=== PATIENT | female | born 1980 | race Caucasian/White ===

== ENCOUNTER → 2016-03-21 | Outpatient (CLI) | payer OTHER ==
[~2016-03-21] MED LIST: ALBUAER19 INH; ALPR1TAB2 PO; BACL10TA PO; FLUT1AER5 INH; GABA-113 PO; LEVOIUD PV; OXCA300T4 PO; OXYC-57 PO; PRED50TA PO; PROM25TA9 PO; RIZA10TA18 PO; TPM/50 PO; TRAZ50TA35 PO; VILA1TAB3 PO
[2016-03-21 14:59] LABS: THYROID STIMULATING HORMONE 0.716 uIu/ml (0.300-4.500)
== END | disposition home or self-care (01) ==
LOC: C.LAB 13:57
PROVIDERS: ATTEND Psychiatry & Neurology Psychiatry
DX: F33.2 Major depressive disorder, recurrent severe without psychotic features (principal)

== ENCOUNTER → 2016-08-13 | Outpatient (CLI) | payer OTHER ==
[~2016-08-13] MED LIST changes: -OXYC-57 PO
--- NOTE | 2016-08-13 13:27 | MAMMOGRAPHY REPORT ---
BILATERAL DIGITAL DIAGNOSTIC MAMMOGRAM TOMOSYNTHESIS WITH CAD AND TARGETED LEFT ULTRASOUND: 08/13/2016 CLINICAL HISTORY: 35-year-old woman with a history of bilateral silicone implants, placed approximate ly 5 years ago, presents with pain along the inferior and medial aspect of the left breast, and swell ing and fullness in the left upper outer quadrant. No skin erythema or nipple discharge. TECHNIQUE: Bilateral CC and MLO views of the breasts with and without implant placement views were ob tained. The symphysis was also performed on the implant displaced views. Current study was also lucero luated with a Computer Aided Detection (CAD) system. COMPARISON: Comparison is made to exams dated: 06/20/2013 ultrasound, 06/20/2013 mammogram, 01/02/2011 ultrasound, 01/02/2011 mammogram, 04/13/2009 ultrasound, and 04/13/2009 mammogram - [facility]. BREAST COMPOSITION: The tissue of both breasts is heterogeneously dense, which may obscure small mas ses. FINDINGS: Bilateral subpectoral silicone implants are stable compared to prior mammograms. On the im plant displaced left MLO view there is a possible oval 7 mm mass in the anterior slightly superior br east for which further evaluation with ultrasound was performed. No other new suspicious mass, archi tectural distortion or cluster of microcalcifications is seen bilaterally. Targeted ultrasound was performed along the inferior and medial left breast in the areas of pain desc ribed by the patient. Also throughout the upper outer quadrant in the area of swelling. From the 5: 00, 6:00, 7:00 and medial aspect of the left breast, normal fibroglandular tissue is seen without a s uspicious solid or cystic mass. In the 12:00 periareolar left breast, there is an oval parallel circ umscribed anechoic simple cyst with posterior acoustic enhancement, measuring 6.9 x 3.4 x 6.5 mm. Th is likely correlates with the partially circumscribed mammographic mass seen on the endplate displace d MLO view and is benign. The patient also reported pain while scanning over this mass. Throughout the remainder of the left upper outer quadrant including the axilla, no suspicious solid or cystic ma ss is seen. A few morphologically normal lymph nodes are identified in the left axilla. IMPRESSION: ACR BI-RADS CATEGORY 2: BENIGN, TARGETED ULTRASOUND ACR BI-RADS CATEGORY 2: BENIGN 1. There is no mammographic or targeted sonographic evidence of malignancy. Bilateral subpectoral s ilicone implants are stable compared to prior mammograms. 2. A benign anechoic simple cyst is seen in the 12:00 periareolar left breast and the patient report ed pain while ultrasounding over this mass. 3. Other than a benign cyst, there is no suspicious abnormality or suspicious lymphadenopathy to exp irina the larger areas of medial and inferior pain and upper outer quadrant swelling. Therefore, clin ical follow-up is recommended. These results and recommendations were discussed with the patient at the time of the exam. Approximately 10% of breast cancers are not detected with mammography. A negative mammographic report should not delay biopsy if a clinically suggestive mass is present. Cortney Steven M.D. ay/:08/13/2016 11:00:17 Scrap Baller: Dany LYN(R)(M), [facility] letter sent: Normal 1/2 BI-RADS Code: ACR BI-RADS Category 2: Benign Ultrasound BI-RADS: ACR BI-RADS Category 2: Benign
== END | disposition home or self-care (01) ==
LOC: C.MAMM 08:48
PROVIDERS: ATTEND Surgery Plastic and Reconstructive Surgery
DX: N64.4 Mastodynia (principal); N60.09 Solitary cyst of unspecified breast

== ENCOUNTER 2016-11-27 22:20 | Emergency (ER) | payer OTHER ==
[~2016-11-27] VITALS: Ht 170.2 cm; Wt 68.3 kg
[~2016-11-27 22:20] MED LIST changes: -PRED50TA PO
[2016-11-27 22:23] VITALS: TEMP 36.9; Ht 170.2 cm; Wt 68.3 kg
[2016-11-27] MEDS ORDERED: ONDANSETRON 4MG OD TAB PO STA (22:37)
[2016-11-27] MEDS ORDERED: KETOROLAC TROMETHAMINE 60 MG/2 ML VIAL IM STA (22:37)
[2016-11-28 00:31] VITALS: BP 118/85
[2016-11-28 00:35] VITALS: PULSE 68; O2SAT 98
[2016-11-28] MEDS ORDERED: PRED50TA PO (00:35)
--- NOTE | 2016-11-28 06:49 | EMERGENCY ROOM VISIT NOTE ---
History First contact with patient: 22:28 Chief Complaint: NECK PAIN Stated Complaint: SEVERE NECK & BACK PAIN History of Present Illness The patient is a 36 year old female who presents to the Emergency Room with complaints of lower neck pain that has been slowly worsening over the past week. The patient does not recall distinct injury or trauma. She has followed with a chiropractor for this, and she states the chiropractor did improve her back pain, but not her neck pain. Most of her discomfort is in the lower neck, and the discomfort worsens with flexion and extension of the neck. The patient does not have lightheadedness, dizziness, vision changes, or hearing changes. No recent fever or illness. She evidently has been taking baclofen, ibuprofen, and Tylenol for her symptoms without significant improvement. The patient was having difficulty with rest tonight, prompting her presentation. She does not have numbness or paresthesias. No neck surgery in the past. She rates her discomfort a 9/10. Review of Systems More than 10 systems were reviewed and otherwise negative with the exception of history of present illness. 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 (3) Depression (4) DYSPLASIA OF CERVIX, UNSPECIFIED (5) ESOPHAGEAL REFLUX (6) HUMAN PAPILLOMA VIRUS (7) INFECTIOUS MONONUCLEOSIS (8) Migraine (9) MIGRAINE UNSPECIFIED W/O INTRACTABLE MIGRAINE Family History FHx: lung disease Social History Smoking Status: Never Smoker Alcohol Use: occasionally Drug Use: other Marital Status: , in relationship Housing Status: lives with family Occupation Status: employed Current/Historical Medications Scheduled Gabapentin (Neurontin), 300 MG PO HS Levonorgestrel (Iud) (Mirena), 1 PV CONTINOUS Prednisone (Prednisone), 50 MG PO DAILY Topiramate (Topamax), 50 MG PO HS Trazodone Hcl (Trazodone), 50 MG PO HS Vilazodone Hcl (Viibryd), 40 MG PO HS Scheduled PRN Alprazolam (Xanax), 1 TAB PO BID PRN for Anxiety Baclofen (Lioresal), 10 MG PO TID PRN for Muscle Spasms Promethazine Hcl (Phenergan), 25 MG PO Q6H PRN for Nausea Rizatriptan Benzoate (Maxalt), 10 MG PO DAILY PRN for Headache Physical Exam Vital Signs Date Time Temp Pulse Resp B/P (MAP) Pulse Ox O2 Delivery O2 Flow Rate FiO2 11/28/16 00:35 68 16 98 11/28/16 00:31 118/85 11/28/16 00:20 69 100 11/28/16 00:05 73 100 11/28/16 00:01 113/85 11/27/16 23:50 76 100 11/27/16 23:37 74 16 115/86 100 Room Air 11/27/16 23:36 115/86 11/27/16 22:23 36.9 95 16 139/96 97 Room Air Physical Exam VITALS: Vitals are noted on the nurse's note and reviewed by myself. Vital signs stable. GENERAL: Well-developed, well-nourished, white female, who is in no acute distress and resting comfortably. Patient is cooperative with the examination. NECK: Supple without nuchal rigidity. No lymphadenopathy. No thyromegaly. Cervical spine is with mild tenderness at the C5-C6 level with mild paravertebral spasm. No meningismus. HEART: Regular rate and rhythm without murmurs gallops or rubs. LUNGS: Clear to auscultation bilaterally without wheezes, rales or rhonchi. No retractions or accessory muscle use. MUSCULOSKELETAL: No muscle atrophy, erythema, or edema noted. Full range of motion without joint tenderness in all extremities. NEURO: Patient was alert and oriented to person place and time. CN II through XII grossly intact. Medical Decision & Procedures Medications Administered Medications (Trade) Dose Ordered Sig/Patricia Route Start Time Stop Time Status Last Admin Dose Admin Ketorolac Tromethamine (Toradol Inj) 60 mg NOW STAT IM 11/27/16 22:37 11/27/16 22:39 DC 11/27/16 22:45 60 MG Ondansetron HCl (Zofran Odt) 4 mg NOW STAT PO 11/27/16 22:37 11/27/16 22:39 DC 11/27/16 22:45 4 MG ED Course Physical exam and history were performed. Nursing notes, EMR, and Medication List were personally reviewed. Patient appears to have lower neck pain for the past several days. On exam she does have some tenderness and spasm. She was given 60 mg IM Toradol here in the department and x-rays. X-rays were reviewed by myself and my attending, and are without significant acute findings. Overall the patient appears well for discharge home. I suspect her symptoms are musculoskeletal in nature, and she should continue her baclofen. I will also provide her a short course of prednisone to help with symptoms. She evidently has an upcoming appointment with orthopedics next week, and should continue this. She was otherwise invited back to the ER with any new, worsening, or concerning symptoms. The chart was completed utilizing [employer] Speech Voice Recognition Software. Grammatical errors, random word insertions, pronoun errors, and incomplete sentences are an occasional consequence of this system due to software limitations, ambient noise, and hardware issues. Any formal questions or concerns about the content, text, or information contained within the body of this dictation should be directly addressed to the provider for clarification. . Medical Decision Differential diagnosis includes, but is not limited to: Sprain, strain, fracture , dislocation, subluxation, contusion, aneurysm/dissection, vascular injury, meningitis, encephalitis, and others [place] Drug Monitoring Program Search Results: patient reviewed within database Drug Monitoring Findings: Multiple prescriptions for Xanax and Adderall over the past one year. 40 total prescription for controlled substances in the past 12 months. Medication Reconcilliation Current Medication List: was personally reviewed by me Blood Pressure Screening Patient's blood pressure: Normal blood pressure Impression Primary Impression: Neck pain Departure Information Dispostion Home / Self-Care Condition GOOD Prescriptions Prednisone (Prednisone) 50 Mg Tab 50 MG PO DAILY for 4 Days, #4 TAB Prov: Koffi Schwab PA-C 11/28/16 Forms HOME CARE DOCUMENTATION FORM, Work Instructions, Additional Instructions: Patient was evaluated in the emergency department for medical care. Retur to work on 11/30/2016. Please excuse. IMPORTANT VISIT INFORMATION Patient Instructions My [facility] Additional Instructions You were seen and evaluated today on an emergency basis only. This is not a substitute for, or an effort to provide, complete comprehensive medical care. It is not possible to recognize and treat all injuries or illnesses in a single emergency department visit. For this reason it is recommended that you followup with your primary care physician or orthopedist for ongoing care and evaluation. For baseline pain relief you may alternate ibuprofen and acetaminophen every 4 hours for pain control. Take 600 mg ibuprofen (Advil) and then 4 hours later take 1000 mg acetaminophen (Tylenol). Do not take more than 3000 mg acetaminophen in a single day. Continue baclofen as prescribed Take prednisone as prescribed You are welcome to return to the emergency department anytime with new, worsening, or concerning symptoms. Work Instructions Additional Work Instructions: Patient was evaluated in the emergency department for medical care. Return to work on 11/30/2016. Please excuse.
--- NOTE | 2016-11-28 07:15 | DIAGNOSTIC IMAGING REPORT ---
C-SPINE ROUTINE 4 OR 5 VIEWS CLINICAL HISTORY: 36 years-old Female presenting with Low neck pain, posterior C7 pain. TECHNIQUE: Lateral, bilateral oblique, frontal, and open-mouth odontoid views of the cervical spine were obtained. COMPARISON: 01/30/2016. FINDINGS: The C7 vertebral body is fully visualized. No radiographic evidence of fracture or subluxation. Vertebral bodies maintain normal height and alignment. Normal predental interval. Lateral masses of C1 articulate normally with C2. No osseous neural foraminal narrowing. No prevertebral soft tissue swelling. Lung apices clear. IMPRESSION: No radiographic evidence of acute fracture or subluxation. Electronically signed by: Guille Adam M.D. 11/28/2016 7:13 AM Dictated Date/Time: 11/28/2016 7:12 AM
== END 2016-11-28 00:41 | disposition home or self-care (01) ==
LOC: C.EDB 22:21
DX: M54.2 Cervicalgia (principal); F41.9 Anxiety disorder, unspecified; Z86.73 Personal history of transient ischemic attack (TIA), and cerebral infarction without residual deficits; F32.9 Major depressive disorder, single episode, unspecified; K21.9 Gastro-esophageal reflux disease without esophagitis; G43.909 Migraine, unspecified, not intractable, without status migrainosus; Z86.19 Personal history of other infectious and parasitic diseases; Z83.6 Family history of other diseases of the respiratory system; Z79.899 Other long term (current) drug therapy

== ENCOUNTER → 2017-03-11 | Outpatient (CLI) | payer OTHER ==
[~2017-03-11] MED LIST changes: -ALBUAER19 INH; -FLUT1AER5 INH; +LEVO1IUD2 PV; -LEVOIUD PV; -OXCA300T4 PO
[2017-03-11 12:12] LABS: HEMATOCRIT 43.2 % (37-47); HEMOGLOBIN 14.7 g/dL (12.0-16.0); MEAN CELL VOLUME 95.6 fL (80-100); MEAN CORPUSCULAR HEMOGLOBIN 32.5 pg (25-34); MEAN PLATELET VOLUME 9.9 fL (7.4-10.4); PLATELET COUNT 279 K/uL (130-400); RED CELL DISTRIBUTION WIDTH CV 13.1 % (11.5-14.5); WHITE BLOOD COUNT 4.87 K/uL (4.8-10.8)
[2017-03-11 12:26] LABS: ALBUMIN 4.1 gm/dl (3.4-5.0); ALT/SGPT 22 U/L (12-78); AST/SGOT 12 U/L (15-37); BLOOD UREA NITROGEN 13 mg/dl (7-18); CALCIUM 9.2 mg/dl (8.5-10.1); CARBON DIOXIDE 26 mmol/L (21-32); CHOLESTEROL 121 mg/dl (0-200); CREATININE 0.95 mg/dl (0.60-1.20); GLUCOSE 89 mg/dl (70-99); POTASSIUM 3.6 mmol/L (3.5-5.1); SODIUM 140 mmol/L (136-145)
[2017-03-11 12:35] LABS: ALKALINE PHOSPHATASE 61 U/L (45-117); LDL CHOLESTEROL CALCULATED 58 mg/dl; TOTAL PROTEIN 6.9 gm/dl (6.4-8.2)
[2017-03-11 12:43] LABS: T3 FREE 4.04 pg/ml (2.30-4.20)
== END | disposition home or self-care (01) ==
LOC: C.LAB 10:06
PROVIDERS: ATTEND Psychiatry & Neurology Psychiatry
DX: F33.2 Major depressive disorder, recurrent severe without psychotic features (principal)

== ENCOUNTER → 2017-10-13 | Outpatient (CLI) | payer OTHER ==
[2017-10-13 15:55] LABS: BASO % 0.9 %; BASO ABS # 0.05 K/uL (0-0.2); EOS % 1.1 %; EOS ABS # 0.06 K/uL (0-0.5); HEMATOCRIT 44.2 % (37-47); HEMOGLOBIN 15.4 g/dL (12.0-16.0); IG# 0.01 K/uL (0.00-0.02); LYMPH % 45.9 %; LYMPH ABS # 2.61 K/uL (1.2-3.4); MEAN CELL VOLUME 94.8 fL (80-100); MEAN CORPUSCULAR HGB CONC 34.8 g/dl (32-36); NEUT % 44.9 %; NEUT ABS # 2.56 K/uL (1.4-6.5); PLATELET COUNT 252 K/uL (130-400); RED CELL DISTRIBUTION WIDTH CV 12.6 % (11.5-14.5); RED CELL DISTRIBUTION WIDTH SD 43.5 fL (36.4-46.3); WHITE BLOOD COUNT 5.69 K/uL (4.8-10.8)
[2017-10-13 16:19] LABS: ALBUMIN 3.9 gm/dl (3.4-5.0); ALKALINE PHOSPHATASE 69 U/L (45-117); ALT/SGPT 21 U/L (12-78); AST/SGOT 11 U/L (15-37); BLOOD UREA NITROGEN 14 mg/dl (7-18); CALCIUM 8.3 mg/dl (8.5-10.1); CARBON DIOXIDE 21 mmol/L (21-32); CREATININE 0.99 mg/dl (0.60-1.20); GLUCOSE 82 mg/dl (70-99); POTASSIUM 3.8 mmol/L (3.5-5.1); SODIUM 137 mmol/L (136-145); TOTAL PROTEIN 6.6 gm/dl (6.4-8.2)
== END | disposition home or self-care (01) ==
LOC: C.LAB 14:32
PROVIDERS: ATTEND Psychiatry & Neurology Psychiatry
DX: F33.2 Major depressive disorder, recurrent severe without psychotic features (principal)

== ENCOUNTER 2018-08-09 19:20 | Inpatient (IN) ==
--- OUTSIDE RECORDS SUMMARY | 2018-08-09 19:23 | External Medical Summary | Continuity of Care Document ---
:1980 Author Name Low Sadler, Provider Address Unavailable Unavailable , Care Team Providers Name Role Phone Tay Mackey [email or web address] Raghu Sadler, Sials [email or web address] Saulo COPELAND Unavailable Unavailable Unavailable Unavailable Unavailable Assessments Assessed Problems:Dysplastic nevusNeoplasm of uncertain behavior of skinActinic keratosisAcne vulgaris Problems Headache (784.0) (R51) Depression with anxiety (300.4) (F41.8) Perioral dermatitis (695.3) (L71.0) Hypertrophic scar (701.4) (L91.0) Acne vulgaris (706.1) (L70.0) Neoplasm of uncertain behavior of skin (238.2) (D48.5) Actinic keratosis (702.0) (L57.0) Dysplastic nevus (216.9) (D23.9) Migraine headache (346.90) (G43.909) Allergies and Adverse Reactions Erythromycin Derivatives (Allergy) Penicillins (Allergy) Sulfa Drugs (Allergy) Medications Clindamycin Phosphate 1 % External Solut ion; APPLY SPARINGLY TO AFFECTED AREA(S) TWICE DAILY Viktoriya Mackey Start: 16-Dec-2016 Quantity: 1 60 ML Bottle Refills: 3 Mirena (52 MG) 20 MCG/24HR Intrauterine Intrauterine D Viktoriya Guzman Start: 29-Jul-2013 Refills: 0 Maxalt-SERVICE MECH[employer]IC 10 MG Oral Tablet Disintegrat ing; TAKE 1 TABLET AT ONSET OF HEADACHE. MAY REPEAT EVERY 2 HOURS NEEDED. MAXIMUM 3 TABLETS IN 24 HOURS. Viktoriya Krishnamurthy Start: 18-Nov-2010 Quantity: 9 Refills: 5 Procedures Procedures not documented Immunizations Immunizations not documented Social History - Smoking Status Never smoker Interventions Medication ChangesClindamycin Phosphate 1 % External Solution - Start Follow-ups/ReferralsFollow-up visit in 1 year; Done: 16 Dec 2016 Plan of Treatment Planned Observations Planned Goals not documented Results No Known Results Results not documented Encounters Appointment; Tay Mackey M.D. 16-Dec-2016 11:00 Encounter Diagnosis: Problem not documented
[2018-08-09] MEDS ORDERED: KETOROLAC TROMETHAMINE 15 MG/ML VIAL IV ONE (19:50)
[2018-08-09] MEDS ORDERED: ONDANSETRON INJ 2 MG/ML 2 ML VIAL IV STA (19:50)
[2018-08-09] MEDS ORDERED: SODIUM CHLORIDE 0.9% 1000ML 2,000 ML IV ONE (19:50)
[2018-08-09 20:28] LABS: Hematocrit (blood only) 36.4 % (37-47); Hemoglobin 12.3 g/dL (12.0-16.0); Mean Corpuscular Hgb Conc 33.8 g/dL (32-36); Mean Corpuscular Volume 88.3 fL (80-100); Mean Platelet Volume 9.5 fL (7.4-10.4); Platelet Count 257 K/uL (130-400); RDW Coefficient of Variation 13.5 % (11.5-14.5); RDW Standard Deviation 43.6 fL (36.4-46.3); Red Blood Count 4.12 M/uL (4.2-5.4); White Blood Count 11.32 K/uL (4.8-10.8)
[2018-08-09 20:56] LABS: Albumin Level 3.2 gm/dl (3.4-5.0); BUN Creatinine Ratio 17.1 (10-20); Calcium 8.2 mg/dl (8.5-10.1); Creatinine Clr Calc Pharmacy 77.7 ml/min; Est GFR (African American) 84.2; Est GFR (Non-African American) 72.7; Potassium 3.5 mmol/L (3.5-5.1)
[2018-08-09 20:57] LABS: Basophils # (auto) 0.02 K/uL (0-0.2); Basophils % (auto) 0.2 %; Eosinophils # (auto) 0.04 K/uL (0-0.5); Eosinophils % (auto) 0.4 %; Immature Granulocytes # (auto) 0.03 K/uL (0.00-0.02); Immature Granulocytes % (auto) 0.3 %; Lymphocytes # (auto) 1.36 K/uL (1.2-3.4); Monocytes # (auto) 0.56 K/uL (0.11-0.59); Monocytes % (auto) 4.9 %; Neutrophils # (auto) 9.31 K/uL (1.4-6.5); Neutrophils % (auto) 82.2 %
[2018-08-09 20:58] LABS: Bilirubin,Total 0.8 mg/dl (0.2-1); Globulin 3.1 gm/dl (2.5-4.0); Total Protein 6.3 gm/dl (6.4-8.2)
[2018-08-09 21:07] LABS: iSTAT Creatinine 0.9 mg/dl (0.6-1.3); iSTAT Hemoglobin 12.2 g/dl (12.0-16.0); iSTAT Ionized Calcium 1.17 mmol/l (1.12-1.32); iSTAT Potassium 3.5 mEq/L (3.3-5.0)
[2018-08-09] MEDS ORDERED: OPTIRAY 320 125ml IV PRN (21:24)
[2018-08-09 21:44] LABS: Appearance Urine Cloudy (Clear); Bacteria Urine Automated 1+ (Negative); Bilirubin Urine Negative (Negative); Blood Urine Negative (Negative); Color Urine Dark Yellow; Epithelial Cell Urine Auto >30 /lpf (0-5); Glucose Urine UA Negative (Negative); Ketones Urine 1+ (Negative); Leukocyte Esterase Urine Trace (Negative); Nitrite Urine Negative (Negative); Protein Urine Trace (Negative); RBC Urine Automated 0-4 /hpf (0-4); Urobilinogen Urine Negative (Negative)
--- NOTE | 2018-08-09 21:53 | CT Scan Report ---
CHEST CTA for PULMONARY ARTERIES CT DOSE: 519.89 mGy.cm HISTORY: pleuritic chest pain hypotensive recent surg TECHNIQUE: Multiaxial CT images of the chest were performed following the intravenous administration of contrast to evaluate the pulmonary arteries. Maximal intensity projection images were also obtaine d. A dose lowering technique was utilized adhering to the principles of ALARA. COMPARISON STUDY: Chest CTA 02/04/2016. FINDINGS: There is extensive posterior spinal fusion throughout the majority of the thoracic spine wi th pedicle screws and rods. The hardware appears intact. This results in mild artifact throughout the pulmonary arteries. However, no definite filling defects within the pulmonary arteries to suggest pu lmonary embolus. Normal caliber thoracic aorta with no evidence for dissection. Trace bilateral pleur al effusions. The heart is normal in size. No pericardial effusion. Normal esophagus. No mediastinal or hilar lymphadenopathy. Bilateral breast implants are again noted. No pneumothorax. The central air ways are patent. Mild dependent changes seen within the lung bases posteriorly. Otherwise, the lungs are clear. Small focal right perihilar area of air trapping is noted. IMPRESSION: 1. No evidence for pulmonary embolus with limitations as described above. 2. Extensive posterior spinal fusion throughout the majority of the thoracic spine. The hardware appe ars intact. 3. Trace bilateral pleural effusions. Electronically signed by: Jacky Howe M.D. 08/09/2018 9:52 PM
--- NOTE | 2018-08-09 21:59 | CT Scan Report ---
ABDOMEN AND PELVIS CT WITH IV CONTRAST CT DOSE: HISTORY: periumbilical abd pain w/ fevers TECHNIQUE: Multiaxial CT images of the abdomen and pelvis were performed following the use of intrave nous contrast. A dose lowering technique was utilized adhering to the principles of ALARA. COMPARISON STUDY: Abdomen and pelvis CT 08/26/2013. FINDINGS: Mild dependent changes and trace bilateral pleural effusions are noted at the lung bases. T here are bilateral breast implants. No pneumoperitoneum. No pneumatosis. Extensive posterior spinal f usion seen within the thoracic and upper lumbar spine. The visualized hardware appears intact. The li angelina, spleen, gallbladder, pancreas, and adrenal glands are unremarkable. A few subcentimeter bilatera l renal hypodense lesions. These are generally too small to characterize but statistically represent cysts. No hydronephrosis. Metallic artifact from the spinal fusion hardware results in suboptimal lucero luation of the abdominal structures. Trace pericholecystic fluid. No gallbladder wall thickening. Thi s could be due to overhydration. No retroperitoneal lymphadenopathy. An intrauterine device is in goo d position. The bladder and ovaries are unremarkable. No evidence for bowel obstruction. Moderate wel l-formed stool within the colon. The appendix is fluid-filled and demonstrates a thickened wall with adjacent periappendiceal fat stranding. Therefore, this is consistent with acute appendicitis. The ap pendix measures up to 1 cm diameter. No evidence for a periappendiceal abscess or perforation at this time. IMPRESSION: 1. Acute appendicitis. 2. Trace bilateral pleural effusions and trace pericholecystic fluid. This may be due to overhydratio n. No gallbladder wall thickening. Electronically signed by: Jacky Howe M.D. 08/09/2018 9:57 PM
[2018-08-09 22:06] LABS: Amphetamines+Metham, Urine Neg (Neg); Barbiturates, Urine Neg (Neg); Benzodiazepine, Urine Pos (Neg); Cocaine, Urine Neg (Neg); MDMA (Ecstacy), Urine Neg (Neg); Methadone, Urine Neg (Neg); Opiate, Urine Pos (Neg); Phencyclidine, Urine Neg (Neg)
[2018-08-09] MEDS ORDERED: PIPERACILL/TAZOBAC CONSULT ACTIVE PRN (22:26)
[2018-08-09] MEDS ORDERED: PIPERACILLIN/TAZOBACTAM 3.375 GM/115 ML BAG IV ONE (22:30)
[2018-08-09] MEDS ORDERED: BUPIVACAINE 0.5 % 5 MG/1 ML MPF 30ML VIAL ONE (22:34)
--- NOTE | 2018-08-09 22:34 | History & Physical Report ---
Date of Service August 09, 2018 Assessment & Plan (1) Appendicitis: pt with acute appendicitis- for laparoscopic appendectomy possible open operation understands possible risks of bleeding, infection, bowel bladder injury History of Present Illness Primary Care Provider: Kaleb Aviles DO to ER with acute abd pain- CT shows acute appendicitis CTA neg for PE or acute process Allergies Allergy/AdvReac Type Severity Reaction Status Date / Time cefixime Allergy Severe ANAPHYLAXIS Verified 08/09/18 22:18 erythromycin base Allergy Severe HIVES Verified 08/09/18 22:18 sodium benzoate Allergy Severe ANAPHYLAXIS Verified 08/09/18 22:19 Sulfa (Sulfonamide Allergy Intermediate ITCHY Verified 08/09/18 22:18 Antibiotics) procaine AdvReac Severe RAPID Verified 08/09/18 22:18 HEART BEAT Home Medications Home Medications Medication Instructions Recorded Confirmed Type acetaminophen [Tylenol] 795 mg PO Q6H PRN 03/11/18 08/09/18 History duloxetine 60 mg PO QAM 03/11/18 08/09/18 History levonorgestrel [Mirena] 1 applic INTRAUTERINE UD 03/11/18 08/09/18 History naloxegol [Movantik] 25 mg PO DAILY #7 tab 03/11/18 08/09/18 Rx rizatriptan 10 mg PO DAILY PRN 03/11/18 08/09/18 History topiramate 75 mg PO BID 03/11/18 08/09/18 History trazodone 300 mg PO HS 03/11/18 08/09/18 History amoxapine 25 mg PO QAM 08/09/18 08/09/18 History lubiprostone [Amitiza] 8 mcg PO BIDM 08/09/18 08/09/18 History morphine 15 mg PO BID 08/09/18 08/09/18 History ondansetron 4 mg TRANSLINGUAL Q8H PRN 08/09/18 08/09/18 History oxycodone 30 mg PO Q4H PRN 08/09/18 08/09/18 History promethazine 25 mg PO Q6H PRN 08/09/18 08/09/18 History tizanidine 6 mg PO Q6H PRN 08/09/18 08/09/18 History Past Med/Surg History Medical History Chronic back pain Surgical History Spinal surgery in prior 3 months Social History Preferred Language: Croatian Feels Safe at Home: Yes Smoking Status: Never smoker Review of Systems All systems reviewed & are unremarkable except as noted in HPI & below Physical Exam Constitutional: well developed and well nourished; no acute distress Eyes: + anicteric sclerae Neck: normal visual inspection Respiratory: normal respiratory effort; no respiratory distress Cardiovascular: Rate/Rhythm: regular rate and regular rhythm Gastrointestinal (Abdomen): Inspection/Auscultation: abdomen normal to inspection Percussion/Palpation: + abdomen tender and abdomen soft tender RLQ Skin: no rashes, warm and dry Results & Data Vital Signs (Past 12 Hours) Vital Signs Temp Pulse Pulse Resp BP BP Pulse Ox 08/09/18 21:58 70 18 92/55 L 100 08/09/18 20:37 68 16 93/51 L 96 08/09/18 20:33 96 08/09/18 19:29 37.1 C 93 H 16 81/47 L 116 H
[2018-08-09] MEDS ORDERED: TIZANIDINE HCL 4 MG TABLET PO PRN (23:05)
[2018-08-09] MEDS ORDERED: PROMETHAZINE HCL 12.5 MG in SODIUM CHLORIDE 0.9% 50 ML IV PRN (23:06)
[2018-08-09 23:10] LABS: Magnesium 2.1 mg/dl (1.8-2.4)
[2018-08-09] MEDS ORDERED: PROPOFOL IV EMULSION 10 MG/ML 20 ML VIAL IV ONE (23:47)
[2018-08-09] MEDS ORDERED: SUCCINYLCHOLINE 100MG/5ML SYR ONE (23:47)
[2018-08-09] MEDS ORDERED: LIDOCAINE HCL 2% 2 ML VIAL/AMP(20MG/ML) INFIL ONE (23:47)
[2018-08-09] MEDS ORDERED: fentaNYL citrate 100 MCG/2 ML VIAL ONE (23:48)
--- NOTE | 2018-08-10 00:07 | Anesthesiology Consultation ---
Date of Service August 10, 2018 Assessment & Plan (1) Encounter for pre-operative examination: Chart Review Chart Review: Acceptable Risk for Surgery and Patient NOT seen in Pre Admission Testing Consults Requested none History Surgery Operation Date: 08/09/18 22:30 Proposed Procedures p Laparoscopic Appendectomy - Lucas Saba MD, FACS Height/Weight Height: 5 ft 8 in Weight: 67.6 kg Allergies Allergy/AdvReac Type Severity Reaction Status Date / Time cefixime Allergy Severe ANAPHYLAXIS Verified 08/09/18 22:18 erythromycin base Allergy Severe HIVES Verified 08/09/18 22:18 sodium benzoate Allergy Severe ANAPHYLAXIS Verified 08/09/18 22:19 Sulfa (Sulfonamide Allergy Intermediate ITCHY Verified 08/09/18 22:18 Antibiotics) procaine AdvReac Severe RAPID Verified 08/09/18 22:18 HEART BEAT Medications Home Medications Medication Instructions Recorded Confirmed Last Taken acetaminophen [Tylenol] 795 mg PO Q6H PRN 03/11/18 08/09/18 03/10/18 duloxetine 60 mg PO QAM 03/11/18 08/09/18 03/10/18 levonorgestrel [Mirena] 1 applic INTRAUTERINE UD 03/11/18 08/09/18 03/11/18 naloxegol [Movantik] 25 mg PO DAILY #7 tab 03/11/18 08/09/18 Unknown rizatriptan 10 mg PO DAILY PRN 03/11/18 08/09/18 Unknown topiramate 75 mg PO BID 03/11/18 08/09/18 03/10/18 trazodone 300 mg PO HS 03/11/18 08/09/18 03/10/18 amoxapine 25 mg PO QAM 08/09/18 08/09/18 Unknown lubiprostone [Amitiza] 8 mcg PO BIDM 08/09/18 08/09/18 Unknown morphine 15 mg PO BID 08/09/18 08/09/18 Unknown ondansetron 4 mg TRANSLINGUAL Q8H PRN 08/09/18 08/09/18 Unknown oxycodone 30 mg PO Q4H PRN 08/09/18 08/09/18 Unknown promethazine 25 mg PO Q6H PRN 08/09/18 08/09/18 Unknown tizanidine 6 mg PO Q6H PRN 08/09/18 08/09/18 Unknown Active Medications Generic Name Dose Route Start Last Admin Trade Name Ynes PRN Reason Stop Dose Admin Ioversol 115 ml 08/09/18 21:24 08/09/18 21:24 Optiray 320 125ml IV 08/13/18 21:23 115 ml ONCE PRN Administration Interaction Checking NPO Date Last Intake of Fluids: 08/09/18 Time Last Intake of Fluids: 20:00 Date Last Intake of Solids: 08/07/18 Past Medical History Medical History Chronic back pain Past Surgical History Surgical History Spinal surgery in prior 3 months Social History Smoking Status: Never smoker Physical Exam Vital Signs Last Vital Signs Temp 37.1 C 08/09/18 19:29 Pulse 70 08/09/18 22:51 Resp 18 08/09/18 22:51 BP 95/72 L 08/09/18 22:51 Pulse Ox 100 08/09/18 22:51
[2018-08-10] MEDS ORDERED: ATROPINE SULFATE 0.1 MG/ML 10ML SYR IV PRN (00:11)
[2018-08-10] MEDS ORDERED: ePHEDrine sulfate 50 MG/ML AMP IV PRN (00:11)
[2018-08-10] MEDS ORDERED: HYDROmorphone INJ 1 MG/ML SYRINGE IV PRN ×2 (00:11→01:49)
[2018-08-10] MEDS ORDERED: fentaNYL citrate 100 MCG/2 ML VIAL ONE (00:36)
--- NOTE | 2018-08-10 01:06 | Emergency Department Note ---
Entered by Zoraida Thomas acting as a scribe for Mario Kaminski DO History of Present Illness General Chief complaint: Abdominal Pain Stated complaint: ABD PAIN, FEVER, HEADACHE Source: patient History of Present Illness Provider complaint: abdominal pain Onset (ago): day(s) 3 Location: abdomen Severity: severe Maximum Pain Intensity: 8 Quality: + other (pressure) Associated symptoms: + headaches, + nausea/vomiting and + other (+diarrhea) Treatments prior to arrival: other (Tylenol) The patient is a 37 year old female who presents to the Emergency Room with complaints of abdominal pain. The patient states that she has had severe abdominal pain in her mid-abdomen that started on Thursday. She states that the pain feels like pressure and it worsens when she takes deep breaths. The patient states that after the pain she had nausea, vomiting, and diarrhea that lasted all night, but has subsided today. She reports that she has a headache that she took Tylenol for an hour ago. She states she is currently Opioid tapering that was prescribed by her PCP. The patient reports that she was on Opioids for 7 months and she has been tapering for 2 months. She states that she takes 4 a day. She denies any previous similar episodes. She denies any previous withdrawal treatments. The patient states that she has a history of hypertension. Home Medications Home Medications Medication Instructions Recorded Confirmed Type acetaminophen [Tylenol] 795 mg PO Q6H PRN 03/11/18 08/09/18 History duloxetine 60 mg PO QAM 03/11/18 08/09/18 History levonorgestrel [Mirena] 1 applic INTRAUTERINE UD 03/11/18 08/09/18 History naloxegol [Movantik] 25 mg PO DAILY #7 tab 03/11/18 08/09/18 Rx rizatriptan 10 mg PO DAILY PRN 03/11/18 08/09/18 History topiramate 75 mg PO BID 03/11/18 08/09/18 History trazodone 300 mg PO HS 03/11/18 08/09/18 History amoxapine 25 mg PO QAM 08/09/18 08/09/18 History lubiprostone [Amitiza] 8 mcg PO BIDM 08/09/18 08/09/18 History morphine 15 mg PO BID 08/09/18 08/09/18 History ondansetron 4 mg TRANSLINGUAL Q8H PRN 08/09/18 08/09/18 History oxycodone 30 mg PO Q4H PRN 08/09/18 08/09/18 History promethazine 25 mg PO Q6H PRN 08/09/18 08/09/18 History tizanidine 6 mg PO Q6H PRN 08/09/18 08/09/18 History Allergies Allergy/AdvReac Type Severity Reaction Status Date / Time cefixime Allergy Severe ANAPHYLAXIS Verified 08/09/18 22:18 erythromycin base Allergy Severe HIVES Verified 08/09/18 22:18 sodium benzoate Allergy Severe ANAPHYLAXIS Verified 08/09/18 22:19 Sulfa (Sulfonamide Allergy Intermediate ITCHY Verified 08/09/18 22:18 Antibiotics) procaine AdvReac Severe RAPID Verified 08/09/18 22:18 HEART BEAT Past Med/Surg History Medical History Chronic back pain Surgical History Spinal surgery in prior 3 months Social History Preferred Language: Czech Feels Safe at Home: Yes Smoking Status: Never smoker Review of Systems See HPI for pertinent positives & negatives. and A total of 10 systems reviewed and were otherwise negative Physical Exam Vital Signs Vital Signs - 24 hr 08/09/18 19:29 08/09/18 20:33 08/09/18 20:37 Temperature 37.1 C Temperature Source Oral Sepsis Recent Fever Within 48 Hours Yes Sepsis Action Taken by Nursing No Action Required Pulse Rate 93 H Pulse Rate [Apical] 68 Pulse Rhythm Regular Pulse Rhythm [Apical] Regular Pulse Strength Normal Pulse Strength [Apical] Normal Respiratory Rate 16 16 Respiratory Effort / Characteristics Non-Labored Non-Labored Respiratory Depth Normal Normal Respiratory Pattern Regular Regular Blood Pressure 81/47 L Blood Pressure [Left Arm] 93/51 L Blood Pressure Mean 58 Blood Pressure Mean [Left Arm] 65 Blood Pressure Position [Left Arm] Lying Pulse Oximetry 116 H 96 96 Oxygen Delivery Method Room Air Room Air Room Air 08/09/18 21:58 08/09/18 22:51 Temperature Temperature Source Sepsis Recent Fever Within 48 Hours Sepsis Action Taken by Nursing Pulse Rate Pulse Rate [Apical] 70 70 Pulse Rhythm Pulse Rhythm [Apical] Pulse Strength Pulse Strength [Apical] Respiratory Rate 18 18 Respiratory Effort / Characteristics Respiratory Depth Respiratory Pattern Blood Pressure Blood Pressure [Left Arm] 92/55 L 95/72 L Blood Pressure Mean Blood Pressure Mean [Left Arm] 67 79 Blood Pressure Position [Left Arm] Pulse Oximetry 100 100 Oxygen Delivery Method Room Air Room Air GENERAL: falling asleep, appeared intoxicated EYE EXAM: normal conjunctiva, PERRL and EOM's grossly intact OROPHARYNX: no exudate, no erythema, lips, buccal mucosa, and tongue normal and mucous membranes are moist NECK: supple, no nuchal rigidity, no adenopathy, non-tender LUNGS: Clear to auscultation. Normal chest wall mechanics HEART: no murmurs, S1 normal and S2 normal ABDOMEN: abdomen soft, non-tender, normo-active bowel sounds, no masses, no rebound or guarding. BACK: Back is symmetrical on inspection and there is no deformity, no midline tenderness, no CVA tenderness. SKIN: no rashes and no bruising UPPER EXTREMITIES: upper extremities are grossly normal. LOWER EXTREMITIES: No pitting edema. NEURO EXAM: Normal sensorium, cranial nerves II-XII grossly intact, normal speech, no gross weakness of arms, no gross weakness of legs. Course 1940: The patient was evaluated in room A9B, and a complete history and physical examination were performed. 2219: I reviewed the patient's case with Dr. Horne [facility] Hospitalist. He will evaluate the patient for further management. Consultations Consultation #1: Dr. Horne [facility] Hospitalist Time: 22:20 Administered Medications Ioversol (Optiray 320 125ml) 115 ml IV ONCE PRN PRN Reason: Interaction Checking Stop: 08/13/18 21:23 Last Admin: 08/09/18 21:24 Dose: 115 ml Documented by: [id number] Discontinued Medications Sodium Chloride (Nss 1000ml) 2,000 mls @ 999 mls/hr IV .Q2H1M ONE Stop: 08/09/18 21:50 Last Admin: 08/09/18 20:30 Dose: 999 mls/hr Documented by: [id number] Piperacillin Sod/Tazobactam Sod (Zosyn) 3.375 gm in 115 mls @ 230 mls/hr IV TODAY@2230 ONE Stop: 08/09/18 22:59 Last Admin: 08/09/18 22:46 Dose: 230 mls/hr Documented by: [id number] Ketorolac Tromethamine (Toradol) 15 mg IV NOW ONE Stop: 08/09/18 19:51 Last Admin: 08/09/18 20:30 Dose: 15 mg Documented by: [id number] Ondansetron HCl (Zofran) 4 mg IV NOW STA Stop: 08/09/18 19:51 Last Admin: 08/09/18 20:30 Dose: 4 mg Documented by: [id number] Medical Decision Making Differential Diagnosis Differential diagnosis: Etiologies such as appendicitis, diverticulitis, PUD, biliary pathology, UTI, pancreatitis, obstruction, mesenteric ischemia, aortic pathology, infections, inflammatory bowel disease, renal colic, as well as others were entertained. Medical Records Attestation: I reviewed the patient's medical records. Home Medications Current Medication List: was personally reviewed by me Laboratory Data Attestation: I reviewed the patient's lab results. Result diagrams: 08/09/18 20:16 08/09/18 20:16 Lab Results 08/09/18 08/09/18 08/09/18 Range/Units 20:16 20:16 20:54 WBC 11.32 H (4.8-10.8) K/uL RBC 4.12 L (4.2-5.4) M/uL Hgb 12.3 (12.0-16.0) g/dL POC Hgb 12.2 (12.0-16.0) g/dl Hct 36.4 L (37-47) % POC Hct 36 L (37-47) % MCV 88.3 (80-100) fL MCH 29.9 (25-34) pg MCHC 33.8 (32-36) g/dL RDW Std Deviation 43.6 (36.4-46.3) fL RDW Coeff of Nelson 13.5 (11.5-14.5) % Plt Count 257 (130-400) K/uL MPV 9.5 (7.4-10.4) fL Immature Gran % (Auto) 0.3 % Neut % (Auto) 82.2 % Lymph % (Auto) 12.0 % Bond % (Auto) 4.9 % Eos % (Auto) 0.4 % Baso % (Auto) 0.2 % Immature Gran # (Auto) 0.03 H (0.00-0.02) K/uL Neut # (Auto) 9.31 H (1.4-6.5) K/uL Lymph # (Auto) 1.36 (1.2-3.4) K/uL Bond # (Auto) 0.56 (0.11-0.59) K/uL Eos # (Auto) 0.04 (0-0.5) K/uL Baso # (Auto) 0.02 (0-0.2) K/uL POC Sodium 133 L (135-144) mEq/L Sodium 133 L (136-145) mmol/L POC Potassium 3.5 (3.3-5.0) mEq/L Potassium 3.5 (3.5-5.1) mmol/L POC Chloride 99 L (101-112) mEq/L Chloride 104 (98-107) mmol/L Carbon Dioxide 25 (21-32) mmol/L POC Total CO2 20 L (24-31) mEq/l Anion Gap 4.0 (3-11) POC Anion Gap 19.0 (16-25) mmol/L POC BUN 17 (7-18) mg/dl BUN 17 (7-18) mg/dl Creatinine 0.98 (0.6-1.2) mg/dl POC Creatinine 0.9 (0.6-1.3) mg/dl Est Cr Clr Drug Dosing 77.7 ml/min Est GFR ( Amer) 84.2 Est GFR (Non-Af Amer) 72.7 BUN/Creatinine Ratio 17.1 (10-20) Glucose 114 H (70-99) mg/dl POC Glucose (other) 118 H (70-99) mg/dl Calcium 8.2 L (8.5-10.1) mg/dl POC Ioniz Calcium Patricio 1.17 (1.12-1.32) mmol/l Magnesium 2.1 (1.8-2.4) mg/dl Total Bilirubin 0.8 (0.2-1) mg/dl AST 8 L (15-37) U/L ALT 15 (12-78) U/L Alkaline Phosphatase 106 (45-117) U/L Total Protein 6.3 L (6.4-8.2) gm/dl Albumin 3.2 L (3.4-5.0) gm/dl Globulin 3.1 (2.5-4.0) gm/dl Albumin/Globulin Ratio 1.0 (0.9-2) Lipase 39 L (73-393) U/L TSH 1.600 (0.300-4.500) uIu/ml Urine Color Urine Appearance (Clear) Urine pH (4.5-7.5) Ur Specific [place] (1.000-1.030) Urine Protein (Negative) Urine Glucose (UA) (Negative) Urine Ketones (Negative) Urine Blood (Negative) Urine Nitrite (Negative) Urine Bilirubin (Negative) Urine Urobilinogen (Negative) Ur Leukocyte Esterase (Negative) Urine WBC (Auto) (0-5) /hpf Urine RBC (Auto) (0-4) /hpf U Hyaline Cast (Auto) (0-5) /lpf U Epithel Cells (Auto) (0-5) /lpf Urine Bacteria (Auto) (Negative) Ur Renal Epithelial Cell POC Ur Test (NEG) Urine Opiates Screen (Neg) Ur Methadone, Qual (Neg) Urine Barbiturates (Neg) Ur Phencyclidine (PCP) (Neg) U Amphetamin/Meth Scrn (Neg) MDMA (Ecstasy) Screen (Neg) U Benzodiazepines Scrn (Neg) Ur Cocaine Metabolite (Neg) U Marijuana (THC) Screen (Neg) Ethyl Alcohol mg/dL (0-3) mg/dl 08/09/18 08/09/18 08/09/18 Range/Units 20:55 21:15 21:15 WBC (4.8-10.8) K/uL RBC (4.2-5.4) M/uL Hgb (12.0-16.0) g/dL POC Hgb (12.0-16.0) g/dl Hct (37-47) % POC Hct (37-47) % MCV (80-100) fL MCH (25-34) pg MCHC (32-36) g/dL RDW Std Deviation (36.4-46.3) fL RDW Coeff of Nelson (11.5-14.5) % Plt Count (130-400) K/uL MPV (7.4-10.4) fL Immature Gran % (Auto) % Neut % (Auto) % Lymph % (Auto) % Bond % (Auto) % Eos % (Auto) % Baso % (Auto) % Immature Gran # (Auto) (0.00-0.02) K/uL Neut # (Auto) (1.4-6.5) K/uL Lymph # (Auto) (1.2-3.4) K/uL Bond # (Auto) (0.11-0.59) K/uL Eos # (Auto) (0-0.5) K/uL Baso # (Auto) (0-0.2) K/uL POC Sodium (135-144) mEq/L Sodium (136-145) mmol/L POC Potassium (3.3-5.0) mEq/L Potassium (3.5-5.1) mmol/L POC Chloride (101-112) mEq/L Chloride (98-107) mmol/L Carbon Dioxide (21-32) mmol/L POC Total CO2 (24-31) mEq/l Anion Gap (3-11) POC Anion Gap (16-25) mmol/L POC BUN (7-18) mg/dl BUN (7-18) mg/dl Creatinine (0.6-1.2) mg/dl POC Creatinine (0.6-1.3) mg/dl Est Cr Clr Drug Dosing ml/min Est GFR ( Amer) Est GFR (Non-Af Amer) BUN/Creatinine Ratio (10-20) Glucose (70-99) mg/dl POC Glucose (other) (70-99) mg/dl Calcium (8.5-10.1) mg/dl POC Ioniz Calcium Patricio (1.12-1.32) mmol/l Magnesium (1.8-2.4) mg/dl Total Bilirubin (0.2-1) mg/dl AST (15-37) U/L ALT (12-78) U/L Alkaline Phosphatase (45-117) U/L Total Protein (6.4-8.2) gm/dl Albumin (3.4-5.0) gm/dl Globulin (2.5-4.0) gm/dl Albumin/Globulin Ratio (0.9-2) Lipase (73-393) U/L TSH (0.300-4.500) uIu/ml Urine Color Dark Yellow Urine Appearance Cloudy A (Clear) Urine pH 6.0 (4.5-7.5) Ur Specific [place] 1.020 (1.000-1.030) Urine Protein Trace H (Negative) Urine Glucose (UA) Negative (Negative) Urine Ketones 1+ H (Negative) Urine Blood Negative (Negative) Urine Nitrite Negative (Negative) Urine Bilirubin Negative (Negative) Urine Urobilinogen Negative (Negative) Ur Leukocyte Esterase Trace H (Negative) Urine WBC (Auto) 10-30 H (0-5) /hpf Urine RBC (Auto) 0-4 (0-4) /hpf U Hyaline Cast (Auto) 1-5 (0-5) /lpf U Epithel Cells (Auto) >30 H (0-5) /lpf Urine Bacteria (Auto) 1+ H (Negative) Ur Renal Epithelial Cell Not Reportable POC Ur Test NEG (NEG) Urine Opiates Screen (Neg) Ur Methadone, Qual (Neg) Urine Barbiturates (Neg) Ur Phencyclidine (PCP) (Neg) U Amphetamin/Meth Scrn (Neg) MDMA (Ecstasy) Screen (Neg) U Benzodiazepines Scrn (Neg) Ur Cocaine Metabolite (Neg) U Marijuana (THC) Screen (Neg) Ethyl Alcohol mg/dL < 3.0 (0-3) mg/dl 08/09/18 Range/Units 21:15 WBC (4.8-10.8) K/uL RBC (4.2-5.4) M/uL Hgb (12.0-16.0) g/dL POC Hgb (12.0-16.0) g/dl Hct (37-47) % POC Hct (37-47) % MCV (80-100) fL MCH (25-34) pg MCHC (32-36) g/dL RDW Std Deviation (36.4-46.3) fL RDW Coeff of Nelson (11.5-14.5) % Plt Count (130-400) K/uL MPV (7.4-10.4) fL Immature Gran % (Auto) % Neut % (Auto) % Lymph % (Auto) % Bond % (Auto) % Eos % (Auto) % Baso % (Auto) % Immature Gran # (Auto) (0.00-0.02) K/uL Neut # (Auto) (1.4-6.5) K/uL Lymph # (Auto) (1.2-3.4) K/uL Bond # (Auto) (0.11-0.59) K/uL Eos # (Auto) (0-0.5) K/uL Baso # (Auto) (0-0.2) K/uL POC Sodium (135-144) mEq/L Sodium (136-145) mmol/L POC Potassium (3.3-5.0) mEq/L Potassium (3.5-5.1) mmol/L POC Chloride (101-112) mEq/L Chloride (98-107) mmol/L Carbon Dioxide (21-32) mmol/L POC Total CO2 (24-31) mEq/l Anion Gap (3-11) POC Anion Gap (16-25) mmol/L POC BUN (7-18) mg/dl BUN (7-18) mg/dl Creatinine (0.6-1.2) mg/dl POC Creatinine (0.6-1.3) mg/dl Est Cr Clr Drug Dosing ml/min Est GFR ( Amer) Est GFR (Non-Af Amer) BUN/Creatinine Ratio (10-20) Glucose (70-99) mg/dl POC Glucose (other) (70-99) mg/dl Calcium (8.5-10.1) mg/dl POC Ioniz Calcium Patricio (1.12-1.32) mmol/l Magnesium (1.8-2.4) mg/dl Total Bilirubin (0.2-1) mg/dl AST (15-37) U/L ALT (12-78) U/L Alkaline Phosphatase (45-117) U/L Total Protein (6.4-8.2) gm/dl Albumin (3.4-5.0) gm/dl Globulin (2.5-4.0) gm/dl Albumin/Globulin Ratio (0.9-2) Lipase (73-393) U/L TSH (0.300-4.500) uIu/ml Urine Color Urine Appearance (Clear) Urine pH (4.5-7.5) Ur Specific [place] (1.000-1.030) Urine Protein (Negative) Urine Glucose (UA) (Negative) Urine Ketones (Negative) Urine Blood (Negative) Urine Nitrite (Negative) Urine Bilirubin (Negative) Urine Urobilinogen (Negative) Ur Leukocyte Esterase (Negative) Urine WBC (Auto) (0-5) /hpf Urine RBC (Auto) (0-4) /hpf U Hyaline Cast (Auto) (0-5) /lpf U Epithel Cells (Auto) (0-5) /lpf Urine Bacteria (Auto) (Negative) Ur Renal Epithelial Cell POC Ur Test (NEG) Urine Opiates Screen Pos H (Neg) Ur Methadone, Qual Neg (Neg) Urine Barbiturates Neg (Neg) Ur Phencyclidine (PCP) Neg (Neg) U Amphetamin/Meth Scrn Neg (Neg) MDMA (Ecstasy) Screen Neg (Neg) U Benzodiazepines Scrn Pos H (Neg) Ur Cocaine Metabolite Neg (Neg) U Marijuana (THC) Screen Neg (Neg) Ethyl Alcohol mg/dL (0-3) mg/dl Imaging Data Radiologist's Impression: Radiology results as stated below per my review and the radiologist's interpretation: CHEST CTA for PULMONARY ARTERIES CT DOSE: 519.89 mGy.cm HISTORY: pleuritic chest pain hypotensive recent surg TECHNIQUE: Multiaxial CT images of the chest were performed following the intravenous administration of contrast to evaluate the pulmonary arteries. Maximal intensity projection images were also obtained. A dose lowering technique was utilized adhering to the principles of ALARA. COMPARISON STUDY: Chest CTA 02/04/2016. FINDINGS: There is extensive posterior spinal fusion throughout the majority of the thoracic spine with pedicle screws and rods. The hardware appears intact. This results in mild artifact throughout the pulmonary arteries. However, no definite filling defects within the pulmonary arteries to suggest pulmonary embolus. Normal caliber thoracic aorta with no evidence for dissection. Trace bilateral pleural effusions. The heart is normal in size. No pericardial effusion. Normal esophagus. No mediastinal or hilar lymphadenopathy. Bilateral breast implants are again noted. No pneumothorax. The central airways are paten t. Mild dependent changes seen within the lung bases posteriorly. Otherwise, the lungs are clear. Small focal right perihilar area of air trapping is noted. IMPRESSION: 1. No evidence for pulmonary embolus with limitations as described above. 2. Extensive posterior spinal fusion throughout the majority of the thoracic spine. The hardware appears intact. 3. Trace bilateral pleural effusions. Electronically signed by: Jacky Howe M.D. 08/09/2018 9:52 PM ABDOMEN AND PELVIS CT WITH IV CONTRAST CT DOSE: HISTORY: periumbilical abd pain w/ fevers TECHNIQUE: Multiaxial CT images of the abdomen and pelvis were performed following the use of intravenous contrast. A dose lowering technique was utilized adhering to the principles of ALARA. COMPARISON STUDY: Abdomen and pelvis CT 08/26/2013. FINDINGS: Mild dependent changes and trace bilateral pleural effusions are noted at the lung bases. There are bilateral breast implants. No pneumoperitoneum. No pneumatosis. Extensive posterior spinal fusion seen within the thoracic and upp er lumbar spine. The visualized hardware appears intact. The liver, spleen, gallbladder, pancreas, and adrenal glands are unremarkable. A few subcentimeter bilateral renal hypodense lesions. These are generally too small to characterize but statistically represent cysts. No hydronephrosis. Metallic artifact from the spinal fusion hardware results in suboptimal evaluation of the abdominal structures. Trace pericholecystic fluid. No gallbladder wall thickening. This could be due to overhydration. No retroperitoneal lymphadenopathy. An intrauterine device is in good position. The bladder and ovaries are unremarkable. No evidence for bowel obstruction. Moderate well-formed stool within the colon. The appendix is fluid-filled and demonstrates a thickened wall with adjacent periappendiceal fat stranding. Therefore, this is consistent with acute appendicitis. The appendix measures up to 1 cm diameter. No evidence for a periappendiceal abscess or perforation at this time. IMPRESSION: 1. Acute appendicitis. 2. Trace bilateral pleural effusions and trace pericholecystic fluid. This may be due to overhydration. No gallbladder wall thickening. Electronically signed by: Jacky Howe M.D. 08/09/2018 9:57 PM MDM Narrative Patient is a 37-year-old female presents the ER for abdominal pain. On exam she does appear to be intoxicated. She falls asleep quickly. She was slightly hypotensive but this was when she was sleeping. Systolics dipped down to the 70s. Labs were obtained and showed no significant leukocytosis or anemia. BMP with mild hyponatremia. Bilirubin LFTs TSH and lipase is unremarkable. was negative. UA was contaminated. Tox was obtained. Alcohol was negative. CT abdomen pelvis shows appendicitis. I did CT the chest that she had pleuritic pain and was hypotensive. Discussed with general surgery patient was admitted for acute appendicitis. Was given 2 L IV fluids while in the ER. Impression & Plan Appendicitis Discharge Plan Visit Data *Final* Discharge Date/Time: 08/09/18 22:54 Chief Complaint: Abdominal Pain Stated Complaint: ABD PAIN, FEVER, HEADACHE ED Provider: Mario Kaminski Discharge Problem: Appendicitis Patient Disposition: Admitted As Inpatient Discharge Instructions Interventions: ED Discharge Assessment Last Done: 08/09/18 22:54 Discharge Problem: Appendicitis Qualifiers: Appendicitis type: unspecified Qualified Code(s): K37 - Unspecified appendicitis The scribe's documentation has been prepared under my direction and personally reviewed by me in its entirety. I confirm that the note above accurately reflects all work, treatment, procedures, and medical decision making performed by me.
[2018-08-10] MEDS ORDERED: PROPOFOL IV EMULSION 10 MG/ML 20 ML VIAL IV ONE (01:15)
[2018-08-10] MEDS ORDERED: ROCURONIUM BROMIDE 10 MG/ML 5 ML VIAL ONE (01:16)
[2018-08-10] MEDS ORDERED: NEOSTIGMINE METHYLSULFATE 5 MG/5 ML SYR ONE (01:25)
[2018-08-10] MEDS ORDERED: GLYCOPYRROLATE 0.2 MG/ML VIAL ONE (01:25)
--- NOTE | 2018-08-10 01:42 | Operative Report ---
Post Operative Report Pre & Post Diagnosis Operation Date: 08/09/18 22:30 Pre-Op Diagnosis: Acute appendicitis. Post-Op Diagnosis: Acute appendicitis. ruptured, abscess Procedure Operation Date: 08/09/18 22:30 Actual Procedures p Laparoscopic Appendectomy converted to open. - Lucas Saba MD, FACS drainage of abscess Surgeon Lucas Saba MD, FACS [employer] nurses Estimated Blood Loss 20 Findings Consistent with Post-Op Diagnosis Specimens appendix Description of Procedure see dictated note I attest to the content of the Intraoperative Record and any orders documented therein. Any exceptions are noted below.
[2018-08-10] MEDS ORDERED: ACETAMINOPHEN 1,000 MG/100 ML VIAL IV ONE (01:45)
[2018-08-10] MEDS ORDERED: PROMETHAZINE HCL 25 MG in SODIUM CHLORIDE 0.9% 50 ML IV PRN (01:49)
[2018-08-10] MEDS ORDERED: PIPERACILL/TAZOBAC CONSULT ACTIVE PRN (01:49)
[2018-08-10] MEDS ORDERED: ONDANSETRON INJ 2 MG/ML 2 ML VIAL IV PRN (01:49)
[2018-08-10] MEDS ORDERED: OXYCODONE HCL IR 5 MG TAB (IMMEDIATE RELEASE) PO PRN ×2 (01:52→05:02)
[2018-08-10] MEDS ORDERED: HYDROmorphone INJ 2 MG/ML SYR/VIAL IV PRN (01:52)
[2018-08-10] MEDS ORDERED: ONDANSETRON INJ 2 MG/ML 2 ML VIAL ONE (01:56)
[2018-08-10] MEDS ORDERED: ACETAMINOPHEN 1,000 MG/100 ML VIAL IV PRN (02:05)
[2018-08-10] MEDS ORDERED: ACETAMINOPHEN 1000 MG/100 ML IV IV ONE (02:11)
--- NOTE | 2018-08-10 02:13 | Anesthesiology Progress Note ---
Date of Service August 10, 2018 Anesthesia Post Procedure Vital Signs Vital Signs: Temp Pulse Pulse Resp BP BP Pulse Ox 08/09/18 22:51 70 18 95/72 L 100 08/09/18 21:58 70 18 92/55 L 100 08/09/18 20:37 68 16 93/51 L 96 08/09/18 20:33 96 08/09/18 19:29 37.1 C 93 H 16 81/47 L 116 H Pain Intensity Lower Abdomen: Pain Intensity: 6 Transfer of Care Handoff Completed per policy Notes Mental Status: alert / awake / arousable Patient Amnestic to Procedure: Yes Nausea / Vomiting: adequately controlled Pain: adequately controlled Airway Patency, RR, SpO2: stable & adequate BP & HR: stable & adequate Hydration State: stable & adequate Anesthetic Complications: no major complications apparent and Pt Satisfied with anesthetic care
[2018-08-10] MEDS ORDERED: HYDROmorphone INJ 0.5 MG/0.5 ML SYR ONE (02:30)
[2018-08-10 04:07] LABS: Basophils # (auto) 0.01 K/uL (0-0.2); Basophils % (auto) 0.1 %; Eosinophils # (auto) 0.07 K/uL (0-0.5); Eosinophils % (auto) 0.8 %; Hematocrit (blood only) 37.4 % (37-47); Hemoglobin 12.7 g/dL (12.0-16.0); Immature Granulocytes # (auto) 0.01 K/uL (0.00-0.02); Immature Granulocytes % (auto) 0.1 %; Lymphocytes # (auto) 1.36 K/uL (1.2-3.4); Lymphocytes % (auto) 15.4 %; Mean Corpuscular Volume 88.6 fL (80-100); Mean Platelet Volume 9.5 fL (7.4-10.4); Monocytes % (auto) 6.8 %; Neutrophils # (auto) 6.78 K/uL (1.4-6.5); Neutrophils % (auto) 76.8 %; Platelet Count 243 K/uL (130-400); RDW Coefficient of Variation 13.6 % (11.5-14.5); RDW Standard Deviation 44.7 fL (36.4-46.3); Red Blood Count 4.22 M/uL (4.2-5.4); White Blood Count 8.83 K/uL (4.8-10.8)
--- NOTE | 2018-08-10 04:22 | Operative Report ---
DATE OF OPERATION: 08/10/2018 NAME OF OPERATION: Laparoscopy with open appendectomy and drainage of periappendiceal abscess. STAFF SURGEON: Lucas Saba MD ANESTHESIA: General. DESCRIPTION OF PROCEDURE: The patient was brought in the operating room and placed on the operating table in supine position. Pneumatic stockings, orogastric tube were placed. Her abdomen was prepped and draped in usual fashion. 0.5% plain Marcaine was used to anesthetize all incisions. Incision was made above the umbilicus, carrying dissection down to the fascia, placing a Veress needle producing pneumoperitoneum. An 11 mm port was placed at this level, and then under visualization, a 5 mm port placed suprapubically and a 12 mm port placed in the left lower quadrant. On dissection, I was unable to identify the base of the appendix. I was able to identify what appeared to be an area of abscess in the right lower quadrant with cloudy fluid in the pelvis. The fluid was aspirated and irrigated and then I attempted to dissect the appendix free. On CAT scan, it appeared to be retrocecal. There was severe induration and I was concerned the cecum or ileum would be injured trying to dissect the indurated tissue. Therefore, incision was made transversely in the right lower quadrant carrying dissection down into the right lower quadrant. Initially what I felt was the appendix was just indurated cecal tissue, but the appendix was severely adherent to the retroperitoneum and the only way I was able to identify was by palpation and then gradually was able to dissect it free transecting the base first, ligating it using 0 chromic suture and imbricated using 0 chromic suture, then gradually transecting the mesoappendix in segments ligating it using 2-0 silk suture and 0 chromic suture. The appendix was removed. The right lower quadrant irrigated as well as the pelvis with saline solution. Then, a 15 round Edgardo-Ferguson drain placed through a separate stab incision into the right lower quadrant and pelvis, secured using 3-0 nylon suture. At this point, the posterior fascia and peritoneum were reapproximated using #1 chromic suture. The site irrigated again and then the anterior fascia reapproximated using #1 PDS suture. A quarter-inch Edith drain placed into the subcutaneous space and secured to the skin using 4-0 nylon suture. The skin was loosely reapproximated using subcuticular interrupted Monocryl and then some spaced Steri-Strips. The umbilical fascia and left lower quadrant fascia closed using 0 Vicryl suture. The incisions were loosely reapproximated using subcuticular 4-0 Monocryl in interrupted fashion and then Steri-Strips were applied. I used 5-0 Prolene for the umbilical skin. Dressings applied and the patient transferred to recovery room in stable condition. I attest to the content of the Intraoperative Record and any orders documented therein. Any exception s are noted below.
[2018-08-10 04:23] LABS: BUN Creatinine Ratio 16.7 (10-20); Calcium 8.1 mg/dl (8.5-10.1); Creatinine Clr Calc Pharmacy 105.8 ml/min; Est GFR (African American) 122.3; Est GFR (Non-African American) 105.5; Magnesium 1.9 mg/dl (1.8-2.4); Potassium 3.8 mmol/L (3.5-5.1)
[2018-08-10] MEDS: PIPERACILLIN/TAZOBACTAM 3.375 GM in DEXTROSE 5% 100 ML IV SCH ×3 (04:55→20:37)
--- NOTE | 2018-08-10 04:59 | Hospitalist Consultation ---
Date of Consultation August 10, 2018 Assessment & Plan (1) Ruptured appendix: Final Assessment and Recommendations as follows : Appendiceal abscess secondary to ruptured appendix Status post emergent surgery Patient not septic. Pain uncontrolled as per patient. Patient used to high doses of narcotics given chronic back pain from scoliosis surgery. She claims her back pain is always a 12/10. mood disorder, stable hypothyroidism, euthyroid as of yesterday's TSH chronic idiopathic constipation on lubiprostone, patient presented with diarrhea symptoms past tobacco abuse Agree with Zosyn. Continue home dose of Oxycodone 30 mg IR every 4 hours as needed as per patient request. (Patient clarifies that she does not take extended release morphine documented in home med profile.) judicious IV narcotic use. Toradol as needed. Hold lubiprostone for diarrhea, check stool C. difficile if patient with persistent diarrhea symptoms DVT prophylaxis SCDs Thank you very much for this consultation. Dr. Arora will follow patient's progress. History of Present Illness Reason for Consultation: Medical management Requesting Physician: Dr. Saba Attending Physician: Lucas Saba MD, FACS History of Present Illness PCP: Dr. Aviles CC : abdominal pain History obtained from patient and records. Medical history significant for mood disorder, hypothyroidism, chronic back pain status post scoliosis surgery, chronic idiopathic constipation on lubiprostone, past tobacco abuse. Recent confinement November 2014 for viral illness. 3 days history of achy lower abdominal pain starting from the right side and crossing over, going to the back, loose stools, fever, chills, achy headache. At the ER, patient received IV Zosyn for acute appendicitis. Patient underwent emergent open appendectomy and drainage of periappendiceal abscess. Patient currently complaining of unbearable postop abdominal pain. Medical History as above Surgical History : D&C, breast biopsy, cervical procedures, breast augmentation, nasal endoscopy, back surgery Family History : Thyroid cancer, diabetes, heart disease Personal/Social history : Past tobacco abuse, occasional EtOH intake, disabled Allergies Allergy/AdvReac Type Severity Reaction Status Date / Time cefixime Allergy Severe ANAPHYLAXIS Verified 08/09/18 22:18 erythromycin base Allergy Severe HIVES Verified 08/09/18 22:18 sodium benzoate Allergy Severe ANAPHYLAXIS Verified 08/09/18 22:19 Sulfa (Sulfonamide Allergy Intermediate ITCHY Verified 08/09/18 22:18 Antibiotics) procaine AdvReac Severe RAPID Verified 08/09/18 22:18 HEART BEAT Home Medications Home Medications Medication Instructions Recorded Confirmed Type acetaminophen [Tylenol] 795 mg PO Q6H PRN 03/11/18 08/09/18 History duloxetine 60 mg PO QAM 03/11/18 08/09/18 History levonorgestrel [Mirena] 1 applic INTRAUTERINE UD 03/11/18 08/09/18 History rizatriptan 10 mg PO DAILY PRN 03/11/18 08/09/18 History topiramate 75 mg PO BID 03/11/18 08/09/18 History trazodone 300 mg PO HS 03/11/18 08/09/18 History amoxapine 25 mg PO QAM 08/09/18 08/09/18 History lubiprostone [Amitiza] 8 mcg PO BIDM 08/09/18 08/09/18 History morphine 15 mg PO BID PRN 08/09/18 08/09/18 History ondansetron 4 mg TRANSLINGUAL Q8H PRN 08/09/18 08/09/18 History oxycodone 30 mg PO Q4H PRN 08/09/18 08/09/18 History promethazine 25 mg PO Q6H PRN 08/09/18 08/09/18 History tizanidine 6 mg PO Q6H PRN 08/09/18 08/09/18 History Patient History Medical History Chronic constipation (Chronic) Migraine (Chronic) Chronic back pain Depression (Chronic) Anxiety (Chronic) Neck pain (Chronic) Surgical History History of spinal surgery (Chronic) 02/17/2018 - Arthrodesis spine posterior thoracic. Posterior spinal segmental instrumentation 7 to 12 PSF Social History Preferred Language: Icelandic Communication Ability: Effective Fixed Wing Pilot Required: No Beliefs That Will Affect Care: None Current Living Situation: Alone Other Information That Helps Us Care for You: No Feels Safe at Home: Yes Safety Concerns: Feels Safe At This Time Smoking Status: Unknown if ever smoked Hx Alcohol Use: No Hx Substance Use: Yes substance use type: painkillers Last Used Substance: Unknown Review of Systems Review of Systems: As per HPI, all 10 systems reviewed, all other ROS negative Physical Exam Physical Exam: GENERAL: Slightly uncomfortable, no respiratory distress SKIN: Normal color, warm HEENT: [place] palpebral conjunctivae, no ptosis, dry buccal mucosa NECK : Supple, no tenderness CHEST : CTA, no tenderness HEART : RRR, no obvious murmurs ABDOMEN: Dressing over anterior abdomen, distention, hypogastric tenderness EXTREMITIES : No LE swelling/tenderness, no other conspicuous deformities noted NEUROLOGIC : Coherent, no facial asymmetry, no other gross focality Results & Data Vital Signs (Past 12 Hours) Vital Signs Temp Pulse Pulse Pulse Resp BP BP 08/10/18 04:34 36.9 C 92 H 18 126/83 08/10/18 02:51 36.3 C L 73 16 111/69 08/10/18 02:50 70 12 08/10/18 02:45 73 15 115/79 08/10/18 02:41 72 16 107/70 08/10/18 02:40 65 15 08/10/18 02:36 70 14 108/73 08/10/18 02:35 68 16 08/10/18 02:30 71 13 113/75 08/10/18 02:20 72 18 114/75 08/10/18 02:16 68 13 106/71 08/10/18 02:15 66 12 08/10/18 02:10 71 13 115/76 08/10/18 02:07 78 15 113/72 08/10/18 02:04 35.6 C L 83 17 113/72 08/09/18 22:51 70 18 95/72 L 08/09/18 21:58 70 18 92/55 L 08/09/18 20:37 68 16 93/51 L 08/09/18 20:33 08/09/18 19:29 37.1 C 93 H 16 81/47 L Pulse Ox 08/10/18 04:34 95 08/10/18 02:51 98 08/10/18 02:50 99 08/10/18 02:45 100 08/10/18 02:41 100 08/10/18 02:40 99 08/10/18 02:36 100 08/10/18 02:35 99 08/10/18 02:30 98 08/10/18 02:20 100 08/10/18 02:16 100 08/10/18 02:15 100 08/10/18 02:10 100 08/10/18 02:07 100 08/10/18 02:04 100 08/09/18 22:51 100 08/09/18 21:58 100 08/09/18 20:37 96 08/09/18 20:33 96 08/09/18 19:29 116 H Laboratory Results Laboratory Results WBC 8.83 K/uL (4.8-10.8) 08/10/18 03:49 RBC 4.22 M/uL (4.2-5.4) 08/10/18 03:49 Hgb 12.7 g/dL (12.0-16.0) 08/10/18 03:49 POC Hgb 12.2 g/dl (12.0-16.0) 08/09/18 20:54 Hct 37.4 % (37-47) 08/10/18 03:49 POC Hct 36 % (37-47) L 08/09/18 20:54 MCV 88.6 fL (80-100) 08/10/18 03:49 MCH 30.1 pg (25-34) 08/10/18 03:49 MCHC 34.0 g/dL (32-36) 08/10/18 03:49 RDW Std Deviation 44.7 fL (36.4-46.3) 08/10/18 03:49 RDW Coeff of [place] 13.6 % (11.5-14.5) 08/10/18 03:49 Plt Count 243 K/uL (130-400) 08/10/18 03:49 MPV 9.5 fL (7.4-10.4) 08/10/18 03:49 Immature Gran % (Auto) 0.1 % 08/10/18 03:49 Neut % (Auto) 76.8 % 08/10/18 03:49 Lymph % (Auto) 15.4 % 08/10/18 03:49 [place] % (Auto) 6.8 % 08/10/18 03:49 Eos % (Auto) 0.8 % 08/10/18 03:49 Baso % (Auto) 0.1 % 08/10/18 03:49 Immature Gran # (Auto) 0.01 K/uL (0.00-0.02) 08/10/18 03:49 Neut # (Auto) 6.78 K/uL (1.4-6.5) H 08/10/18 03:49 Lymph # (Auto) 1.36 K/uL (1.2-3.4) 08/10/18 03:49 [place] # (Auto) 0.60 K/uL (0.11-0.59) H 08/10/18 03:49 Eos # (Auto) 0.07 K/uL (0-0.5) 08/10/18 03:49 Baso # (Auto) 0.01 K/uL (0-0.2) 08/10/18 03:49 POC Sodium 133 mEq/L (135-144) L 08/09/18 20:54 Sodium 137 mmol/L (136-145) 08/10/18 03:49 POC Potassium 3.5 mEq/L (3.3-5.0) 08/09/18 20:54 Potassium 3.8 mmol/L (3.5-5.1) 08/10/18 03:49 POC Chloride 99 mEq/L (101-112) L 08/09/18 20:54 Chloride 108 mmol/L (98-107) H 08/10/18 03:49 Carbon Dioxide 21 mmol/L (21-32) 08/10/18 03:49 POC Total CO2 20 mEq/l (24-31) L 08/09/18 20:54 Anion Gap 8.0 (3-11) 08/10/18 03:49 POC Anion Gap 19.0 mmol/L (16-25) 08/09/18 20:54 POC BUN 17 mg/dl (7-18) 08/09/18 20:54 BUN 12 mg/dl (7-18) 08/10/18 03:49 Creatinine 0.72 mg/dl (0.6-1.2) 08/10/18 03:49 POC Creatinine 0.9 mg/dl (0.6-1.3) 08/09/18 20:54 Est Cr Clr Drug Dosing 105.8 ml/min 08/10/18 03:49 Est GFR ( Amer) 122.3 08/10/18 03:49 Est GFR (Non-Af Amer) 105.5 08/10/18 03:49 BUN/Creatinine Ratio 16.7 (10-20) 08/10/18 03:49 Glucose 97 mg/dl (70-99) 08/10/18 03:49 POC Glucose (other) 118 mg/dl (70-99) H 08/09/18 20:54 Lactate 0.9 mmol/L (0.4-2.0) 08/10/18 03:49 Calcium 8.1 mg/dl (8.5-10.1) L 08/10/18 03:49 POC Ioniz Calcium Patricio 1.17 mmol/l (1.12-1.32) 08/09/18 20:54 Magnesium 1.9 mg/dl (1.8-2.4) 08/10/18 03:49 Total Bilirubin 0.8 mg/dl (0.2-1) 08/09/18 20:16 AST 8 U/L (15-37) L 08/09/18 20:16 ALT 15 U/L (12-78) 08/09/18 20:16 Alkaline Phosphatase 106 U/L (45-117) 08/09/18 20:16 Total Protein 6.3 gm/dl (6.4-8.2) L 08/09/18 20:16 Albumin 3.2 gm/dl (3.4-5.0) L 08/09/18 20:16 Globulin 3.1 gm/dl (2.5-4.0) 08/09/18 20:16 Albumin/Globulin Ratio 1.0 (0.9-2) 08/09/18 20:16 Lipase 39 U/L (73-393) L 08/09/18 20:16 TSH 1.600 uIu/ml (0.300-4.500) 08/09/18 20:16 Urine Color Dark Yellow 08/09/18 21:15 Urine Appearance Cloudy (Clear) A 08/09/18 21:15 Urine pH 6.0 (4.5-7.5) 08/09/18 21:15 Ur Specific [place] 1.020 (1.000-1.030) 08/09/18 21:15 Urine Protein Trace (Negative) H 08/09/18 21:15 Urine Glucose (UA) Negative (Negative) 08/09/18 21:15 Urine Ketones 1+ (Negative) H 08/09/18 21:15 Urine Blood Negative (Negative) 08/09/18 21:15 Urine Nitrite Negative (Negative) 08/09/18 21:15 Urine Bilirubin Negative (Negative) 08/09/18 21:15 Urine Urobilinogen Negative (Negative) 08/09/18 21:15 Ur Leukocyte Esterase Trace (Negative) H 08/09/18 21:15 Urine WBC (Auto) 10-30 /hpf (0-5) H 08/09/18 21:15 Urine RBC (Auto) 0-4 /hpf (0-4) 08/09/18 21:15 U Hyaline Cast (Auto) 1-5 /lpf (0-5) 08/09/18 21:15 U Epithel Cells (Auto) >30 /lpf (0-5) H 08/09/18 21:15 Urine Bacteria (Auto) 1+ (Negative) H 08/09/18 21:15 Ur Renal Epithelial Cell Not Reportable 08/09/18 21:15 POC Ur Test NEG (NEG) 08/09/18 21:15 Urine Opiates Screen Pos (Neg) H 08/09/18 21:15 Ur Methadone, Qual Neg (Neg) 08/09/18 21:15 Urine Barbiturates Neg (Neg) 08/09/18 21:15 Ur Phencyclidine (PCP) Neg (Neg) 08/09/18 21:15 U Amphetamin/Meth Scrn Neg (Neg) 08/09/18 21:15 MDMA (Ecstasy) Screen Neg (Neg) 08/09/18 21:15 U Benzodiazepines Scrn Pos (Neg) H 08/09/18 21:15 Ur Cocaine Metabolite Neg (Neg) 08/09/18 21:15 U Marijuana (THC) Screen Neg (Neg) 08/09/18 21:15 Ethyl Alcohol mg/dL < 3.0 mg/dl (0-3) 08/09/18 20:55 Diagnostic Findings CTA: 1. No evidence for pulmonary embolus with limitations as described above. 2. Extensive posterior spinal fusion throughout the majority of the thoracic spine. The hardware appears intact. 3. Trace bilateral pleural effusions. CT abdomen pelvis: 1. Acute appendicitis. 2. Trace bilateral pleural effusions and trace pericholecystic fluid. This may be due to overhydration. No gallbladder wall thickening.
[2018-08-10] MEDS ORDERED: KETOROLAC TROMETHAMINE 15 MG/ML VIAL IV PRN (05:00)
[2018-08-10] MEDS: NSS + 20MEQ KCL 20 MEQ/1,000 ML BAG IV SCH (05:05)
[2018-08-10] MEDS ORDERED: NSS + 20MEQ KCL 20 MEQ/1,000 ML BAG IV ONE (05:10)
--- NOTE | 2018-08-10 06:02 | Progress Note ---
Date of Service August 10, 2018 Assessment & Plan (1) Ruptured appendix: pt had ruptured appendix w/ contained abscess has subcu zehra drain and Santiago drain in RLQ will need 2-3 days IV atbx and pain control may become difficult- will discuss AIRLINE PILOT FLIGHT INSTRUCTOR with her which may help Subjective pt sleeping now- vitals are stable Physical Exam Physical Exam: resting comfortably no acute chgs drains, dressings intact Results & Data Vital Signs (Past 12 Hours) Vital Signs Temp Pulse Pulse Pulse Resp BP BP 08/10/18 05:50 36.6 C 76 14 110/76 08/10/18 04:34 36.9 C 92 H 18 126/83 08/10/18 02:51 36.3 C L 73 16 111/69 08/10/18 02:50 70 12 08/10/18 02:45 73 15 115/79 08/10/18 02:41 72 16 107/70 08/10/18 02:40 65 15 08/10/18 02:36 70 14 108/73 08/10/18 02:35 68 16 08/10/18 02:30 71 13 113/75 08/10/18 02:20 72 18 114/75 08/10/18 02:16 68 13 106/71 08/10/18 02:15 66 12 08/10/18 02:10 71 13 115/76 08/10/18 02:07 78 15 113/72 08/10/18 02:04 35.6 C L 83 17 113/72 08/09/18 22:51 70 18 95/72 L 08/09/18 21:58 70 18 92/55 L 08/09/18 20:37 68 16 93/51 L 08/09/18 20:33 08/09/18 19:29 37.1 C 93 H 16 81/47 L Pulse Ox 08/10/18 05:50 96 08/10/18 04:34 95 08/10/18 02:51 98 08/10/18 02:50 99 08/10/18 02:45 100 08/10/18 02:41 100 08/10/18 02:40 99 08/10/18 02:36 100 08/10/18 02:35 99 08/10/18 02:30 98 08/10/18 02:20 100 08/10/18 02:16 100 08/10/18 02:15 100 08/10/18 02:10 100 08/10/18 02:07 100 08/10/18 02:04 100 08/09/18 22:51 100 08/09/18 21:58 100 08/09/18 20:37 96 08/09/18 20:33 96 08/09/18 19:29 116 H
[2018-08-10 06:38] LABS: INR 1.2 (0.9-1.1); Prothrombin Time 12.1 Seconds (9.0-12.0)
[2018-08-10] MEDS ORDERED: NALOXONE HCL 0.4 MG/1 ML VIAL/CARP IV PRN (06:54)
[2018-08-10 07:23] LABS: Estimated Average Glucose 85 mg/dl; Hemoglobin A1C 4.6 % (4.5-5.6)
--- NOTE | 2018-08-10 07:59 | Anesthesiology Progress Note ---
Date of Service August 10, 2018 Anesthesia Post Procedure Vital Signs Vital Signs: Temp Pulse Pulse Pulse Resp BP BP 08/10/18 07:46 36.5 C 84 16 114/79 08/10/18 05:50 36.6 C 76 14 110/76 08/10/18 04:34 36.9 C 92 H 18 126/83 08/10/18 03:30 36.5 C 106 H 16 126/85 08/10/18 02:51 36.3 C L 73 16 111/69 08/10/18 02:50 70 12 08/10/18 02:45 73 15 115/79 08/10/18 02:41 72 16 107/70 08/10/18 02:40 65 15 08/10/18 02:36 70 14 108/73 08/10/18 02:35 68 16 08/10/18 02:30 71 13 113/75 08/10/18 02:20 72 18 114/75 08/10/18 02:16 68 13 106/71 08/10/18 02:15 66 12 08/10/18 02:10 71 13 115/76 08/10/18 02:07 78 15 113/72 08/10/18 02:04 35.6 C L 83 17 113/72 08/09/18 22:51 70 18 95/72 L 08/09/18 21:58 70 18 92/55 L 08/09/18 20:37 68 16 93/51 L 08/09/18 20:33 08/09/18 19:29 37.1 C 93 H 16 81/47 L Pulse Ox 08/10/18 07:46 99 08/10/18 05:50 96 08/10/18 04:34 95 08/10/18 03:30 97 08/10/18 02:51 98 08/10/18 02:50 99 08/10/18 02:45 100 08/10/18 02:41 100 08/10/18 02:40 99 08/10/18 02:36 100 08/10/18 02:35 99 08/10/18 02:30 98 08/10/18 02:20 100 08/10/18 02:16 100 08/10/18 02:15 100 08/10/18 02:10 100 08/10/18 02:07 100 08/10/18 02:04 100 08/09/18 22:51 100 08/09/18 21:58 100 08/09/18 20:37 96 08/09/18 20:33 96 08/09/18 19:29 116 H Notes Mental Status: alert / awake / arousable and participated in evaluation Nausea / Vomiting: adequately controlled Pain: adequately controlled Airway Patency, RR, SpO2: stable & adequate BP & HR: stable & adequate Hydration State: stable & adequate
[2018-08-10] MEDS: HYDROmorphone HCL 0.5MG/ML 50 ML CASSETTE IV PRN ×2 (08:25→17:05)
[2018-08-10] MEDS ORDERED: MoRPHine SULFATE CR 15 MG TABCR PO SCH (09:00)
[2018-08-10] MEDS: SODIUM CHLORIDE 0.9% 1000ML IV SCH ×2 (09:08→10:46)
[2018-08-10] MEDS: LUBIPROSTONE 8 MCG CAP PO SCH ×2 (09:10→16:02)
[2018-08-10] MEDS: DULOXETINE HCL 60 MG CAP PO SCH (09:10)
[2018-08-10] MEDS: TOPIRAMATE 50 MG TAB PO SCH ×2 (09:10→20:45)
[2018-08-10] MEDS: MAGNESIUM HYDROXIDE SUSP 30 ML UDC PO SCH ×2 (09:20→20:43)
[2018-08-10] MEDS: HEPARIN SOD 5,000 UNIT/0.5 ML VIAL SQ SCH ×2 (09:21→20:43)
--- NOTE | 2018-08-10 09:21 | Hospitalist Progress Note ---
Date of Service August 10, 2018 Assessment & Plan (1) Appendicitis: Post op day# 1 S/P Laparoscopic transitioned to open appendectomy for acute appendicitis by Dr Saba EBL# 20ml. ANA drain output# 45ml Post op abdominal pain not controlled by IV Dilaudid and surgery added Dilaudid PLANNING SUPERVISOR pump this morning with some improvement Pt afebrile, WBC: 8, no significant electrolyte abnormality -General surgery as primary -On Zosyn -Pain management per general surgery -Wound management per general surgery -DVT prophylaxis heparin SQ per surgery -Incentive spirometry -Hgb: 12.7 today was 12.3 pre-op (2) Dysuria: Pt with dysuria and urinary frequency this morning -Pending urine culture -On Zosyn as above for ruptured appendicitis (3) Chronic back pain: (4) Neck pain: Chronic neck and back pain -Home meds of oxycodone and morphine po are on hold as pt on Dilaudid PLANNING SUPERVISOR pump (5) Anxiety: (6) Depression: Stable -Continue home meds (7) Migraine: Denies CASTELLANO -Continue Topamax (8) Chronic constipation: -Amitiza continued DVT Prophylaxis -Heparin SQ Disposition per primary service Pt was seen and care coordinated with Dr Arora. See addendum Thank you for this consultation. We will follow the patient with you during their hospital stay. Attending Addendum: care coordinated with CLAUDETTE Tilley please refer to her notes for full details, I agree with her notes patient seen and examined, records reviewed by myself as well on exam, patient seen resting in bed, not in distress Reports pain on the surgical site about the same Reports mild discomfort on the right calf Denies chest pain, shortness of breath, nausea no other symptoms VS noted and reviewed oriented x2 , not in distress, speaks in sentences with no effort nor accessory muscle use normal rate, regular rhythm, no murmurs clear breath sounds bilaterally non distended, soft, nontender no bipedal edema, erythema, warmth no neuro deficits WBC 8.8 Hg 12.7 Crea 0.72 ASSESSMENT AND PLAN APPENDICITIS S/P APPENDECTOMY continue Zosyn IV on Dilaudid PLANNING SUPERVISOR for pain control RIGHT CALF PAIN Doppler US ordered to r/o DVT other diagnoses and plan of care as per CLAUDETTE Tilley notes R Ulysses BRIONES Subjective F/U Medical management s/p Appendectomy Pt seen and examined. Lying in bed. Reports abdominal pain was not controlled. This morning surgery added Dilaudid PLANNING SUPERVISOR pump and pt feels pain is starting to decrease. Denies nausea or vomiting. Reports throat a little sore, no dysphagia. Tolerated Jello this morning. No BM yet. Reports this morning had some dysuria and urinary frequency and urine culture has been collected. Chronic neck and b ack pain and denies any increased from baseline. Denies fever/chills, CASTELLANO, dizziness, syncope, vision changes, CP, SOB, cough, choking, paresthesias, extremity edema, hematuria. Review of Systems Review of Systems: All systems reviewed & are unremarkable except as noted in HPI & below Physical Exam Physical Exam: General: no acute distress, WDWN Head: normocephalic, atraumatic Eyes: conjunctiva non-injected, anicteric ENT: normal inspection external ears, nose, mucous membranes moist Neck: supple, trachea midline Lungs: clear, no respiratory distress, no wheezing/rhonchi/rales CV: RRR, no murmur, no pretibial edema Abd: +surgical dressings intact, +ANA drain in place, hypoactive BS, soft, + tenderness to faint palpation Ext: no cyanosis, no calf tenderness Neuro: A&O x 3, no focal deficits noted, normal affect Skin: warm, dry Results & Data Vital Signs (Past 12 Hours) Vital Signs Temp Pulse Pulse Pulse Resp BP BP 08/10/18 09:19 36.4 C L 78 18 109/73 08/10/18 07:46 36.5 C 84 16 114/79 08/10/18 05:50 36.6 C 76 14 110/76 08/10/18 04:34 36.9 C 92 H 18 126/83 08/10/18 03:30 36.5 C 106 H 16 126/85 08/10/18 02:51 36.3 C L 73 16 111/69 08/10/18 02:50 70 12 08/10/18 02:45 73 15 115/79 08/10/18 02:41 72 16 107/70 08/10/18 02:40 65 15 08/10/18 02:36 70 14 108/73 08/10/18 02:35 68 16 08/10/18 02:30 71 13 113/75 08/10/18 02:20 72 18 114/75 08/10/18 02:16 68 13 106/71 08/10/18 02:15 66 12 08/10/18 02:10 71 13 115/76 08/10/18 02:07 78 15 113/72 08/10/18 02:04 35.6 C L 83 17 113/72 08/09/18 22:51 70 18 95/72 L 08/09/18 21:58 70 18 92/55 L Pulse Ox 08/10/18 09:19 98 08/10/18 07:46 99 08/10/18 05:50 96 08/10/18 04:34 95 08/10/18 03:30 97 08/10/18 02:51 98 08/10/18 02:50 99 08/10/18 02:45 100 08/10/18 02:41 100 08/10/18 02:40 99 08/10/18 02:36 100 08/10/18 02:35 99 08/10/18 02:30 98 08/10/18 02:20 100 08/10/18 02:16 100 08/10/18 02:15 100 08/10/18 02:10 100 08/10/18 02:07 100 08/10/18 02:04 100 08/09/18 22:51 100 08/09/18 21:58 100 Laboratory Results Short CBC 08/09/18 08/10/18 Range/Units 20:16 03:49 WBC 11.32 H 8.83 (4.8-10.8) K/uL Hgb 12.3 12.7 (12.0-16.0) g/dL Hct 36.4 L 37.4 (37-47) % Plt Count 257 243 (130-400) K/uL BMP 08/09/18 08/10/18 20:16 03:49 Sodium 133 L 137 Potassium 3.5 3.8 Chloride 104 108 H Carbon Dioxide 25 21 BUN 17 12 Creatinine 0.98 0.72 Glucose 114 H 97 Calcium 8.2 L 8.1 L Liver Function 08/09/18 Range/Units 20:16 Total Bilirubin 0.8 (0.2-1) mg/dl AST 8 L (15-37) U/L ALT 15 (12-78) U/L Alkaline Phosphatase 106 (45-117) U/L Albumin 3.2 L (3.4-5.0) gm/dl Urine 08/09/18 Range/Units 21:15 Urine Color Dark Yellow Urine Appearance Cloudy A (Clear) Urine pH 6.0 (4.5-7.5) Ur Specific [place] 1.020 (1.000-1.030) Urine Protein Trace H (Negative) Urine Glucose (UA) Negative (Negative) (1) Appendicitis Appendicitis type: unspecified Qualified Code(s): K37 - Unspecified appendicitis
[2018-08-10] MEDS: TIZANIDINE HCL 4 MG TABLET PO SCH (17:08)
[2018-08-10] MEDS: OXYCODONE HCL IR 30 MG TAB (IMMEDIATE RELEASE) PO SCH ×2 (17:39→20:40)
[2018-08-10] MEDS: CALCIUM CARBONATE 500 MG CHEWABLE TAB PO PRN (20:42)
[2018-08-10] MEDS: TRAZODONE HCL 100 MG TAB PO SCH (20:43)
[2018-08-10] MEDS ORDERED: LACTATED RINGER'S 1,000 ML IV ONE (22:54)
[2018-08-10] MEDS ORDERED: MINERAL OIL 30 ML UDC PO ONE (23:28)
--- NOTE | 2018-08-10 23:28 | Progress Note ---
Date of Service August 10, 2018 Assessment & Plan (1) Ruptured appendix: hypotension is improving with stopping pacu nurse pump check H/H, lytes. Doubt bleeding discussed with her effects of narcotics and GI function assoc w/ ileus and possible need for NG if N/V occur also importance of walking 08/09 Ur C+S neg, todays pending Subjective hypotensive, awake alert Bp coming up Physical Exam Physical Exam: awake, alert- no distress abd- mild distention- has bowel sounds, no significant tenderness Results & Data Vital Signs (Past 12 Hours) Vital Signs Temp Pulse Resp BP BP Pulse Ox 08/10/18 23:07 36.5 C 62 16 82/44 L 99 08/10/18 22:51 74/40 L 08/10/18 22:43 36.7 C 66 14 73/48 L 90 08/10/18 19:42 36.9 C 83 14 121/80 98 08/10/18 15:05 37.2 C 94 H 22 128/88 98 08/10/18 12:35 37 C 79 18 126/84 96 08/10/18 11:29 36.8 C 87 20 128/85 97
[2018-08-10 23:35] LABS: Hemoglobin 11.7 g/dL (12.0-16.0)
[2018-08-10 23:57] LABS: Albumin Level 2.4 gm/dl (3.4-5.0); BUN Creatinine Ratio 11.2 (10-20); Calcium 7.7 mg/dl (8.5-10.1); Creatinine Clr Calc Pharmacy 104.4 ml/min; Est GFR (African American) 120.2; Est GFR (Non-African American) 103.7; Magnesium 2.1 mg/dl (1.8-2.4); Potassium 3.7 mmol/L (3.5-5.1)
[2018-08-11] LABS: Albumin Globulin Ratio 0.8 (0.9-2); Bilirubin,Total 0.7 mg/dl (0.2-1); Globulin 2.9 gm/dl (2.5-4.0); Phosphorus 2.9 mg/dl (2.5-4.9); Total Protein 5.3 gm/dl (6.4-8.2)
[2018-08-11] MEDS: TIZANIDINE HCL 4 MG TABLET PO SCH ×4 (00:14→17:52)
[2018-08-11] MEDS: OXYCODONE HCL IR 30 MG TAB (IMMEDIATE RELEASE) PO SCH ×6 (01:08→21:24)
[2018-08-11] MEDS: CALCIUM CARBONATE 500 MG CHEWABLE TAB PO PRN (03:05)
[2018-08-11] MEDS: HYDROmorphone INJ 0.5 MG/0.5 ML SYR IV PRN ×2 (03:39→15:47)
[2018-08-11] MEDS: PROMETHAZINE HCL 12.5 MG in SODIUM CHLORIDE 0.9% 50 ML IV PRN (03:40)
[2018-08-11] MEDS: PIPERACILLIN/TAZOBACTAM 3.375 GM in DEXTROSE 5% 100 ML IV SCH ×3 (04:00→21:01)
[2018-08-11] MEDS: LORazepam 0.5 MG/1 ML VIAL IV PRN ×3 (04:37→22:23)
[2018-08-11] MEDS ORDERED: IOVERSOL 100ml IV PRN (04:38)
--- NOTE | 2018-08-11 06:15 | Progress Note ---
Date of Service August 11, 2018 Assessment & Plan (1) Ruptured appendix: major problem is bowel distention colon/ sm bowel with gas/ stool high requirement for narcotics. CT shows RLQ fluid collection 4x2 cm can't r/o abscess- not unusual with abd washout s/p ruptured appendix would cont atbx 2 weeks (IV here then po- likely Augmentin) then rescan 1-2 weeks. Too small for IR She also says she may sign out of hospital- I don't think this would be beneficial now- will also try some mag citrate at her request this am. Ask GI for suggestions in this difficult situation. Subjective pt more calm with ativan- see A/P Physical Exam Physical Exam: no acute changes- distention same Results & Data Vital Signs (Past 12 Hours) Vital Signs Temp Pulse Resp BP BP Pulse Ox 08/11/18 05:15 68 115/74 08/11/18 03:08 89 137/86 08/11/18 00:55 36.5 C 65 16 100/65 99 08/10/18 23:07 36.5 C 62 16 82/44 L 99 08/10/18 22:51 74/40 L 08/10/18 22:43 36.7 C 66 14 73/48 L 90 08/10/18 19:42 36.9 C 83 14 121/80 98
[2018-08-11] MEDS ORDERED: NSS + 20MEQ KCL 20 MEQ/1,000 ML BAG IV SCH (06:30)
[2018-08-11 07:01] LABS: Basophils # (auto) 0.01 K/uL (0-0.2); Basophils % (auto) 0.2 %; Eosinophils # (auto) 0.06 K/uL (0-0.5); Eosinophils % (auto) 0.9 %; Hematocrit (blood only) 33.9 % (37-47); Hemoglobin 11.3 g/dL (12.0-16.0); Immature Granulocytes # (auto) 0.01 K/uL (0.00-0.02); Immature Granulocytes % (auto) 0.2 %; Lymphocytes # (auto) 0.79 K/uL (1.2-3.4); Lymphocytes % (auto) 11.9 %; Mean Corpuscular Hgb Conc 33.3 g/dL (32-36); Mean Corpuscular Volume 88.5 fL (80-100); Mean Platelet Volume 9.6 fL (7.4-10.4); Monocytes # (auto) 0.52 K/uL (0.11-0.59); Monocytes % (auto) 7.9 %; Neutrophils # (auto) 5.23 K/uL (1.4-6.5); Neutrophils % (auto) 78.9 %; Platelet Count 263 K/uL (130-400); RDW Coefficient of Variation 13.3 % (11.5-14.5); RDW Standard Deviation 42.9 fL (36.4-46.3); Red Blood Count 3.83 M/uL (4.2-5.4); White Blood Count 6.62 K/uL (4.8-10.8)
--- NOTE | 2018-08-11 07:20 | CT Scan Report ---
CT OF THE ABDOMEN AND PELVIS WITH CONTRAST CLINICAL HISTORY: r/o free air and fluid collection. Status post appendectomy August 10, 2018. COMPARISON STUDY: CT of the abdomen and pelvis August 09, 2018. TECHNIQUE: Following IV administration of 94 mL of Optiray-320, axial images of the abdomen and pelvi s were obtained from the lung bases to the proximal femurs. Images were reviewed in the axial, sagitt al, and coronal planes. IV contrast was administered without complication. Automated exposure contro l was utilized for the study. A dose lowering technique was utilized adhering to the principles of A KEN. CT DOSE: 321.34 mGy.cm FINDINGS: There are small bilateral pleural effusions with bibasilar opacities suggestive of atelecta sis. Bilateral breast implants are noted. Thoracolumbar spine fusion hardware is noted. This limits e valuation of the upper abdomen given streak artifact. Mild gallbladder distention with trace perichol ecystic fluid is similar to CT of August 09, 2018. There is no biliary or pancreatic ductal dilatation. The spleen, adrenal glands, kidneys and pancreas are normal. There is no hydronephrosis. The bladder is distended and contains contrast from prior CT. Intrauterine device is in place. Moderate amount o f stool is noted within the colon. There is mild gaseous distention of small and large bowel. A right lower quadrant drain is in place status post interval appendectomy. It is made of a small peripheral ly enhancing fluid collection within the right paracolic gutter that measures 4 x 2.5 x 1.6 cm. There is adjacent infiltration and fluid. There is gas within the abdominal wall which is expected. There are no unexpected radiopaque foreign bodies. IMPRESSION: 1. Status post interval appendectomy. Small peripherally enhancing fluid collection within the right paracolic cutter that measures 4 x 2.5 x 1.6 cm. This is nonspecific in the early postoperative setti ng. A small abscess cannot be excluded. 2. Moderate amount of stool within the colon. Mild small and large bowel distention which favors an i leus. No evidence for a bowel obstruction. 3. No change in mild gallbladder distention with trace pericholecystic fluid. This could be correlate d with right upper quadrant pain. 4. Small bilateral pleural effusions with associated atelectasis. Electronically signed by: Zenon Drummond M.D. 08/11/2018 7:19 AM
[2018-08-11] MEDS ORDERED: MAGNESIUM CITRATE 296 ML/BTL PO ONE (08:00)
--- NOTE | 2018-08-11 08:56 | Gastrointestinal Consultation ---
Date of Consultation August 11, 2018 Assessment & Plan (1) Constipation: 37 year old female with history of chronic back pain on outpatient narcotics, chronic constipation on amitizia who presented though the ED w/ acute abdominal pain, nausea, vomiting CT evidence of acute appendicitis post-op day 2 of laparoscopic converted to open appendectomy now w/ generalized abd pain, nausea inability to pass stool but notes passing gas CT w/ evidence of ileus but w/o concern for obstruction - Will review imaging w/ attending and radiology - Daily KUB - NPO for bowel rest - Anti-emetics PRN - Limit narcotic analgesia - Consider NG tube placement if nausea persists or she developed vomiting - Pending review of CT would consider use of relistor - We had discussed if prolonged taper of outpatient narcotics is required can trial Movantik - Will update general surgery once able to review imaging as I was unable to load imaged on the floor. Thank you for allowing us to participate in the care of this patient. Please call with any acute changes, questions or concerns. Please see addendum below with additional recommendation from my supervising physician. Attg add: I interviewed and examined pt, reviewed chart and labs. Pt with h/o chronic narcotic use, chronic constipation on Amitiza/MOM, PRN enemas now s/p ruptured appy with mild abd distention and CT showing stool in collapsed rectum, descending colon, mild distention of transverse colon, per-cecal inflamm change. On exam, she is mildly distended and tympanic, with hypoactive BS. Labs reviewed - K 3.7, Mag 2.1. She continues on narcotics, and has been on Amitiza 8 twice daily, MOM twice daily, Senna once daily. She reports no BM, minimal flatus. RECS - Clears. Encouarge mobility, replace K to achive K > 4. Begin Miralax TID in place of MOM, ducolax BID, and use tap water enema. Cont Amitiza. If no improvement, then consider Relistor although data is limited in the post- operative setting. (2) Chronic constipation: (3) Appendicitis: (4) Ileus: History of Present Illness Reason for Consultation: ileus Requesting Physician: Jayant Attending Physician: Lucas Saba MD, [facility] History of Present Illness 37 year old female with history of hypothyroidism, migraine, depression, scolios is, history of back surgery w/ chronic back pain on outpatient narcotic analgesia, chronic constipation on amitzia who presented through the ED on 08/09/18 w/ acute abdominal pain, nausea, vomiting - admitted through surgical service post-op day 2 laparoscopic transitioned to open appendectomy. GI asked to evaluate for ileus. Pt was seen and evaluated, chart reviewed. She is tired but awakens easily to name. She notes chronic constipation as an OP managed on amitiza secondary to prolonged course of outpatient narcotics. She suggests she is tapering down on this w/ plan to D/C or use lowest possible dose. Thursday, she developed severe lower abd pain associated w/ nausea but resolved spontaneously. Symptoms returned and persisted on the w/ CT evidence of acute appendicits. Initially felt well post-operative but developed generalized abd pain and nausea yesterday. Repeat CT scan w/ 4x2x2 cm fluid collection in the paracolic gutter w/ mild small and large bowel distention concerning for an ileus without any evidence of obstruction. She notes she is passing gas but no BM since Thursday. Denies any vomiting. No fever, chills, CP, SOB. CT ABD/Pelvis 08/11/18: Status post interval appendectomy. Small peripherally enhancing fluid collection within the right paracolic cutter that measures 4 x 2.5 x 1.6 cm. This is nonspecific in the early postoperative setting. A small abscess cannot be excluded. Moderate amount of stool within the colon. Mild small and large bowel distention which favors an ileus. No evidence for a bowel obstruction.No change in mild gallbladder distention with trace pericholecystic fluid. This could be correlated with right upper quadrant pain. Small bilateral pleural effusions with associated atelectasis. CT ABD/Pelvis 08/09/18: Acute appendicitis. Trace bilateral pleural effusions and trace pericholecystic fluid. This may be due to overhydration. No gallbladder wall thickening. Colonoscopy 2014: The entire examined colon is normal. Biopsied. Normal mucosa in the distal rectum. Biopsied.Otherwise normal to the terminal ileum, with retroflexedviews of the ascending colon and rectum. Flex Sig 2013: Congested, erythematous and ulcerated mucosa limited onlyto the rectum just beyond the anus. Brushed for cytology. The rectosigmoid and sigmoid colon appear normal. Allergies Allergy/AdvReac Type Severity Reaction Status Date / Time cefixime Allergy Severe ANAPHYLAXIS Verified 08/09/18 22:18 erythromycin base Allergy Severe HIVES Verified 08/09/18 22:18 sodium benzoate Allergy Severe ANAPHYLAXIS Verified 08/09/18 22:19 Sulfa (Sulfonamide Allergy Intermediate ITCHY Verified 08/09/18 22:18 Antibiotics) procaine AdvReac Severe RAPID Verified 08/09/18 22:18 HEART BEAT Home Medications Home Medications Medication Instructions Recorded Confirmed Type acetaminophen [Tylenol] 795 mg PO Q6H PRN 03/11/18 08/09/18 History duloxetine 60 mg PO QAM 03/11/18 08/09/18 History levonorgestrel [Mirena] 1 applic INTRAUTERINE UD 03/11/18 08/09/18 History rizatriptan 10 mg PO DAILY PRN 03/11/18 08/09/18 History topiramate 75 mg PO BID 03/11/18 08/09/18 History trazodone 300 mg PO HS 03/11/18 08/09/18 History amoxapine 25 mg PO QAM 08/09/18 08/09/18 History lubiprostone [Amitiza] 8 mcg PO BIDM 08/09/18 08/09/18 History morphine 15 mg PO BID PRN 08/09/18 08/09/18 History ondansetron 4 mg TRANSLINGUAL Q8H PRN 08/09/18 08/09/18 History oxycodone 30 mg PO Q4H PRN 08/09/18 08/09/18 History promethazine 25 mg PO Q6H PRN 08/09/18 08/09/18 History tizanidine 6 mg PO Q6H PRN 08/09/18 08/09/18 History Patient History Medical History Chronic constipation (Chronic) Migraine (Chronic) Chronic back pain Depression (Chronic) Anxiety (Chronic) Neck pain (Chronic) Surgical History History of spinal surgery (Chronic) 02/17/2018 - Arthrodesis spine posterior thoracic. Posterior spinal segmental instrumentation 7 to 12 PSF Social History Preferred Language: Icelandic Communication Ability: Effective Processor [employer] Required: No Beliefs That Will Affect Care: None Current Living Situation: Alone Other Information That Helps Us Care for You: No Feels Safe at Home: Yes Safety Concerns: Feels Safe At This Time Smoking Status: Unknown if ever smoked Hx Alcohol Use: No Hx Substance Use: Yes substance use type: painkillers Last Used Substance: Unknown Review of Systems Constitutional: + fatigue; no fever, no chills, no weakness, no weight loss and no weight gain Respiratory: no cough, no dyspnea, no hemoptysis and no wheezing Cardiovascular: no chest pain, no radiating jaw, neck or arm pain, no dyspnea on exertion, no palpitations and no lightheadedness Gastrointestinal: + abdominal pain, + bloating, + nausea, + change in bowel habits (worsening constipation, passing gas but no BM since 08/07) and + constipation; no belching, no early satiety, no heartburn, no vomiting, no coffee ground emesis, no hematemesis, no dysphagia, no cramping, no blood in stools and no melena Physical Exam Constitutional: well developed, well nourished and average body habitus; no acute distress Neck: trachea midline Respiratory: normal respiratory effort; no respiratory distress and no cough Auscultation: no crackles and no wheezes Cardiovascular: Rate/Rhythm: regular rate and regular rhythm Heart Sounds: no click, no gallop, no murmur and no cardiac rub Gastrointestinal (Abdomen): Inspection/Auscultation: + abdomen distended and + hypoactive bowel sounds; + abdomen abnormal to inspection (abdominal dressings intact) Results & Data Vital Signs (Past 12 Hours) Vital Signs Temp Pulse Resp BP BP Pulse Ox 08/11/18 07:33 96 08/11/18 07:32 36.9 C 67 16 100/60 87 L 08/11/18 05:15 68 115/74 08/11/18 03:08 89 137/86 08/11/18 00:55 36.5 C 65 16 100/65 99 08/10/18 23:07 36.5 C 62 16 82/44 L 99 08/10/18 22:51 74/40 L 08/10/18 22:43 36.7 C 66 14 73/48 L 90 (1) Appendicitis Appendicitis type: unspecified Qualified Code(s): K37 - Unspecified appendicitis
[2018-08-11] MEDS: TOPIRAMATE 50 MG TAB PO SCH ×2 (09:03→21:59)
[2018-08-11] MEDS: HEPARIN SOD 5,000 UNIT/0.5 ML VIAL SQ SCH ×2 (09:03→21:15)
[2018-08-11] MEDS: DULOXETINE HCL 60 MG CAP PO SCH (09:03)
[2018-08-11] MEDS: MAGNESIUM HYDROXIDE SUSP 30 ML UDC PO SCH ×2 (09:04→21:23)
[2018-08-11] MEDS: LUBIPROSTONE 8 MCG CAP PO SCH ×2 (09:04→17:52)
--- NOTE | 2018-08-11 09:30 | Hospitalist Progress Note ---
Date of Service August 11, 2018 Assessment & Plan (1) Appendicitis: S/P Laparoscopic transitioned to open appendectomy for acute appendicitis with rupture and abscess by orthopedic service Dr. Saba on 08/10/18 EBL# 20ml. ANA drain output# 45ml CT abdomen 08/11/18 1. Status post interval appendectomy. Small peripherally enhancing fluid collection within the right paracolic cutter that measures 4 x 2.5 x 1.6 cm. This is nonspecific in the early postoperative setting. A small abscess cannot be excluded. 2. Moderate amount of stool within the colon. Mild small and large bowel distention which favors an ileus. No evidence for a bowel obstruction. 3. No change in mild gallbladder distention with trace pericholecystic fluid. This could be correlated with right upper quadrant pain. 4. Small bilateral pleural effusions with associated atelectasis. -patient is on empiric Zosyn -send blood cultures 08/11/18 -wound management per general surgery -pain management: dilaudid [employer]OR pump may be associated with low blood pressure, use narcotic pain medications as needed while maintating blood pressure above 90/60 (2) Dysuria: Urine Culture from 08/09/18: No growth - Less than 1,000 colonies/mL, Urine culture from 08/10/18 pending results (3) Chronic back pain: (4) Neck pain: Chronic neck and back pain -narcotic pain medications being given primarily for post abdominal surgery pain contr (5) Anxiety: (6) Depression: home dose amoxapine is nonformulary (7) Migraine: Denies CASTELLANO -Continue Topamax (8) Chronic constipation: -continue Amitiza (lubiprostone) -start senna, miralax DVT prophylaxis: on heparin subcutaneous q12 hours an ultrasound of right lower extremity was ordered by Dr. Arora the previous medicine mortgage consultant but patient declined in AM of 08/11/18 Subjective Patient seen and examined this AM. Nurse at the bedside. Patient cooperative on physical exam. Patient was able to take oral medications. no vomiting. patient reports abdomen discomfort but not in acute distress. patient has not had bowel movement since the surgery. she reports being able to make urine. We discussed the role of medical doctor consultation in the orthopedic context. discussed about patient being on Zosyn antibiotic. she agrees to have blood cultures drawn so that this may help with guiding antibiotic therapy. Physical Exam Constitutional: WD/WN, vitals as above Eyes: PERRL, conjunctivae normal, anicteric sclerae EOM intact bilaterally ENMT: external ear and nose normal, oropharynx normal Neck: trachea midline, no thyromegaly normal visual inspection Respiratory: normal respiratory effort, lungs clear to auscultation Cardiovascular: RRR, no murmur, no edema Gastrointestinal (Abdomen): dressing over abdomen surgical site Musculoskeletal: Head/Neck/Chest: normocephalic and head atraumatic Neurologic: PERRL, EOMI, accommodation nl, no face palsy, no dysarthria Psychiatric: A+Ox3, euthymic affect Results & Data Vital Signs (Past 12 Hours) Vital Signs Temp Pulse Resp BP BP Pulse Ox 08/11/18 07:33 96 08/11/18 07:32 36.9 C 67 16 100/60 87 L 08/11/18 05:15 68 115/74 08/11/18 03:08 89 137/86 08/11/18 00:55 36.5 C 65 16 100/65 99 08/10/18 23:07 36.5 C 62 16 82/44 L 99 08/10/18 22:51 74/40 L 08/10/18 22:43 36.7 C 66 14 73/48 L 90 (1) Appendicitis Appendicitis type: unspecified Qualified Code(s): K37 - Unspecified appendicitis
[2018-08-11] MEDS ORDERED: POLYETHYLENE (MIRALAX) 17 GM PACK PO PRN (09:35)
--- NOTE | 2018-08-11 11:11 | XRay Report ---
KUB HISTORY: ileus on CT, measure bowel dilation if present COMPARISON: Abdomen and pelvis CT 08/11/2018. FINDINGS: There is a percutaneous surgical drain within the right side the abdomen with the tip gwyn cooney in the left lower quadrant. The bladder is mildly distended and filled with contrast from the recent CT examination. An intrauterine device is seen within the mid pelvis. Multiple mildly dilated gas-filled loops of large and small bowel are seen throughout the abdomen. The small bowel is dilated up to 3 cm. No renal calculi. No ureteral calculi. Lumbar spinal fusion hardware is noted. IMPRESSION: Mildly dilated gas-filled loops of large and small bowel seen throughout the abdomen. This favors an ileus. Electronically signed by: Jacky Howe M.D. 08/11/2018 11:10 AM
[2018-08-11] MEDS: SODIUM CHLORIDE 0.9% 1000ML 1,000 ML IV SCH (12:09)
[2018-08-11] MEDS: SENNA 8.6 MG TAB PO SCH (13:10)
[2018-08-11] MEDS: POLYETHYLENE (MIRALAX) 17 GM PACK PO SCH ×2 (14:00→21:59)
[2018-08-11] MEDS ORDERED: Nursing to Pharmacy Communication ONE (15:18)
[2018-08-11] MEDS: MAGNESIUM CITRATE 296 ML/BTL PO PRN (20:57)
[2018-08-11] MEDS: TRAZODONE HCL 100 MG TAB PO SCH (22:00)
[2018-08-12] MEDS: OXYCODONE HCL IR 30 MG TAB (IMMEDIATE RELEASE) PO SCH ×6 (01:03→21:09)
[2018-08-12] MEDS: TIZANIDINE HCL 4 MG TABLET PO SCH ×4 (01:03→18:58)
[2018-08-12] MEDS: PROMETHAZINE HCL 12.5 MG in SODIUM CHLORIDE 0.9% 50 ML IV PRN (03:35)
[2018-08-12] MEDS: HYDROmorphone INJ 0.5 MG/0.5 ML SYR IV PRN ×2 (03:36→11:56)
[2018-08-12] MEDS: PIPERACILLIN/TAZOBACTAM 3.375 GM in DEXTROSE 5% 100 ML IV SCH ×2 (03:36→11:54)
[2018-08-12] MEDS: SODIUM CHLORIDE 0.9% 1000ML 1,000 ML IV SCH (05:15)
[2018-08-12] MEDS: MAGNESIUM CITRATE 296 ML/BTL PO PRN (05:23)
[2018-08-12] MEDS ORDERED: BISACODYL 5 MG TABEC PO ONE ×2 (07:03→07:14)
[2018-08-12] MEDS ORDERED: BISACODYL 10 MG SUPP PR STA (07:13)
--- NOTE | 2018-08-12 07:28 | Progress Note ---
Date of Service August 12, 2018 Assessment & Plan (1) Ruptured appendix: walked in hallway yesterday- pain controlled w/ dilaudid (also oxy, xanaflex) she is distended, has bowel sounds, min tenderness, no nausea, emesis no bm yet- she has her own routine- mag citrate, coffee, water give Dulcolax supp this am- refuses enema asked Dr Crockett for help- what pain med to send her home with if bowels move consider d/c tomorrow with drains Subjective see A/P Results & Data Vital Signs (Past 12 Hours) Vital Signs Temp Pulse Resp BP Pulse Ox 08/11/18 20:05 36.9 C 56 L 17 105/70 93
--- NOTE | 2018-08-12 08:08 | XRay Report ---
KUB CLINICAL HISTORY: Ileus. Recent appendectomy. COMPARISON STUDY: CT of the abdomen and pelvis and KUB August 11, 2018. FINDINGS: Postoperative findings within the thoracolumbar spine are partially imaged. A right lower q uadrant drain is noted as well as an intrauterine device. Gaseous distention of the colon and rectum has significantly increased since exam of August 11, 2018. Cecum measures 9.8 cm in caliber. Mild small bowel gaseous distention is similar to prior exam. Moderate amount of stool within the colon is note d. IMPRESSION: Significant increase in gaseous distention of the colon with the cecum measuring 9.8 cm in caliber. M ild small bowel dilatation. The findings suggest a worsening ileus. Electronically signed by: Zenon Drummond M.D. 08/12/2018 8:07 AM
--- NOTE | 2018-08-12 08:32 | Gastroenterology Progress Note ---
Date of Service August 12, 2018 Assessment & Plan (1) Constipation: 37 year old female with history of chronic back pain on outpatient narcotics, chronic constipation on amitizia who presented though the ED w/ acute abdominal pain, nausea, vomiting CT evidence of acute appendicitis post-op day 2 of laparoscopic converted to open appendectomy now w/ generalized abd pain, nausea inability to pass stool but notes passing gas CT w/ evidence of ileus but w/o concern for obstruction. AM KUB pending, she notes she is now passing a lot of gas, no BM but less pain. - Review KUB once available - Clear liquids - Anti-emetics PRN - Limit narcotic analgesia - Consider NG tube placement if nausea persists or she developed vomiting - Pending clinical course, consider relistor 08/13/18 - Miralax TID - Ducolax BID - Cont Amitiza - We had discussed if prolonged taper of outpatient narcotics is required can trial Movantik Thank you for allowing us to participate in the care of this patient. Please call with any acute changes, questions or concerns. Please see addendum below with additional recommendation from my supervising physician. Attg add: I interviewed and examined pt, reviewed chart and labs. Received Miralax, senna, Mag citrate, MOM Pt reports small amt of flatus this am. She was walking around this am. She reports a large BM around noon; she subsequently has resolution of her heartburn. She continues oxy every 6 hours and received dilaudid once. KUB done early this am show cecal dilation to 10 cm. On exam, her abd remains mod distended, soft, tympanic, decr BS, approp tenderness in RLQ. A/P: Post-op ileus with enlarging cecum on AXR this am; Pt reports large BM post xray - She reports improvement in bowel function, although AXR from this am appears worse. Will repeat AXR this afternoon to see if cecal diameter is improved post her BM. I have continued to encourage her to walk as much as possible, or at least shift position in bed or sit in chair; I have also encouraged her to minimize narcotic use. - Continue Miralax TID, Senna BID, Amitiza BID, MOM BID. Unfortunately, there is no data regarding Relistor in the post-operative setting, and there are case reports of perforation with Relistor. Nevertheless, the benefits of Relistor may outweigh the risks if her cecal diameter continues to increase. She is not a candidate for endoscopic decompression, as her recent appy makes her prohibitively high risk for perforation. - Please check mag levels daily, as she received multiple doses of magnsium based laxatives. Will also check potassium. - Cont clear liquid diet, pending repeat AXR. (2) Chronic constipation: (3) Appendicitis: (4) Ileus: Subjective Pt was seen and evaluated, chart reviewed. AM KUB pending. She notes she is passing gas, abd feels slightly improved this AM. Less constant pain. No nausea, vomiting. No BM. No fever, chills, CP, SOB. KUB 08/12/18: pending KUB 08/11/18: Mildly dilated gas-filled loops of large and small bowel seen throughout the abdomen. This favors an ileus. CT ABD/Pelvis 08/11/18: Status post interval appendectomy. Small peripherally enhancing fluid collection within the right paracolic cutter that measures 4 x 2.5 x 1.6 cm. This is nonspecific in the early postoperative setting. A small abscess cannot be excluded. Moderate amount of stool within the colon. Mild small and large bowel distention which favors an ileus. No evidence for a bowel obstruction.No change in mild gallbladder distention with trace pericholecystic fluid. This could be correlated with right upper quadrant pain. Small bilateral pleural effusions with associated atelectasis. CT ABD/Pelvis 08/09/18: Acute appendicitis. Trace bilateral pleural effusions and trace pericholecystic fluid. This may be due to overhydration. No gallbladder wall thickening. Colonoscopy 2014: The entire examined colon is normal. Biopsied. Normal mucosa in the distal rectum. Biopsied.Otherwise normal to the terminal ileum, with retroflexedviews of the ascending colon and rectum. Flex Sig 2013: Congested, erythematous and ulcerated mucosa limited onlyto the rectum just beyond the anus. Brushed for cytology. The rectosigmoid and sigmoid colon appear normal. Review of Systems Constitutional: no fever, no chills and no fatigue Respiratory: no cough, no dyspnea and no wheezing Cardiovascular: no chest pain, no radiating jaw, neck or arm pain, no dyspnea on exertion and no palpitations Gastrointestinal: + abdominal pain (generalized but less than yesterday), + bloating, + excessive flatulence (increased gas from below today) and + constipation; no nausea and no vomiting Physical Exam Constitutional: well developed; no acute distress Neck: trachea midline Respiratory: normal respiratory effort; no respiratory distress Auscultation: no crackles, no rales and no rhonchi Cardiovascular: Rate/Rhythm: regular rate and regular rhythm Gastrointestinal (Abdomen): Inspection/Auscultation: + abdomen distended and normal bowel sounds Percussion/Palpation: + abdomen tender and abdomen soft; no guarding and abdomen not rigid Skin: no rashes, warm and dry (1) Appendicitis Appendicitis type: unspecified Qualified Code(s): K37 - Unspecified appendicitis
[2018-08-12] MEDS: SENNA 8.6 MG TAB PO SCH ×2 (09:15→21:11)
[2018-08-12] MEDS: POLYETHYLENE (MIRALAX) 17 GM PACK PO SCH ×3 (09:15→21:10)
[2018-08-12] MEDS: LUBIPROSTONE 8 MCG CAP PO SCH ×3 (09:15→17:01)
[2018-08-12] MEDS: MAGNESIUM HYDROXIDE SUSP 30 ML UDC PO SCH ×2 (09:15→21:10)
[2018-08-12] MEDS: TOPIRAMATE 50 MG TAB PO SCH ×2 (09:17→21:13)
[2018-08-12] MEDS: DULOXETINE HCL 60 MG CAP PO SCH (09:18)
[2018-08-12] MEDS: HEPARIN SOD 5,000 UNIT/0.5 ML VIAL SQ SCH ×2 (09:18→21:33)
--- NOTE | 2018-08-12 09:31 | Pain Management Consultation ---
Date of Consultation August 12, 2018 Assessment & Plan (1) History of appendectomy: Present on Admission?: No (2) Opioid dependence: Present on Admission?: Yes (3) Ileus: Present on Admission?: No (4) History of spinal surgery: Present on Admission?: Yes (5) Anxiety: Present on Admission?: Yes (6) Chronic back pain: 1. Patient with predominant complaint of abdominal pain in the postsurgical setting status post appendectomy performed on 08/10/2018 with persisting ileus likely compounded by utilization of opiate analgesics. Patient has been chronically utilizing opiates in the outpatient setting prior to admission since the time of a spinal surgical procedure in January 2018 performed at [facility] in [place]. Patient reports that she has not been utilizing MS Contin although upon review of PDMP the patient has been receiving MS Contin consistently over the past few months. In light of abdominal pain being a persistent complaint and ongoing difficulties with ileus could consider transverse abdominal plain block with Exparel in an attempt to diminish her abdominal wall pain complaints to concomitantly diminish utilization of her opiate therapy in hopes of improving her ileus. Patient will consider this procedure. She was instructed to inform the hospitalist service who may contact Dr. Crockett/anesthesia service to perform the procedure. 2. Relistor could be considered to treat suspected opioid induced constipation if determine safe per GI/hospitalist service in the postsurgical timeframe. Could also consider a trial of Movantik. 3. Recommend limiting utilization of any IV hydromorphone at this time. Patient may continue with her oxycodone for which she has been utilizing reportedly 4 times daily prior to admission. She may resume these medications upon discharge pending follow-up with her outpatient prescribing physician. 4. Would recommend the patient have Narcan available upon discharge due to her current 337.0 average MME per day per review of PDMP. 5. Review of PDMP indicates 49 controlled substance prescriptions over the past 1 year with 9 episodes of private pay and 6 total prescribers with 2 pharmacies utilized. Present on Admission?: Yes History of Present Illness Reason for Consultation: Abdominal pain, back pain and chronic opioid dependency Requesting Physician: Lucas Saba MD Attending Physician: Lucas Saba MD, [facility] History of Present Illness Mrs. Roblero is a 37-year-old white female who was admitted on 08/09/2018 due to abdominal pain and constipation who was found to have an acute appendicitis who underwent an open appendectomy per Dr. Saba on 08/10/2018 with discovery of a ruptured and abscessed appendix. Patient has been complaining of persisting abdominal pain which is generalized with some increase near the incisional site in the right lower quadrant. She is also not experienced a bowel movement since the time of her surgical procedure. She is able to pass gas and is describing abdominal distention without nausea or vomiting. Patient's case is further complicated by the fact that she under had an extensive surgical procedure of the spine for scoliosis correction at [facility] in [place] in January 2018 and has been on chronic opiate therapy over the past 7 months under the direction of [facility] surgical team. Patient reports that she has been recently diminishing her utilization of oxycodone in an attempt to wean off of opiate therapy. Patient reports that she has been only utilizing oxycodone 30 mg 3-4 times daily over the past few months which is significantly diminished from her prior use per her report. She reports that she needs to "wean off her opiates" that she can have a repeat surgical intervention of the spinal region. She reports she has not utilized morphine in many months although upon review of PDMP it indicates that she has been receiving MS Contin 15 mg #60 tablets most recently on 08/04/2018 and consistently every 15 days dating back to 06/22/2018. PDMP indicates oxycodone 30 mg #60 tablets most recently on 08/05/2018 receiving a similar prescription every 10 days dating back to January. Patient indicates that her abdominal pain is greater than her back pain at this time. Patient indicates that she is groggy this morning rating her pain at a 4- 6/10 which is generalized over the abdominal region. She reports increased pain in the cervical and thoracic spinal regions with movement. She denies radicular or radiating pain in the upper extremities or lower extremities. She denies any bowel or bladder incontinence. Patient denies any saddle anesthesias. Patient has no further constitutional complaints at this time. Plan of care discussed with Dr. Crockett. Pain Assessment Full Body Front + Back: 1. Generalized abdominal pain with slight increase in right lower quadrant pain near incisional site 2. Axial cervical thoracic back pain Pain scale - at its best (0-10): 4 Pain scale - at its worst (0-10): 8 Allergies Allergy/AdvReac Type Severity Reaction Status Date / Time cefixime Allergy Severe ANAPHYLAXIS Verified 08/09/18 22:18 erythromycin base Allergy Severe HIVES Verified 08/09/18 22:18 sodium benzoate Allergy Severe ANAPHYLAXIS Verified 08/09/18 22:19 Sulfa (Sulfonamide Allergy Intermediate ITCHY Verified 08/09/18 22:18 Antibiotics) procaine AdvReac Severe RAPID Verified 08/09/18 22:18 HEART BEAT Home Medications Home Medications Medication Instructions Recorded Confirmed Type acetaminophen [Tylenol] 795 mg PO Q6H PRN 03/11/18 08/09/18 History duloxetine 60 mg PO QAM 03/11/18 08/09/18 History levonorgestrel [Mirena] 1 applic INTRAUTERINE UD 03/11/18 08/09/18 History rizatriptan 10 mg PO DAILY PRN 03/11/18 08/09/18 History topiramate 75 mg PO BID 03/11/18 08/09/18 History trazodone 300 mg PO HS 03/11/18 08/09/18 History amoxapine 25 mg PO QAM 08/09/18 08/09/18 History lubiprostone [Amitiza] 8 mcg PO BIDM 08/09/18 08/09/18 History morphine 15 mg PO BID PRN 08/09/18 08/09/18 History ondansetron 4 mg TRANSLINGUAL Q8H PRN 08/09/18 08/09/18 History oxycodone 30 mg PO Q4H PRN 08/09/18 08/09/18 History promethazine 25 mg PO Q6H PRN 08/09/18 08/09/18 History tizanidine 6 mg PO Q6H PRN 08/09/18 08/09/18 History Pain History Pain Intensity Pain scale - at its best (0-10): 4 Pain scale - at its worst (0-10): 8 Patient History Medical History Opioid dependence (Chronic) Chronic constipation (Chronic) Migraine (Chronic) Chronic back pain Depression (Chronic) Anxiety (Chronic) Neck pain (Chronic) Surgical History History of appendectomy (Resolved) History of spinal surgery (Chronic) 02/17/2018 - Arthrodesis spine posterior thoracic. Posterior spinal segmental instrumentation 7 to 12 PSF Social History Preferred Language: Macanese Communication Ability: Effective Aircraft Assembler Required: No Beliefs That Will Affect Care: None Current Living Situation: Alone Other Information That Helps Us Care for You: No Feels Safe at Home: Yes Safety Concerns: Feels Safe At This Time Smoking Status: Unknown if ever smoked Hx Alcohol Use: No Hx Substance Use: Yes substance use type: painkillers Last Used Substance: Unknown Physical Exam Physical Exam: General: Patient lying quietly in exam room in no acute distress. Speech and thought process appropriate. Patient was somewhat sedate/groggy throughout the visit but was able to answer questions appropriately. Cognition intact. Head: Normocephalic and atraumatic. ENT: No evidence of nasal or oral mucosal lesions. Mucous membranes are moist. Neck: Supple without adenopathy. Diminished range of motion in all planes. Chest: Nontender to palpation of the costosternal junction. Lungs: Clear to auscultation no wheeze or rhonchi. Abdomen: Firm and moderately distended. Hypertympanic throughout. Multiple incisional sites with dressings in place were not removed for visual inspection. Patient moderately tender to palpation over the entire abdominal region slightly increased in the right lower quadrant. No organomegaly. Back/spine: Patient with inability to completely logroll towards her right side for visual inspection. Palpation of the entire cervical, thoracic and lumbar spinal location provided no focal pain. Lower extremities: Strength testing was 4/5 throughout without focal deficit. Sensation was reportedly intact to sharp and dull. No evidence of edema, erythema or skin breakdown. Neurologic: Cranial nerves grossly intact. Ambulatory function not witnessed. Results Diagnostic Review Radiology: reports reviewed Radiology Findings: [place], [place] [phone] XRay Report Patient: PERI ROBLERO Date: 08/10/18 MR#: [id number]: [id number] [facility] Acct ID:[id number]: Date: 1980[facility] Zip: [place] [address] Age: 37Location: 3N Sex: F Room/Bed: N380-1 Att Phy: Lucas Saba, MDDiagnosis: RUPTURED APPENDIX Thania Phy: Kaleb Aviles, DOService Date: 08/12/18 Fam Phy: Interpreting Phy: Zenon Drummnod MD Admit Phy: Lucas Saba MD Ordering Phy: Lucas Saba MD cc: ~ KUB CLINICAL HISTORY: Ileus. Recent appendectomy. COMPARISON STUDY: CT of the abdomen and pelvis and KUB August 11, 2018. FINDINGS: Postoperative findings within the thoracolumbar spine are partially imaged. A right lower quadrant drain is noted as well as an intrauterine device. Gaseous distention of the colon and rectum has significantly increased since exam of August 11, 2018. Cecum measures 9.8 cm in caliber. Mild small bowel gaseo us distention is similar to prior exam. Moderate amount of stool within the colon is noted. IMPRESSION: Significant increase in gaseous distention of the colon with the cecum measuring 9.8 cm in caliber. Mild small bowel dilatation. The findings suggest a worsening ileus. Electronically signed by: Zenon Drummond M.D. 08/12/2018 8:07 AM Dictated: 08/12/18 0803 Transcribed: 08/12/18 0803
--- NOTE | 2018-08-12 13:56 | XRay Report ---
KUB CLINICAL HISTORY: Colonic distention. FINDINGS: An AP supine abdominal radiograph is compared to study performed earlier the same day 2018 and correlated with abdominal CT dated 08/11/2018. A surgical drain projects over the pelvis. The re is persistent gaseous distention of the small bowel loops and colon. The cecum measures up to 8 cm in diameter. No evidence of intraperitoneal free air is seen on this supine image. An intrauterine d evice and phleboliths are noted in the pelvis. The skeletal structures are osteopenic. Fusion hardwar e is noted at the thoracolumbar junction. IMPRESSION: There is persistent gaseous distention of the small bowel loops and colon, not significan tly changed from earlier today. Electronically signed by: Bradly Alegre M.D. 08/12/2018 1:55 PM
--- NOTE | 2018-08-12 15:08 | Hospitalist Progress Note ---
Date of Service August 12, 2018 Assessment & Plan (1) Appendicitis: S/P Laparoscopic transitioned to open appendectomy for acute appendicitis with rupture and abscess by orthopedic service Dr. Saba on 08/10/18 EBL# 20ml. ANA drain output# 45ml CT abdomen 08/11/18 1. Status post interval appendectomy. Small peripherally enhancing fluid collection within the right paracolic cutter that measures 4 x 2.5 x 1.6 cm. This is nonspecific in the early postoperative setting. A small abscess cannot be excluded. 2. Moderate amount of stool within the colon. Mild small and large bowel distention which favors an ileus. No evidence for a bowel obstruction. 3. No change in mild gallbladder distention with trace pericholecystic fluid. This could be correlated with right upper quadrant pain. 4. Small bilateral pleural effusions with associated atelectasis. -patient was started on Zosyn empirically, will stop Zosyn on 08/12/18 and transition to oral Augmentin 875 mg BID as patient's blood and urine cultures have been negative and leukocytosis had downtrended -wound management per general surgery (2) Dysuria: -suspected urinary tract infection because of dsyuria symptoms -however Urine Culture from 08/09/18: No growth - Less than 1,000 colonies/mL, Urine culture from 08/10/18 no growth -patient have been on antibiotics (3) Chronic back pain: -Patient with predominant complaint of abdominal pain in the postsurgical setting status post appendectomy performed on 08/10/2018 with persisting ileus likely compounded by utilization of opiate analgesics -limiting utilization of any IV hydromorphone at this time. Patient may continue with her oxycodone for which she has been utilizing reportedly 4 times daily prior to admission. She may resume these medications upon discharge pending follow-up with her outpatient prescribing physician. -Relistor will be ordered to treat suspected opioid induced constipation -bowel regimen of senna and Miralax -pain management recommend the patient have Narcan available upon discharge due terminal clerk outpatient use of narcotic pain medications (4) Neck pain: no acute neck pain currently (5) Anxiety: (6) Depression: home dose amoxapine is nonformulary (7) Migraine: Denies CASTELLANO -Continue Topamax (8) Chronic constipation: -continue Amitiza (lubiprostone) -start senna, miralax DVT prophylaxis: on heparin subcutaneous q12 hours an ultrasound of right lower extremity was ordered by Dr. Arora the previous medicine clinical documentation consultant but patient declined in AM of 08/11/18 Subjective Patient seen and examined at bedside. she is cooperative. awaken and answers qu estion appropriately. somewhat drowsy. patient reports that her sleep if often interrupted by medical staff. she is breathing on room air. no acute respiratory distress. she was explained plans for antibiotic de-escalation. Patient does not appear to be in severe pain Physical Exam Constitutional: comfortable Eyes: EOM intact bilaterally ENMT: external ear and nose normal, oropharynx normal Neck: normal visual inspection Respiratory: normal respiratory effort, lungs clear to auscultation Cardiovascular: RRR, no murmur, no edema Gastrointestinal (Abdomen): Inspection/Auscultation: normal bowel sounds Percussion/Palpation: abdomen soft Musculoskeletal: Head/Neck/Chest: normocephalic and head atraumatic Neurologic: moves all extremities Psychiatric: Orientation: cooperative Results & Data Vital Signs (Past 12 Hours) Vital Signs Temp Pulse Resp BP Pulse Ox 08/12/18 09:30 36.5 C 62 18 123/83 97 (1) Appendicitis Appendicitis type: unspecified Qualified Code(s): K37 - Unspecified appendicitis
[2018-08-12] MEDS ORDERED: METHYLNALTREXONE BROMIDE 12 MG/0.6 ML VIAL SQ SCH (15:15)
[2018-08-12] MEDS ORDERED: LACTULOSE SYRUP 10 GM/15 ML BTL 473 ML PO STA (15:28)
[2018-08-12 15:38] LABS: 7-Aminoclonaz, Confirm 32 NG/ML (CUTOFF=25); Hydro-Alp Ur, GC/MS 360 NG/ML (CUTOFF=25); Hydrocodone Urine NEGATIVE NG/ML (CUTOFF=50); Hydromor Urine NEGATIVE NG/ML (CUTOFF=50); Hydroxyethylflurazepam, Conf NEGATIVE NG/ML (CUTOFF=50); Hydroxytriazolam NEGATIVE NG/ML (CUTOFF=50); Lorazepam, Ur GC/MS NEGATIVE NG/ML (CUTOFF=50); Morphine Urine NEGATIVE NG/ML (CUTOFF=50); Nordiazepam, Confirm NEGATIVE NG/ML (CUTOFF=50); Norhydrocodone Conf Ur NEGATIVE NG/ML (CUTOFF=50); Noroxycodone Urine >20000 NG/ML (CUTOFF=50); Oxazepam Ur, GC/MS NEGATIVE NG/ML (CUTOFF=50); Oxycodone Urine >20000 NG/ML (CUTOFF=50); Temazepam, Confirm NEGATIVE NG/ML (CUTOFF=50)
[2018-08-12] MEDS: AMOXICILLIN/CLAVULANATE 875 MG TAB PO SCH ×2 (16:48→17:01)
[2018-08-12 19:27] LABS: Magnesium 2.2 mg/dl (1.8-2.4)
[2018-08-12] MEDS: TRAZODONE HCL 100 MG TAB PO SCH ×2 (22:18→22:41)
[2018-08-12] MEDS: KETOROLAC TROMETHAMINE 15 MG/ML VIAL IV PRN (22:53)
[2018-08-13] MEDS: SODIUM CHLORIDE 0.9% 1000ML 1,000 ML IV SCH (00:16)
[2018-08-13] MEDS: TIZANIDINE HCL 4 MG TABLET PO SCH ×2 (00:19→06:45)
[2018-08-13] MEDS: OXYCODONE HCL IR 30 MG TAB (IMMEDIATE RELEASE) PO SCH ×3 (01:29→08:11)
[2018-08-13 06:50] LABS: Hematocrit (blood only) 40.5 % (37-47); Hemoglobin 13.5 g/dL (12.0-16.0); Mean Corpuscular Hgb Conc 33.3 g/dL (32-36); Mean Corpuscular Volume 89.2 fL (80-100); Mean Platelet Volume 9.3 fL (7.4-10.4); Platelet Count 305 K/uL (130-400); RDW Coefficient of Variation 13.1 % (11.5-14.5); RDW Standard Deviation 42.4 fL (36.4-46.3); Red Blood Count 4.54 M/uL (4.2-5.4); White Blood Count 5.62 K/uL (4.8-10.8)
[2018-08-13] MEDS: KETOROLAC TROMETHAMINE 15 MG/ML VIAL IV PRN (07:15)
--- NOTE | 2018-08-13 07:25 | XRay Report ---
KUB HISTORY: Follow-up study in a patient with abdominal distention and ileus f/u ileus COMPARISON: KUB 08/12/2018. FINDINGS: Persistent gaseous distention of large and small bowel, large bowel loops measuring up to 7 .1 cm, previously 7.9 cm. No pneumatosis or pneumoperitoneum. Posterior bernardo and screw fusion of the t horacolumbar spine redemonstrated. IUD about the upper central pelvis. Multiple pelvic basin calcific ations are again noted suggestive of phleboliths. No definite urolith. A catheter is noted projecting over the abdominal left lower quadrant. IMPRESSION: Persistent yet decreased small and large bowel distention is suggestive of ongoing ileus. Electronically signed by: Froy Tineo M.D. 08/13/2018 7:24 AM
[2018-08-13] MEDS: LUBIPROSTONE 8 MCG CAP PO SCH (08:04)
[2018-08-13] MEDS: TOPIRAMATE 50 MG TAB PO SCH (08:04)
[2018-08-13] MEDS: MAGNESIUM HYDROXIDE SUSP 30 ML UDC PO SCH (08:04)
[2018-08-13] MEDS: AMOXICILLIN/CLAVULANATE 875 MG TAB PO SCH (08:04)
[2018-08-13] MEDS: DULOXETINE HCL 60 MG CAP PO SCH (08:04)
[2018-08-13] MEDS: SENNA 8.6 MG TAB PO SCH (08:05)
[2018-08-13] MEDS: HEPARIN SOD 5,000 UNIT/0.5 ML VIAL SQ SCH (08:05)
[2018-08-13] MEDS: POLYETHYLENE (MIRALAX) 17 GM PACK PO SCH (08:05)
--- NOTE | 2018-08-13 08:15 | Surgery Progress Note ---
Date of Service August 13, 2018 Assessment & Plan (1) Ruptured appendix: POD 4 perf appy bowels moving will d/c home with drains f/u Mon-Tues for drain removal Subjective BM this morning, feels well today, ready to go home Physical Exam Gastrointestinal (Abdomen): Inspection/Auscultation: + abdominal surgical incision (no erythema, minimal zehra drainage) and + abdominal surgical drain present (ANA 10 cc overnight) Results & Data Vital Signs (Past 12 Hours) Vital Signs Temp Pulse Pulse Resp BP BP Pulse Ox 08/13/18 07:13 37 C 70 16 133/84 98 08/13/18 01:19 152/94 H 08/13/18 00:19 90 99/66 L 08/12/18 23:27 36.7 C 82 14 94/62 L 95
--- NOTE | 2018-08-13 09:05 | Gastroenterology Progress Note ---
Date of Service August 13, 2018 Assessment & Plan (1) Constipation: 37 year old female with history of chronic back pain on outpatient narcotics, chronic constipation on amitizia who presented though the ED w/ acute abdominal pain, nausea, vomiting CT evidence of acute appendicitis post-op day 2 of laparoscopic converted to open appendectomy now w/ generalized abd pain, nausea inability to pass stool but notes passing gas CT w/ evidence of ileus but w/o concern for obstruction. Now passing stool, gas w/ improvement of abdominal pain. KUB this AM slightly improved. - OK to advance diet from GI standpoint - Anti-emetics PRN - Limit narcotic analgesia - Continue bowel regimen - Miralax TID - Ducolax BID - Cont Amitiza - We had discussed if prolonged taper of outpatient narcotics is required can trial Movantik Will watch peripherally. Thank you for allowing us to participate in the care of this patient. Please call with any acute changes, questions or concerns. Please see addendum below with additional recommendation from my supervising physician. (2) Chronic constipation: (3) Appendicitis: (4) Ileus: Supervising Physician Co-Signing Physician Notes The patient was discharged before afternoon rounds. She will follow with our group as needed. Would suggest limiting use of narcotics as an outpatient. Subjective Pt was seen and evaluated, chart reviewed. No acute events noted overnight. No abd pain this AM. Feeling better. Moving bowels now. Large stool. No black/bloody. No nausea, vomiting. Wants to go home. KUB 08/13/18: Persistent yet decreased small and large bowel distention is suggestive of ongoing ileus, 7.1 CM KUB 08/12/18: The cecum measures up to 8 cm in diameter KUB 08/12/18: increase in gaseous distention of the colon with the cecum measuring 9.8 cm in caliber. Mild small bowel dilatation. The findings suggest a worsening ileus. KUB 08/11/18: Mildly dilated gas-filled loops of large and small bowel seen throughout the abdomen. This favors an ileus. CT ABD/Pelvis 08/11/18: Status post interval appendectomy. Small peripherally enhancing fluid collection within the right paracolic cutter that measures 4 x 2.5 x 1.6 cm. This is nonspecific in the early postoperative setting. A small abscess cannot be excluded. Moderate amount of stool within the colon. Mild small and large bowel distention which favors an ileus. No evidence for a bowel obstruction.No change in mild gallbladder distention with trace pericholecystic fluid. This could be correlated with right upper quadrant pain. Small bilateral pleural effusions with associated atelectasis. CT ABD/Pelvis 08/09/18: Acute appendicitis. Trace bilateral pleural effusions and trace pericholecystic fluid. This may be due to overhydration. No gallbladder wall thickening. Colonoscopy 2014: The entire examined colon is normal. Biopsied. Normal mucosa in the distal rectum. Biopsied.Otherwise normal to the terminal ileum, with retroflexedviews of the ascending colon and rectum. Flex Sig 2013: Congested, erythematous and ulcerated mucosa limited onlyto the rectum just beyond the anus. Brushed for cytology. The rectosigmoid and sigmoid colon appear normal. Review of Systems Constitutional: no fever, no chills, no fatigue and no weight loss Respiratory: no cough, no dyspnea, no hemoptysis and no wheezing Cardiovascular: no chest pain, no dyspnea on exertion, no palpitations and no edema Gastrointestinal: no abdominal pain, no nausea, no vomiting, no coffee ground emesis, no hematemesis, no blood in stools and no melena Physical Exam Constitutional: well developed, well nourished and average body habitus; no acute distress Neck: trachea midline Respiratory: normal respiratory effort; no respiratory distress and no cough Auscultation: no crackles, no rales, no rhonchi and no wheezes Cardiovascular: Rate/Rhythm: regular rate and regular rhythm Heart Sounds: no click, no gallop, no murmur and no cardiac rub Gastrointestinal (Abdomen): Inspection/Auscultation: normal bowel sounds; + abdomen abnormal to inspection (abdominal dressings intact) and abdomen not distended Percussion/Palpation: + abdomen tender and abdomen soft; no guarding and abdomen not rigid Skin: no rashes, warm and dry Results & Data Vital Signs (Past 12 Hours) Vital Signs Temp Pulse Pulse Resp BP BP Pulse Ox 08/13/18 07:13 37 C 70 16 133/84 98 08/13/18 01:19 152/94 H 08/13/18 00:19 90 99/66 L 08/12/18 23:27 36.7 C 82 14 94/62 L 95 (1) Appendicitis Appendicitis type: unspecified Qualified Code(s): K37 - Unspecified joan endicitis
--- NOTE | 2018-08-16 16:55 | Discharge Summary ---
Date of Service August 16, 2018 Admission HPI Per Admitting Provider to ER with acute abd pain- CT shows acute appendicitis CTA neg for PE or acute process Principal Diagnosis 1. Perforated appendicitis with abscess 2. Ileus, postoperative + narcotic 3. Chronic constipation 4. Chronic back, neck pain 5. Opioid dependence 6. Migranes 7. Anxiety/depression Discharge Exam Gastrointestinal (Abdomen) Inspection/Auscultation: + abdomen distended (mild), + abdominal surgical incision (minimal zehra drainage, no erythema) and + abdominal surgical drain present (10 cc overnight) Percussion/Palpation: abdomen soft Discharge Data Allergies Allergy/AdvReac Type Severity Reaction Status Date / Time cefixime Allergy Severe ANAPHYLAXIS Verified 08/09/18 22:18 erythromycin base Allergy Severe HIVES Verified 08/09/18 22:18 sodium benzoate Allergy Severe ANAPHYLAXIS Verified 08/09/18 22:19 Sulfa (Sulfonamide Allergy Intermediate ITCHY Verified 08/09/18 22:18 Antibiotics) procaine AdvReac Severe RAPID Verified 08/09/18 22:18 HEART BEAT Consultations 08/09/18 22:35 Consult Hospitalist Routine 08/11/18 06:07 Consult Gastroenterology Routine 08/12/18 06:59 Consult Case Management - Discharge Planning Routine 08/12/18 07:21 Consult Pain Management Stat Procedures Performed Operation Date: 08/09/18 22:30 Actual Procedures s Laparoscopic Appendectomy - Lucas Saba MD, FACS p Appendectomy - converted to open. - Lucas Saba MD, FACS Ordered Studies 08/09/18 19:48 CT abd pelvis IV con only Stat 08/09/18 19:50 CT angio chest PE protocol Stat 08/11/18 03:49 CT abd pelvis IV con only Urgent Hospital Course (1) Ruptured appendix: 37 y/o female presented to ED with 3 day history of abdominal pain with fevers and N/V. WBC was 11,[address] consistent with appendicitis. She was taken to the OR for laparoscopic appendectomy which was converted to open for perforated appendix with contained abscess. She was transferred to the surgical floor, continued on IV Zosyn throughout admission. She has history of narcotic use for back pain, and [employer] was used initially. She developed an ileus, GI was consulted also given history of chronic constipation and Amitiza use. Miralax and dulcolax were added. Cecal diameter was up to 9 cm when her bowels then began moving on POD 3. White count had remained normal since POD 1. Pain management had been consulted but her pain improved after her bowels began moving. POD 4 she was tolerating regular diet and oral analgesics. She had had multiple bowel movements. She was stable for discharge home with ANA and zehra drains which be removed in the office in a few days. Total Time Total Time Spent Total Time Spent (In Minutes): 15 Discharge Plan Discharge Items Patient Disposition: Home - Self-Care Reason For Visit: RUPTURED APPENDIX Discharge Diagnosis: ruptured appendix w/ ileus Discharge Goals: Decrease discomfort, Improve disease control and Improve func tion Activity: As commented below Activity Comment: light activity for 4 weeks Lifting: No more than 10 pounds Bathing Comment: may shower Sexual Activity: When tolerated Exercise Comment: wait 4 weeks Driving/Machine Use Comment: 1 week Non-emergency contact: Primary Care Provider and Surgeon Call non-emergency contact if: your pain is not controlled, your temperature is above 101 and your wound has increased drainage Follow-up/Referrals: Kaleb Aviles, [Primary Care Provider] - Diet: Regular Addtl Provider Instructions: SPECIAL CARE INSTRUCTIONS: * Cover incisions and change daily for comfort/drainage. * Empty drain 2-3 times per day and record. may use what you normally use for constipation * May use ibuprofen for pain as tolerated. * Expect some swelling and bruising. Call your doctor if: * Temperature above 101 degrees * Pain not relieved by pain medicine ordered * There is increased drainage or redness from any incision * You have any unanswered questions or concerns [phone]. FOLLOW UP VISIT: If not already scheduled, please call the office for a follow-up visit. OFFICE PHONE NUMBER: Dr. Saba Office for this coming Mon or e Prescriptions: New amoxicillin-pot clavulanate [Augmentin] 875-125 mg tablet 1 tab PO BID Qty: 14 RF: 0 Narcan 4 mg/actuation spray,non-aerosol 1 sprays INTNAS ONCE Qty: 2 RF: 0 Continued Mirena 20 mcg/24 hr (5 years) Intrauterine Device 1 applic Intrauterine UD RF: 0 rizatriptan 10 mg tablet,disintegrating 10 mg PO DAILY PRN (Reason: Migraine Headache) RF: 0 trazodone 300 mg tablet 300 mg PO HS RF: 0 topiramate 50 mg tablet 75 mg PO BID RF: 0 duloxetine 60 mg capsule,delayed release(DR/EC) 60 mg PO QAM RF: 0 acetaminophen [Tylenol] 325 mg Capsule 795 mg PO Q6H PRN (Reason: Pain) RF: 0 tizanidine 2 mg tablet 6 mg PO Q6H PRN (Reason: Muscle Spasm) RF: 0 morphine 15 mg tablet extended release 15 mg PO BID PRN (Reason: Pain) RF: 0 oxycodone 30 mg tablet 30 mg PO Q4H PRN (Reason: Pain) RF: 0 Amitiza 8 mcg capsule 8 mcg PO BIDM RF: 0 ondansetron 4 mg tablet,disintegrating 4 mg translingual Q8H PRN (Reason: Nausea) RF: 0 promethazine 25 mg tablet 25 mg PO Q6H PRN (Reason: Nausea) RF: 0 amoxapine 25 mg tablet 25 mg PO QAM RF: 0 Stand-Alone Forms: Call Back Authorization, [facility], Opioid Pain Management [place]/Other Patient Handouts: Surgery Prevent DVT After, Appendicitis, Tube Edgardo Ferguson Drainage Care Discharge Orders: Discharge Order (Routine); Ordered 08/13/18 Ordered By: Dg Pierre Admission Data Admit Date/Time: 08/10/18 01:45 Attending Provider: Lucas Saba Admit Provider: Lucas Saba Primary Care Provider: Kaleb Aviles Other Providers: Charlie Carrion ; Jeffrey Chand Upendra Service: Surgical Services Other Interventions: Discharge Summary Assessment (RN) Last Done: 08/13/18 09:16 DC Date/Time DO NOT enter until pt leaves facility: 08/13/18 10:40
--- NOTE | 2018-08-17 01:38 | Discharge Summary ---
PRINCIPAL DIAGNOSIS: Ruptured appendix. OTHER DIAGNOSIS: Ileus. PROCEDURES: The patient underwent a laparoscopic, then open appendectomy with drainage of intra-abdominal abscess. HISTORY OF PRESENT ILLNESS: The patient is a 37-year-old female presenting to the Emergency Room on 08/09/2018 with acute abdominal pain. She had pain at home and was taking her opiates to try to alleviate the abdominal pain. She was taken to the operating room the early hours of 08/10/2018 where she underwent laparoscopy showing a ruptured appendix with abscess. She then underwent open appendectomy with drainage of intraabdominal abscess and drain placement. Postoperatively, we had some difficulty with pain control because of her prior opiate usage and need for additional narcotics which slowed her GI function to where she developed an ileus, unable to have a bowel movement with dilation of her colon. I did have a Gastroenterology and Pain Therapy help us with her care; the Hospitalist also were helping. Gradually, we were able to give her a suppositories and oral agents to help with her bowel function. She finally was felt stable for discharge on 08/13/2018 with the drains in place to be followed in the surgical clinic within 1 week.
== END 2018-08-13 10:40 | disposition home or self-care (01) | DRG 342 ==
LOC: ED 19:20 → OR 22:54 → 3N 08-10 01:45
DX: I95.9 Hypotension, unspecified; K35.80 Unspecified acute appendicitis; Z79.899 Other long term (current) drug therapy; M54.2 Cervicalgia; K56.7 Ileus, unspecified; M79.661 Pain in right lower leg; F32.9 Major depressive disorder, single episode, unspecified; F11.20 Opioid dependence, uncomplicated; F41.9 Anxiety disorder, unspecified; G89.29 Other chronic pain; R30.0 Dysuria; K59.09 Other constipation

== ENCOUNTER 2018-12-27 20:35 | Inpatient (IN) ==
[2018-12-27] MEDS ORDERED: ONDANSETRON INJ 2 MG/ML 2 ML VIAL IV STA (20:45)
[2018-12-27] MEDS ORDERED: SODIUM CHLORIDE 0.9% 1000ML 1,000 ML IV SCH (20:45)
--- NOTE | 2018-12-27 21:09 | XRay Report ---
XR chest 1V portable CLINICAL HISTORY: Drug overdose COMPARISON STUDY: 03/11/2018 FINDINGS: The heart is normal in size. There are hazy airspace opacities within the left mid to lower lung zone, suspicious for a pneumonia or aspiration. There are postsurgical changes of a thoracoabdo darius spinal rodding. There are bilateral breast implants.[ IMPRESSION: Hazy airspace opacities within the left middle to lower lung zone suspicious for pneumoni a or aspiration. Clinical and radiographic follow-up is recommended. Electronically signed by: Jamie Dougherty M.D. 12/27/2018 9:08 PM
[2018-12-27 21:20] LABS: Appearance Urine Clear (Clear); Bilirubin Urine Negative (Negative); Blood Urine Negative (Negative); Color Urine Yellow; Glucose Urine UA Negative (Negative); Ketones Urine 1+ (Negative); Leukocyte Esterase Urine Negative (Negative); Nitrite Urine Negative (Negative); Protein Urine Negative (Negative); Specific Gravity Urine 1.024 (1.000-1.030); Urobilinogen Urine Negative (Negative); pH Urine 5.5 (4.5-7.5)
--- NOTE | 2018-12-27 21:24 | CT Scan Report ---
CT head/brain wo con CLINICAL HISTORY: Acute change in mental status. Unconsciousness. Possible drug overdose. COMPARISON STUDY: 10/05/2018 TECHNIQUE: Axial CT of the brain is performed from the vertex to the skull base. IV contrast was not administered for this examination. A dose lowering technique was utilized adhering to the principles of ALARA. CT DOSE: 614.27 mGy.cm FINDINGS: No intra or extra-axial mass lesions are visualized. There is no CT evidence of acute cortical infarc tion. There is no evidence of midline shift. There is no acute hemorrhage. No calvarial fractures ar e visualized. There is no evidence of pathologic ventricular dilatation. There is no evidence of acute sinusitis IMPRESSION: No acute intracranial findings Electronically signed by: Jamie Dougherty M.D. 12/27/2018 9:23 PM
[2018-12-27 21:25] LABS: Basophils # (auto) 0.01 K/uL (0-0.2); Basophils % (auto) 0.1 %; Hematocrit (blood only) 47.7 % (37-47); Hemoglobin 17.3 g/dL (12.0-16.0); Immature Granulocytes # (auto) 0.03 K/uL (0.00-0.02); Immature Granulocytes % (auto) 0.2 %; Lymphocytes # (auto) 0.88 K/uL (1.2-3.4); Lymphocytes % (auto) 6.4 %; Mean Corpuscular Hemoglobin 31.9 pg (25-34); Mean Corpuscular Hgb Conc 36.3 g/dL (32-36); Mean Platelet Volume 9.2 fL (7.4-10.4); Monocytes # (auto) 0.48 K/uL (0.11-0.59); Monocytes % (auto) 3.5 %; Neutrophils # (auto) 12.32 K/uL (1.4-6.5); Neutrophils % (auto) 89.8 %; Platelet Count 259 K/uL (130-400); RDW Coefficient of Variation 13.3 % (11.5-14.5); RDW Standard Deviation 42.8 fL (36.4-46.3); Red Blood Count 5.42 M/uL (4.2-5.4); White Blood Count 13.72 K/uL (4.8-10.8)
[2018-12-27 21:33] LABS: INR 1.1 (0.9-1.1); Prothrombin Time 11.3 Seconds (9.0-12.0)
[2018-12-27 21:36] LABS: Amphetamines+Metham, Urine Neg (Neg); Barbiturates, Urine Neg (Neg); Benzodiazepine, Urine Neg (Neg); Cocaine, Urine Neg (Neg); MDMA (Ecstacy), Urine Pos (Neg); Methadone, Urine Neg (Neg); Opiate, Urine Neg (Neg); Phencyclidine, Urine Neg (Neg)
[2018-12-27 21:36] LABS: Base Excess VBG -2.2 mEq/L; Oxygen Saturation VBG 75.5 %; pH VBG 7.44 (7.36-7.41)
[2018-12-27 21:42] LABS: Alanine Aminotransferase 30 U/L (12-78); Albumin Level 4.3 gm/dl (3.4-5.0); Aspartate Aminotransferase 100 U/L (15-37); BUN Creatinine Ratio 22.8 (10-20); Blood Urea Nitrogen 21 mg/dl (7-18); Calcium 9.1 mg/dl (8.5-10.1); Carbon Dioxide 20 mmol/L (21-32); Chloride 109 mmol/L (98-107); Creatinine Clr Calc Pharmacy 72.4 ml/min; Est GFR (African American) 89.1; Est GFR (Non-African American) 76.9; Glucose 119 mg/dl (70-99); Magnesium 2.1 mg/dl (1.8-2.4); Potassium 3.9 mmol/L (3.5-5.1); Pregnancy Test, Serum Negative (Negative); Sodium 139 mmol/L (136-145)
[2018-12-27 21:56] LABS: Albumin Globulin Ratio 1.4 (0.9-2); Alkaline Phosphatase 121 U/L (45-117); Bilirubin,Total 0.6 mg/dl (0.2-1); Creatine Kinase 3334 U/L (26-192); Globulin 3.1 gm/dl (2.5-4.0); Total Protein 7.4 gm/dl (6.4-8.2); Troponin I < 0.015 ng/ml (0-0.045)
[2018-12-27 21:57] LABS: Acetaminophen < 2 ug/ml (10-30)
[2018-12-27 21:58] LABS: Salicylate < 1.7 mg/dl (2.8-20)
[2018-12-27] MEDS ORDERED: LEVOFLOXACIN/D5W 750 MG/150 ML BAG IV STA (22:06)
[2018-12-27] MEDS ORDERED: SODIUM CHLORIDE 0.9% 1000ML 1,000 ML IV ONE (22:06)
--- NOTE | 2018-12-27 22:15 | Emergency Department Note ---
Entered by Tara Kaur acting as a scribe for Jose Juan Funk DO History of Present Illness General Chief complaint: Overdose (Intentional) Time Seen by Provider: 12/27/18 20:45 Source: EMS and other (nursing staff) History of Present Illness Onset (ago): hour(s) (approximately earlier today) Location: head, upper extremity and lower extremity Pain Consistency: + other (after expressing SI for the past few days ) Quality: + other (overdose (intentional)) Associated symptoms: + other (Positive thoughts of SI over the past few days, LOC, surrounded by empty bottles of tizanidine, ambien CR. trazodone, baclofen) The patient is a 38 year old female who presents to the ED with complaints of an intentional overdose. As per nursing staff, the patient was found at home u nconscious today. Nursing staff states the patient has been threatening to kill herself for the past few days. EMS reports the patient was at her friend's house last night and was fine. Nursing staff notes the patient's family did not hear from her today which is not abnormal, but her boyfriend did not hear from her today which is abnormal. Nursing staff reports the patient's family went to her house and found her unconscious surrounded by empty bottles of tizanidine, ambien CR. trazodone, baclofen. Nursing staff reports that they are unsure of what medications the patient took as many of these medications are from the past. They are also unsure of when the medications were taken. Home Medications Home Medications Medication Instructions Recorded Confirmed Type Mirena 20 mcg INTRAUTERINE DIRECTED 03/11/18 12/27/18 History duloxetine 60 mg PO QAM 03/11/18 12/27/18 History rizatriptan 10 mg PO DIRECTED PRN 03/11/18 12/27/18 History topiramate 50 mg PO BID 03/11/18 12/27/18 History trazodone 300 mg PO HS 03/11/18 12/27/18 History amoxapine 25 mg PO QAM 08/09/18 12/27/18 History morphine 15 mg PO BID PRN 08/09/18 12/27/18 History ondansetron 4 mg TRANSLINGUAL Q8H PRN 08/09/18 12/27/18 History promethazine 25 mg PO Q6H PRN 08/09/18 12/27/18 History tizanidine 6 mg PO Q6H PRN 08/09/18 12/27/18 History naloxone [Narcan] 1 spray INTRANASAL DIRECTED PRN 10/04/18 12/27/18 History Allergies Allergy/AdvReac Type Severity Reaction Status Date / Time cefixime Allergy Severe ANAPHYLAXIS Verified 12/27/18 22:57 erythromycin base Allergy Severe HIVES Verified 12/27/18 22:57 sodium benzoate Allergy Severe ANAPHYLAXIS Verified 12/27/18 22:57 Sulfa (Sulfonamide Allergy Intermediate ITCHY Verified 12/27/18 22:57 Antibiotics) procaine AdvReac Severe RAPID Verified 12/27/18 22:57 HEART BEAT Past Med/Surg History Medical History Opioid dependence (Chronic) Chronic constipation (Chronic) Migraine (Chronic) Chronic back pain Depression (Chronic) Anxiety (Chronic) Neck pain (Chronic) Surgical History History of appendectomy (Resolved) History of spinal surgery (Chronic) 02/17/2018 - Arthrodesis spine posterior thoracic. Posterior spinal segmental instrumentation 7 to 12 PSF Social History Preferred Language: Nigerian Communication Ability: Effective Oven Heater Required: No Beliefs That Will Affect Care: None Current Living Situation: Alone Feels Safe at Home: Yes Smoking Status: Current every day smoker Hx Alcohol Use: Yes Hx Substance Use: Yes substance use type: other Substance Use Type Other:: see chart/lab results Last Used Substance: Just Prior to Arrival Review of Systems See HPI for pertinent positives & negatives. and A total of 10 systems reviewed and were otherwise negative Physical Exam Vital Signs Vital Signs - 24 hr 12/27/18 20:40 12/27/18 20:45 12/27/18 21:00 Temperature 36.9 C Temperature Source Oral Sepsis Recent Fever Within 48 Hours No Sepsis Action Taken by Nursing No Action Required Pulse Rate 84 103 H 78 Pulse Rate [Bilateral Apical] Pulse Rate from SpO2 Sensor 100 H 79 Pulse Rhythm Regular Pulse Strength Normal Respiratory Rate 16 15 19 Respiratory Effort / Characteristics Non-Labored Respiratory Depth Normal Respiratory Pattern Regular Blood Pressure 128/90 136/92 140/100 Blood Pressure [Left Arm] Blood Pressure Mean 102 106 113 Blood Pressure Mean [Left Arm] Blood Pressure Position Lying Pulse Oximetry 100 100 100 Oxygen Delivery Method Room Air 12/27/18 21:10 12/27/18 21:24 12/27/18 21:27 Temperature Temperature Source Sepsis Recent Fever Within 48 Hours Sepsis Action Taken by Nursing Pulse Rate 81 85 92 H Pulse Rate [Bilateral Apical] Pulse Rate from SpO2 Sensor 80 90 Pulse Rhythm Pulse Strength Respiratory Rate 19 12 20 Respiratory Effort / Characteristics Respiratory Depth Respiratory Pattern Blood Pressure 141/102 H Blood Pressure [Left Arm] Blood Pressure Mean 115 Blood Pressure Mean [Left Arm] Blood Pressure Position Pulse Oximetry 100 100 Oxygen Delivery Method 12/27/18 21:30 12/27/18 21:40 12/27/18 21:45 Temperature Temperature Source Sepsis Recent Fever Within 48 Hours Sepsis Action Taken by Nursing Pulse Rate 78 100 H 77 Pulse Rate [Bilateral Apical] Pulse Rate from SpO2 Sensor 79 100 H 77 Pulse Rhythm Pulse Strength Respiratory Rate 18 20 17 Respiratory Effort / Characteristics Respiratory Depth Respiratory Pattern Blood Pressure 146/105 H 135/97 Blood Pressure [Left Arm] Blood Pressure Mean 118 109 Blood Pressure Mean [Left Arm] Blood Pressure Position Pulse Oximetry 100 100 100 Oxygen Delivery Method 12/27/18 21:50 12/27/18 22:00 12/27/18 22:10 Temperature Temperature Source Sepsis Recent Fever Within 48 Hours Sepsis Action Taken by Nursing Pulse Rate 80 81 72 Pulse Rate [Bilateral Apical] Pulse Rate from SpO2 Sensor 80 81 71 Pulse Rhythm Pulse Strength Respiratory Rate 17 16 17 Respiratory Effort / Characteristics Respiratory Depth Respiratory Pattern Blood Pressure 133/96 Blood Pressure [Left Arm] Blood Pressure Mean 108 Blood Pressure Mean [Left Arm] Blood Pressure Position Pulse Oximetry 100 100 100 Oxygen Delivery Method 12/27/18 22:15 12/27/18 22:20 12/27/18 22:30 Temperature Temperature Source Sepsis Recent Fever Within 48 Hours Sepsis Action Taken by Nursing Pulse Rate 66 103 H 76 Pulse Rate [Bilateral Apical] Pulse Rate from SpO2 Sensor 67 88 76 Pulse Rhythm Pulse Strength Respiratory Rate 18 15 15 Respiratory Effort / Characteristics Respiratory Depth Respiratory Pattern Blood Pressure 142/97 H 137/95 Blood Pressure [Left Arm] Blood Pressure Mean 112 109 Blood Pressure Mean [Left Arm] Blood Pressure Position Pulse Oximetry 100 100 100 Oxygen Delivery Method 12/27/18 22:40 12/27/18 22:45 12/27/18 23:05 Temperature Temperature Source Sepsis Recent Fever Within 48 Hours Sepsis Action Taken by Nursing Pulse Rate 110 H 80 Pulse Rate [Bilateral Apical] 82 Pulse Rate from SpO2 Sensor 110 H 81 Pulse Rhythm Pulse Strength Respiratory Rate 24 16 20 Respiratory Effort / Characteristics Respiratory Depth Respiratory Pattern Blood Pressure 145/98 H Blood Pressure [Left Arm] 143/104 H Blood Pressure Mean 113 Blood Pressure Mean [Left Arm] 117 Blood Pressure Position Pulse Oximetry 100 100 100 Oxygen Delivery Method Room Air GENERAL: Patient is listless and does not respond to questioning. She minimally responds to pressure stimuli. EYES: The conjunctivae are clear. The pupils are dilated and reactive. EARS, NOSE, MOUTH AND THROAT: Mucous members are dry. NECK: The neck is nontender and supple. RESPIRATORY: Shallow respirations were noted. Rales were noted at both bases. CARDIOVASCULAR: Regular rate and rhythm noted there no murmurs rubs or gallops normal S1 normal S2 GASTROINTESTINAL: The abdomen is soft. Bowel sounds are present in all quadrants. Abdomen is nontender MUSCULOSKELETAL/EXTREMITIES: There is no evidence of gross deformity full range of motion is noted in the hips and shoulders SKIN: There is signs of pressure ulceration on the lower extremities with blis tering of the ankles. There is erythema noted on the back consistent with pressure ulceration. NEUROLOGIC: Patient does not respond to verbal commands. Patellar tendon reflexes are absent bilaterally. PSYCH: Unable to assess at this time. The patient's suicide note was reviewed. Course 2036: Past medical records reviewed. The patient was evaluated in room A3. A complete history and physical exam was performed. 2232: Discussed the patient's case with Dr. Carrion, [facility]. The patient will be evaluated for further management. Administered Medications Ioversol (Optiray 320 100ml) 100 ml IV ONCE PRN PRN Reason: Interaction Checking Stop: 01/01/19 00:56 Last Admin: 12/28/18 00:57 Dose: 93 ml Documented by: [id number] Discontinued Medications Sodium Chloride (Nss 1000ml) 1,000 mls @ 999 mls/hr IV .Q1H1M MITZI Stop: 12/27/18 21:45 Last Infusion: 12/27/18 22:51 Dose: 0 mls/hr Documented by: [id number] Admin: 12/27/18 21:29 Dose: 999 mls/hr Documented by: [id number] Levofloxacin/Dextrose (Levaquin/D5w) 750 mg in 150 mls @ 100 mls/hr IV NOW STA Stop: 12/27/18 23:35 Last Admin: 12/27/18 23:28 Dose: Not Given Documented by: [id number] Sodium Chloride (Nss 1000ml) 1,000 mls @ 999 mls/hr IV .Q1H1M ONE Stop: 12/27/18 23:06 Last Infusion: 12/27/18 23:49 Dose: 0 mls/hr Documented by: [id number] Admin: 12/27/18 22:51 Dose: 999 mls/hr Documented by: [id number] Ampicillin Sodium/Sulbactam Sodium 3,000 mg/ Sodium Chloride 108 mls @ 200 mls/hr IV NOW STA Stop: 12/27/18 23:11 Last Infusion: 12/27/18 23:56 Dose: 0 mls/hr Documented by: [id number] Admin: 12/27/18 23:28 Dose: 200 mls/hr Documented by: [id number] Multivitamins 10 ml/ Thiamine HCl 100 mg/ Folic Acid 1 mg/Sodium Chloride 1,011.2 mls @ 500 mls/hr IV .Q2H2M ONE Stop: 12/28/18 01:30 Last Admin: 12/27/18 23:45 Dose: 500 mls/hr Documented by: [id number] Naloxone HCl (Narcan) 0.4 mg IV NOW STA Stop: 12/27/18 22:44 Last Admin: 12/27/18 23:00 Dose: 0.4 mg Documented by: [id number] Ondansetron HCl (Zofran) 4 mg IV NOW STA Stop: 12/27/18 20:46 Last Admin: 12/27/18 21:37 Dose: 4 mg Documented by: [id number] Medical Decision Making Differential Diagnosis Differential diagnosis: Etiologies such as toxicologic, infection, hypoglycemia, electrolyte abnormalities, cardiac sources, intracerebral event, neurologic, as well as others were entertained. Medical Records Attestation: I reviewed the patient's medical records. Home Medications Current Medication List: was personally reviewed by me Laboratory Data Attestation: I reviewed the patient's lab results. Result diagrams: 12/27/18 21:12 12/27/18 21:11 Lab Results 12/27/18 12/27/18 12/27/18 Range/Units 20:53 20:53 21:11 WBC (4.8-10.8) K/uL RBC (4.2-5.4) M/uL Hgb (12.0-16.0) g/dL Hct (37-47) % MCV (80-100) fL MCH (25-34) pg MCHC (32-36) g/dL RDW Std Deviation (36.4-46.3) fL RDW Coeff of Nelson (11.5-14.5) % Plt Count (130-400) K/uL MPV (7.4-10.4) fL Immature Gran % (Auto) % Neut % (Auto) % Lymph % (Auto) % O'Brien % (Auto) % Eos % (Auto) % Baso % (Auto) % Immature Gran # (Auto) (0.00-0.02) K/uL Neut # (Auto) (1.4-6.5) K/uL Lymph # (Auto) (1.2-3.4) K/uL O'Brien # (Auto) (0.11-0.59) K/uL Eos # (Auto) (0-0.5) K/uL Baso # (Auto) (0-0.2) K/uL PT 11.3 (9.0-12.0) Seconds INR 1.1 (0.9-1.1) VBG pH (7.36-7.41) VBG pCO2 (38-50) mmHg VBG pO2 mmHg VBG HCO3 mmol/L VBG O2 Saturation % VBG Base Excess mEq/L Barometric Pressure mm/Hg Sodium (136-145) mmol/L Potassium (3.5-5.1) mmol/L Chloride (98-107) mmol/L Carbon Dioxide (21-32) mmol/L Anion Gap (3-11) BUN (7-18) mg/dl Creatinine (0.6-1.2) mg/dl Est Cr Clr Drug Dosing ml/min Est GFR ( Amer) Est GFR (Non-Af Amer) BUN/Creatinine Ratio (10-20) Glucose (70-99) mg/dl Lactate (0.4-2.0) mmol/L Calcium (8.5-10.1) mg/dl Magnesium (1.8-2.4) mg/dl Total Bilirubin (0.2-1) mg/dl AST (15-37) U/L ALT (12-78) U/L Alkaline Phosphatase (45-117) U/L Total Creatine Kinase (26-192) U/L Troponin I (0-0.045) ng/ml Total Protein (6.4-8.2) gm/dl Albumin (3.4-5.0) gm/dl Globulin (2.5-4.0) gm/dl Albumin/Globulin Ratio (0.9-2) TSH (0.300-4.500) uIu/ml HCG, Qual (Negative) POC Ur Test NEG (NEG) Salicylates (2.8-20) mg/dl Urine Opiates Screen Neg (Neg) Ur Methadone, Qual Neg (Neg) Acetaminophen (10-30) ug/ml Urine Barbiturates Neg (Neg) Ur Phencyclidine (PCP) Neg (Neg) U Amphetamin/Meth Scrn Neg (Neg) MDMA (Ecstasy) Screen Pos H (Neg) U Benzodiazepines Scrn Neg (Neg) Ur Cocaine Metabolite Neg (Neg) U Marijuana (THC) Screen Neg (Neg) Ethyl Alcohol mg/dL (0-3) mg/dl Influenza Type A (PCR) (Neg) Influenza Type B (PCR) (Neg) 12/27/18 12/27/18 12/27/18 Range/Units 21:11 21:11 21:12 WBC 13.72 H (4.8-10.8) K/uL RBC 5.42 H (4.2-5.4) M/uL Hgb 17.3 H (12.0-16.0) g/dL Hct 47.7 H (37-47) % MCV 88.0 (80-100) fL MCH 31.9 (25-34) pg MCHC 36.3 H (32-36) g/dL RDW Std Deviation 42.8 (36.4-46.3) fL RDW Coeff of Nelson 13.3 (11.5-14.5) % Plt Count 259 (130-400) K/uL MPV 9.2 (7.4-10.4) fL Immature Gran % (Auto) 0.2 % Neut % (Auto) 89.8 % Lymph % (Auto) 6.4 % O'Brien % (Auto) 3.5 % Eos % (Auto) 0.0 % Baso % (Auto) 0.1 % Immature Gran # (Auto) 0.03 H (0.00-0.02) K/uL Neut # (Auto) 12.32 H (1.4-6.5) K/uL Lymph # (Auto) 0.88 L (1.2-3.4) K/uL O'Brien # (Auto) 0.48 (0.11-0.59) K/uL Eos # (Auto) 0.00 (0-0.5) K/uL Baso # (Auto) 0.01 (0-0.2) K/uL PT (9.0-12.0) Seconds INR (0.9-1.1) VBG pH (7.36-7.41) VBG pCO2 (38-50) mmHg VBG pO2 mmHg VBG HCO3 mmol/L VBG O2 Saturation % VBG Base Excess mEq/L Barometric Pressure mm/Hg Sodium 139 (136-145) mmol/L Potassium 3.9 (3.5-5.1) mmol/L Chloride 109 H (98-107) mmol/L Carbon Dioxide 20 L (21-32) mmol/L Anion Gap 10.0 (3-11) BUN 21 H (7-18) mg/dl Creatinine 0.93 (0.6-1.2) mg/dl Est Cr Clr Drug Dosing 72.4 ml/min Est GFR ( Amer) 89.1 Est GFR (Non-Af Amer) 76.9 BUN/Creatinine Ratio 22.8 H (10-20) Glucose 119 H (70-99) mg/dl Lactate (0.4-2.0) mmol/L Calcium 9.1 (8.5-10.1) mg/dl Magnesium 2.1 (1.8-2.4) mg/dl Total Bilirubin 0.6 (0.2-1) mg/dl AST 100 H (15-37) U/L ALT 30 (12-78) U/L Alkaline Phosphatase 121 H (45-117) U/L Total Creatine Kinase 3334 H (26-192) U/L Troponin I < 0.015 (0-0.045) ng/ml Total Protein 7.4 (6.4-8.2) gm/dl Albumin 4.3 (3.4-5.0) gm/dl Globulin 3.1 (2.5-4.0) gm/dl Albumin/Globulin Ratio 1.4 (0.9-2) TSH 1.130 (0.300-4.500) uIu/ml HCG, Qual Negative (Negative) POC Ur Test (NEG) Salicylates (2.8-20) mg/dl Urine Opiates Screen (Neg) Ur Methadone, Qual (Neg) Acetaminophen (10-30) ug/ml Urine Barbiturates (Neg) Ur Phencyclidine (PCP) (Neg) U Amphetamin/Meth Scrn (Neg) MDMA (Ecstasy) Screen (Neg) U Benzodiazepines Scrn (Neg) Ur Cocaine Metabolite (Neg) U Marijuana (THC) Screen (Neg) Ethyl Alcohol mg/dL (0-3) mg/dl Influenza Type A (PCR) (Neg) Influenza Type B (PCR) (Neg) 12/27/18 12/27/18 12/27/18 Range/Units 21:12 21:12 21:12 WBC (4.8-10.8) K/uL RBC (4.2-5.4) M/uL Hgb (12.0-16.0) g/dL Hct (37-47) % MCV (80-100) fL MCH (25-34) pg MCHC (32-36) g/dL RDW Std Deviation (36.4-46.3) fL RDW Coeff of Nelson (11.5-14.5) % Plt Count (130-400) K/uL MPV (7.4-10.4) fL Immature Gran % (Auto) % Neut % (Auto) % Lymph % (Auto) % O'Brien % (Auto) % Eos % (Auto) % Baso % (Auto) % Immature Gran # (Auto) (0.00-0.02) K/uL Neut # (Auto) (1.4-6.5) K/uL Lymph # (Auto) (1.2-3.4) K/uL O'Brien # (Auto) (0.11-0.59) K/uL Eos # (Auto) (0-0.5) K/uL Baso # (Auto) (0-0.2) K/uL PT (9.0-12.0) Seconds INR (0.9-1.1) VBG pH 7.44 H (7.36-7.41) VBG pCO2 31 L (38-50) mmHg VBG pO2 36 mmHg VBG HCO3 21 mmol/L VBG O2 Saturation 75.5 % VBG Base Excess -2.2 mEq/L Barometric Pressure 735.8 mm/Hg Sodium (136-145) mmol/L Potassium (3.5-5.1) mmol/L Chloride (98-107) mmol/L Carbon Dioxide (21-32) mmol/L Anion Gap (3-11) BUN (7-18) mg/dl Creatinine (0.6-1.2) mg/dl Est Cr Clr Drug Dosing ml/min Est GFR ( Amer) Est GFR (Non-Af Amer) BUN/Creatinine Ratio (10-20) Glucose (70-99) mg/dl Lactate (0.4-2.0) mmol/L Calcium (8.5-10.1) mg/dl Magnesium (1.8-2.4) mg/dl Total Bilirubin (0.2-1) mg/dl AST (15-37) U/L ALT (12-78) U/L Alkaline Phosphatase (45-117) U/L Total Creatine Kinase (26-192) U/L Troponin I (0-0.045) ng/ml Total Protein (6.4-8.2) gm/dl Albumin (3.4-5.0) gm/dl Globulin (2.5-4.0) gm/dl Albumin/Globulin Ratio (0.9-2) TSH (0.300-4.500) uIu/ml HCG, Qual (Negative) POC Ur Test (NEG) Salicylates < 1.7 L (2.8-20) mg/dl Urine Opiates Screen (Neg) Ur Methadone, Qual (Neg) Acetaminophen < 2 L (10-30) ug/ml Urine Barbiturates (Neg) Ur Phencyclidine (PCP) (Neg) U Amphetamin/Meth Scrn (Neg) MDMA (Ecstasy) Screen (Neg) U Benzodiazepines Scrn (Neg) Ur Cocaine Metabolite (Neg) U Marijuana (THC) Screen (Neg) Ethyl Alcohol mg/dL < 3.0 (0-3) mg/dl Influenza Type A (PCR) (Neg) Influenza Type B (PCR) (Neg) 12/27/18 12/27/18 Range/Units 23:27 23:30 WBC (4.8-10.8) K/uL RBC (4.2-5.4) M/uL Hgb (12.0-16.0) g/dL Hct (37-47) % MCV (80-100) fL MCH (25-34) pg MCHC (32-36) g/dL RDW Std Deviation (36.4-46.3) fL RDW Coeff of Nelson (11.5-14.5) % Plt Count (130-400) K/uL MPV (7.4-10.4) fL Immature Gran % (Auto) % Neut % (Auto) % Lymph % (Auto) % O'Brien % (Auto) % Eos % (Auto) % Baso % (Auto) % Immature Gran # (Auto) (0.00-0.02) K/uL Neut # (Auto) (1.4-6.5) K/uL Lymph # (Auto) (1.2-3.4) K/uL O'Brien # (Auto) (0.11-0.59) K/uL Eos # (Auto) (0-0.5) K/uL Baso # (Auto) (0-0.2) K/uL PT (9.0-12.0) Seconds INR (0.9-1.1) VBG pH (7.36-7.41) VBG pCO2 (38-50) mmHg VBG pO2 mmHg VBG HCO3 mmol/L VBG O2 Saturation % VBG Base Excess mEq/L Barometric Pressure mm/Hg Sodium (136-145) mmol/L Potassium (3.5-5.1) mmol/L Chloride (98-107) mmol/L Carbon Dioxide (21-32) mmol/L Anion Gap (3-11) BUN (7-18) mg/dl Creatinine (0.6-1.2) mg/dl Est Cr Clr Drug Dosing ml/min Est GFR ( Amer) Est GFR (Non-Af Amer) BUN/Creatinine Ratio (10-20) Glucose (70-99) mg/dl Lactate 1.6 (0.4-2.0) mmol/L Calcium (8.5-10.1) mg/dl Magnesium (1.8-2.4) mg/dl Total Bilirubin (0.2-1) mg/dl AST (15-37) U/L ALT (12-78) U/L Alkaline Phosphatase (45-117) U/L Total Creatine Kinase (26-192) U/L Troponin I (0-0.045) ng/ml Total Protein (6.4-8.2) gm/dl Albumin (3.4-5.0) gm/dl Globulin (2.5-4.0) gm/dl Albumin/Globulin Ratio (0.9-2) TSH (0.300-4.500) uIu/ml HCG, Qual (Negative) POC Ur Test (NEG) Salicylates (2.8-20) mg/dl Urine Opiates Screen (Neg) Ur Methadone, Qual (Neg) Acetaminophen (10-30) ug/ml Urine Barbiturates (Neg) Ur Phencyclidine (PCP) (Neg) U Amphetamin/Meth Scrn (Neg) MDMA (Ecstasy) Screen (Neg) U Benzodiazepines Scrn (Neg) Ur Cocaine Metabolite (Neg) U Marijuana (THC) Screen (Neg) Ethyl Alcohol mg/dL (0-3) mg/dl Influenza Type A (PCR) Neg for Influ A (Neg) Influenza Type B (PCR) Neg for Influ B (Neg) Imaging Data Radiologist's Impression: Radiology results as stated below per my review and the radiologist's interpretation: XR chest 1V portable CLINICAL HISTORY: Drug overdose COMPARISON STUDY: 03/11/2018 FINDINGS: The heart is normal in size. There are hazy airspace opacities within the left mid to lower lung zone, suspicious for a pneumonia or aspiration. There are postsurgical changes of a thoracoabdominal spinal rodding. There are bilateral breast implants.[ IMPRESSION: Hazy airspace opacities within the left middle to lower lung zone suspicious for pneumonia or aspiration. Clinical and radiographic follow-up is recommended. Electronically signed by: Jamie Dougherty M.D. 12/27/2018 9:[address] head/brain wo con CLINICAL HISTORY: Acute change in mental status. Unconsciousness. Possible drug overdose. COMPARISON STUDY: 10/05/2018 TECHNIQUE: Axial CT of the brain is performed from the vertex to the skull base. IV contrast was not administered for this examination. A dose lowering technique was utilized adhering to the principles of ALARA. CT DOSE: 614.27 mGy.cm FINDINGS: No intra or extra-axial mass lesions are visualized. There is no CT evidence of acute cortical infarction. There is no evidence of midline shift. There is no ac jewell hemorrhage. No calvarial fractures are visualized. There is no evidence of pathologic ventricular dilatation. There is no evidence of acute sinusitis IMPRESSION: No acute intracranial findings Electronically signed by: Jamie Dougherty M.D. 12/27/2018 9:23 PM ECG Data Attestation: I personally reviewed and interpreted this ECG as follows: Indication: other (overdose) Rate (beats per minute): 89 Rhythm: normal sinus Findings: + Q waves (Anterior) and + ST depression (Lateral and inferior) Comparison ECG Date: from (02/04/16) Change: the following changes noted (changes are new) Blood Pressure Blood Pressure Findings: Elevated blood pressure Blood Pressure Disposition: further management by hospitalist MDM Narrative The patient is a 38-year-old female who presented to the emergency department after a suicidal gesture. There was a suicide note found on the scene. The patient is on multiple prescription medications and and it is unclear what exact medications the patient took. The patient was treated with IV fluids. The patient was also treated with IV antibiotics for presumed aspiration noted on chest x-ray. The patient had signs of pressure ulceration on her skin. The patient did not appear to have significant CO2 retention or acidosis. There is no significant hypoxia the patient only required minimal supplemental oxygen at times. The patient was reevaluated multiple times and on subsequent reevaluat ion had some improvement in her mental status. She received Narcan prior to arrival without improvement of her symptoms. I discussed patient's laboratory and radiographic studies with her family members. I discussed her case also with the on-call [facility] hospitalist group. They have agreed to evaluate the patient in the emergency department for further management disposition. Impression & Plan Overdose, Depression, Suicidal ideation, Suicide gesture, Rhabdomyolysis, Aspiration into airway Critical Care Time Critical Care Time: Yes Total Critical Care Time: 45 I have personally spent 45 minutes of critical care time in the direct management of this patient. This includes bedside care, interpretation of diagnostic studies, and testing, discussion with consultants, patient, and family members, and other required patient management activities. This 45 minutes is in excess of all separately billable procedures. Discharge Plan Visit Data *Final* Discharge Date/Time: 12/28/18 00:09 Chief Complaint: Overdose (Intentional) ED Provider: Jose Juan Funk Discharge Problem: Overdose, Depression, Suicidal ideation, Suicide gesture, Rhabdomyolysis, Aspiration into airway Patient Disposition: Admitted As Inpatient Discharge Instructions Interventions: ED Discharge Assessment Last Done: 12/28/18 00:09 Discharge Problem: Overdose Qualifiers: Encounter type: initial encounter Injury intent: intentional self-harm Qualified Code(s): T50.902A - Poisoning by unspecified drugs, medicaments and biological substances, intentional self-harm, initial encounter Depression Qualifiers: Depression Type: unspecified Qualified Code(s): F32.9 - Major depressive disorder, single episode, unspecified Suicide gesture Qualifiers: Encounter type: initial encounter Qualified Code(s): X83.8XXA - Intentional self-harm by other specified means, initial encounter Rhabdomyolysis Qualifiers: Rhabdomyolysis type: non-traumatic Qualified Code(s): M62.82 - Rhabdomyolysis Aspiration into airway Qualifiers: Encounter type: initial encounter Qualified Code(s): T17.908A - Unspecified foreign body in respiratory tract, part unspecified causing other injury, initial encounter The scribe's documentation has been prepared under my direction and personally reviewed by me in its entirety. I confirm that the note above accurately reflects all work, treatment, procedures, and medical decision making performed by me.
[2018-12-27] MEDS ORDERED: AMPICILLIN/SULBACTAM SOD 3,000 MG in 0.9 % SODIUM CHLORIDE 100 ML IV STA (22:39)
[2018-12-27] MEDS ORDERED: NALOXONE HCL 0.4 MG/1 ML VIAL/CARP IV STA (22:43)
[2018-12-27] MEDS ORDERED: MULTI-VITAMIN INFUSION 10 ML, THIAMINE HCL 100 MG, FOLIC ACID 1 MG in SODIUM CHLORIDE 0... IV ONE (23:29)
--- NOTE | 2018-12-27 23:30 | History & Physical Report ---
Date of Service December 27, 2018 Assessment & Plan (1) Sepsis: Secondary to likely aspiration pneumonia secondary to intentional drug overdose secondary to suicidality Rule out spine infection as alternative source of sepsis (hx worsening back pain as per family account, hx scoliosis surgery) Rhabdomyolysis related to drug overdose mood disorder, likely suboptimal given suicide attempt /impulsivity hypothyroidism, euthyroid as of today's TSH alcohol abuse as per family history opioid dependence as per records past tobacco abuse. Medical telemetry Cultures, check lactic acid Unasyn CT lumbar spine RE worsening back pain, history surgery May need MRI spine definitely rule out infection if CT imaging unremarkable Appropriate to hold home neuropsychotropic/muscle relaxant meds for now Suicide precautions Psych consult RE suicidality IVF, follow CPK DT precautions DVT prophylaxis. Lovenox subcu Full code Patient's family requesting updates from providers. Ms. Nay Kaur (mother), contact #[phone]. Ms. Esther Wheat (sister), contact #[phone]. History of Present Illness Chief Complaint: Overdose as per records Primary Care Provider: Kaleb katr, DO History obtained from family and records. Limited history from patient secondary to obtunded state. Medical history significant for mood disorder, hypothyroidism, chronic back pain status post scoliosis surgery, chronic idiopathic constipation on lubiprostone, alcohol abuse as per family, history opioid dependence as per records, skin cancer as per records, past tobacco abuse. Recent confinement July 2018 under [facility] for perforated appendicitis with abscess status post surgery. Recent confinement [place] October 2018 under [facility] service for intractable back pain. MRI lumbar spine at that time showed decreased size of rim-enhancing fluid collection associated with inferior margin of posterior fusion hardware and subcutaneous tissues, a very seroma given decreasing size. Worsening back pain in the last month as per family. Patient admitted to mother that she was crushing oxycodone prescription and snorting them to have faster relief of pain. Mother reported above drug abuse behavior to patient's providers. Professional help recommended. payroll accounting specialist recommended imaging for worsening back pain which patient has yet to comply with. Patient had verbalized to mother a few days ago that back pain was intolerable and she was attempted to take her home medications to end everything. Patient's family got worried today after not hearing from patient. Family found patient unconscious on the sofa surrounded by empty bottles of tizanidine, Ambien, trazodone, baclofen prescription medications. A suicide note addressed to patient's son was also found Some emesis noted at home as per family. No response to Narcan given by EMS. Medical History as above Surgical History : D&C, breast biopsy, cervical procedures, breast augmentation, nasal endoscopy, back surgery, appendectomy, dental surgery, Family History : Thyroid cancer, diabetes, heart disease Personal/Social history : Past tobacco abuse, alcohol abuse as per family, disabled Allergies Allergy/AdvReac Type Severity Reaction Status Date / Time cefixime Allergy Severe ANAPHYLAXIS Verified 12/27/18 22:57 erythromycin base Allergy Severe HIVES Verified 12/27/18 22:57 sodium benzoate Allergy Severe ANAPHYLAXIS Verified 12/27/18 22:57 Sulfa (Sulfonamide Allergy Intermediate ITCHY Verified 12/27/18 22:57 Antibiotics) procaine AdvReac Severe RAPID Verified 12/27/18 22:57 HEART BEAT Home Medications Home Medications Medication Instructions Recorded Confirmed Type Mirena 20 mcg INTRAUTERINE DIRECTED 03/11/18 12/27/18 History duloxetine 60 mg PO QAM 03/11/18 12/27/18 History rizatriptan 10 mg PO DIRECTED PRN 03/11/18 12/27/18 History topiramate 50 mg PO BID 03/11/18 12/27/18 History trazodone 300 mg PO HS 03/11/18 12/27/18 History amoxapine 25 mg PO QAM 08/09/18 12/27/18 History morphine 15 mg PO BID PRN 08/09/18 12/27/18 History ondansetron 4 mg TRANSLINGUAL Q8H PRN 08/09/18 12/27/18 History promethazine 25 mg PO Q6H PRN 08/09/18 12/27/18 History tizanidine 6 mg PO Q6H PRN 08/09/18 12/27/18 History naloxone [Narcan] 1 spray INTRANASAL DIRECTED PRN 10/04/18 12/27/18 History Past Med/Surg History Medical History Opioid dependence (Chronic) Chronic constipation (Chronic) Migraine (Chronic) Chronic back pain Depression (Chronic) Anxiety (Chronic) Neck pain (Chronic) Surgical History History of appendectomy (Resolved) History of spinal surgery (Chronic) 02/17/2018 - Arthrodesis spine posterior thoracic. Posterior spinal segmental instrumentation 7 to 12 PSF Social History Preferred Language: Indonesian Communication Ability: Effective Quarter Seamer Required: No Beliefs That Will Affect Care: None Current Living Situation: Alone Feels Safe at Home: Yes Smoking Status: Current every day smoker Hx Alcohol Use: Yes Hx Substance Use: Yes substance use type: other Substance Use Type Other:: see chart/lab results Last Used Substance: Just Prior to Arrival Review of Systems Review of Systems: Could not be reliably obtained Physical Exam Physical Exam: GENERAL: Obtunded, occasionally moaning, no respiratory distress SKIN: Normal color, warm HEENT: [place] palpebral conjunctivae, no ptosis, mouth open, dry buccal mucosa NECK : Supple, no tenderness CHEST : Decreased breath sounds, rhonchi on the right, no tenderness HEART : RRR, no obvious murmurs ABDOMEN: Soft, nontender EXTREMITIES : No LE swelling/tenderness, no other conspicuous deformities noted NEUROLOGIC : Obtunded, no facial asymmetry, no other gross focality Results & Data Vital Signs (Past 12 Hours) Vital Signs Temp Pulse Pulse Resp BP BP Pulse Ox 12/27/18 23:05 82 20 143/104 H 100 12/27/18 22:45 80 16 145/98 H 100 12/27/18 22:40 110 H 24 100 12/27/18 22:30 76 15 137/95 100 12/27/18 22:20 103 H 15 100 12/27/18 22:15 66 18 142/97 H 100 12/27/18 22:10 72 17 100 12/27/18 22:00 81 16 133/96 100 12/27/18 21:50 80 17 100 12/27/18 21:45 77 17 135/97 100 12/27/18 21:40 100 H 20 146/105 H 100 12/27/18 21:30 78 18 100 12/27/18 21:27 92 H 20 141/102 H 100 12/27/18 21:24 85 12 12/27/18 21:10 81 19 100 12/27/18 21:00 78 19 140/100 100 12/27/18 20:45 103 H 15 136/92 100 12/27/18 20:40 36.9 C 84 16 128/90 100 Laboratory Results Laboratory Results WBC 13.72 K/uL (4.8-10.8) H 12/27/18 21:12 RBC 5.42 M/uL (4.2-5.4) H 12/27/18 21:12 Hgb 17.3 g/dL (12.0-16.0) H 12/27/18 21:12 Hct 47.7 % (37-47) H 12/27/18 21:12 MCV 88.0 fL (80-100) 12/27/18 21:12 MCH 31.9 pg (25-34) 12/27/18 21:12 MCHC 36.3 g/dL (32-36) H 12/27/18 21:12 RDW Std Deviation 42.8 fL (36.4-46.3) 12/27/18 21:12 RDW Coeff of Nelson 13.3 % (11.5-14.5) 12/27/18 21:12 Plt Count 259 K/uL (130-400) 12/27/18 21:12 MPV 9.2 fL (7.4-10.4) 12/27/18 21:12 Immature Gran % (Auto) 0.2 % 12/27/18 21:12 Neut % (Auto) 89.8 % 12/27/18 21:12 Lymph % (Auto) 6.4 % 12/27/18 21:12 [place] % (Auto) 3.5 % 12/27/18 21:12 Eos % (Auto) 0.0 % 12/27/18 21:12 Baso % (Auto) 0.1 % 12/27/18 21:12 Immature Gran # (Auto) 0.03 K/uL (0.00-0.02) H 12/27/18 21:12 Neut # (Auto) 12.32 K/uL (1.4-6.5) H 12/27/18 21:12 Lymph # (Auto) 0.88 K/uL (1.2-3.4) L 12/27/18 21:12 [place] # (Auto) 0.48 K/uL (0.11-0.59) 12/27/18 21:12 Eos # (Auto) 0.00 K/uL (0-0.5) 12/27/18 21:12 Baso # (Auto) 0.01 K/uL (0-0.2) 12/27/18 21:12 PT 11.3 Seconds (9.0-12.0) 12/27/18 21:11 INR 1.1 (0.9-1.1) 12/27/18 21:11 VBG pH 7.44 (7.36-7.41) H 12/27/18 21:12 VBG pCO2 31 mmHg (38-50) L 12/27/18 21:12 VBG pO2 36 mmHg 12/27/18 21:12 VBG HCO3 21 mmol/L 12/27/18 21:12 VBG O2 Saturation 75.5 % 12/27/18 21:12 VBG Base Excess -2.2 mEq/L 12/27/18 21:12 Barometric Pressure 735.8 mm/Hg 12/27/18 21:12 Sodium 139 mmol/L (136-145) 12/27/18 21:11 Potassium 3.9 mmol/L (3.5-5.1) 12/27/18 21:11 Chloride 109 mmol/L (98-107) H 12/27/18 21:11 Carbon Dioxide 20 mmol/L (21-32) L 12/27/18 21:11 Anion Gap 10.0 (3-11) 12/27/18 21:11 BUN 21 mg/dl (7-18) H 12/27/18 21:11 Creatinine 0.93 mg/dl (0.6-1.2) 12/27/18 21:11 Est Cr Clr Drug Dosing 72.4 ml/min 12/27/18 21:11 Est GFR ( Amer) 89.1 12/27/18 21:11 Est GFR (Non-Af Amer) 76.9 12/27/18 21:11 BUN/Creatinine Ratio 22.8 (10-20) H 12/27/18 21:11 Glucose 119 mg/dl (70-99) H 12/27/18 21:11 Calcium 9.1 mg/dl (8.5-10.1) 12/27/18 21:11 Magnesium 2.1 mg/dl (1.8-2.4) 12/27/18 21:11 Total Bilirubin 0.6 mg/dl (0.2-1) 12/27/18 21:11 AST 100 U/L (15-37) H 12/27/18 21:11 ALT 30 U/L (12-78) 12/27/18 21:11 Alkaline Phosphatase 121 U/L (45-117) H 12/27/18 21:11 Total Creatine Kinase 3334 U/L (26-192) H 12/27/18 21:11 Troponin I < 0.015 ng/ml (0-0.045) 12/27/18 21:11 Total Protein 7.4 gm/dl (6.4-8.2) 12/27/18 21:11 Albumin 4.3 gm/dl (3.4-5.0) 12/27/18 21:11 Globulin 3.1 gm/dl (2.5-4.0) 12/27/18 21:11 Albumin/Globulin Ratio 1.4 (0.9-2) 12/27/18 21:11 TSH 1.130 uIu/ml (0.300-4.500) 12/27/18 21:11 HCG, Qual Negative (Negative) 12/27/18 21:11 Urine Color Yellow 12/27/18 Unknown Urine Appearance Clear (Clear) 12/27/18 Unknown Urine pH 5.5 (4.5-7.5) 12/27/18 Unknown Ur Specific [place] 1.024 (1.000-1.030) 12/27/18 Unknown Urine Protein Negative (Negative) 12/27/18 Unknown Urine Glucose (UA) Negative (Negative) 12/27/18 Unknown Urine Ketones 1+ (Negative) H 12/27/18 Unknown Urine Blood Negative (Negative) 12/27/18 Unknown Urine Nitrite Negative (Negative) 12/27/18 Unknown Urine Bilirubin Negative (Negative) 12/27/18 Unknown Urine Urobilinogen Negative (Negative) 12/27/18 Unknown Ur Leukocyte Esterase Negative (Negative) 12/27/18 Unknown POC Ur Test NEG (NEG) 12/27/18 20:53 Salicylates < 1.7 mg/dl (2.8-20) L 12/27/18 21:12 Urine Opiates Screen Neg (Neg) 12/27/18 20:53 Ur Methadone, Qual Neg (Neg) 12/27/18 20:53 Acetaminophen < 2 ug/ml (10-30) L 12/27/18 21:12 Urine Barbiturates Neg (Neg) 12/27/18 20:53 Ur Phencyclidine (PCP) Neg (Neg) 12/27/18 20:53 U Amphetamin/Meth Scrn Neg (Neg) 12/27/18 20:53 MDMA (Ecstasy) Screen Pos (Neg) H 12/27/18 20:53 U Benzodiazepines Scrn Neg (Neg) 12/27/18 20:53 Ur Cocaine Metabolite Neg (Neg) 12/27/18 20:53 U Marijuana (THC) Screen Neg (Neg) 12/27/18 20:53 Ethyl Alcohol mg/dL < 3.0 mg/dl (0-3) 12/27/18 21:[address] head: No acute intracranial findings Chest x-ray : Hazy airspace opacities within the left middle to lower lung zone suspicious for pneumonia or aspiration. Clinical and radiographic follow-up is recommended. EKG as per my interpretation : rate 90, NSR, normal axis, septal infarct, ST depression inferior leads
[2018-12-28 00:19] LABS: Influenza A virus by PCR Neg for Influ A (Neg); Influenza B virus by PCR Neg for Influ B (Neg)
[2018-12-28] MEDS ORDERED: LORazepam 3 MG/6 ML VIAL IV PRN (00:29)
[2018-12-28] MEDS ORDERED: LORazepam 2 MG/4 ML VIAL IV PRN (00:29)
[2018-12-28] MEDS ORDERED: PROMETHAZINE HCL 12.5 MG in SODIUM CHLORIDE 0.9% 50 ML IV PRN (00:29)
[2018-12-28] MEDS ORDERED: ATIVAN IV ALCOHOL WITHDRAWL IV SCH (00:29)
[2018-12-28] MEDS ORDERED: LORazepam 1 MG/2 ML VIAL IV PRN (00:29)
[2018-12-28] MEDS ORDERED: IOVERSOL 100ml IV PRN (00:57)
[2018-12-28] MEDS: LACTATED RINGER'S 1,000 ML IV SCH ×5 (02:51→23:36)
[2018-12-28] MEDS: LIDOCAINE 5% 1 PATCH TD SCH (05:32)
[2018-12-28] MEDS: AMPICILLIN/SULBACTAM SOD 3,000 MG in 0.9 % SODIUM CHLORIDE 100 ML IV SCH ×3 (05:42→18:14)
--- NOTE | 2018-12-28 07:01 | CT Scan Report ---
CT OF THE LUMBAR SPINE WITH CONTRAST CLINICAL HISTORY: sepsis, worsening back pain COMPARISON STUDY: CT of the abdomen and pelvis October 05, 2018. TECHNIQUE: Axial images of the lumbar spine were obtained following intravenous injection of 93 cc of Optiray 320 IV. Sagittal and coronal reconstructions were viewed. Study was performed utilizing auto mated exposure control for dose reduction and according to ALARA principles. FINDINGS: Thoracolumbar spine fusion is partially imaged on this examination with pedicles screws vis ualized at the L1 and L2 levels. Visualized portions of the hardware are intact. There is mild levosc oliosis of the lumbar spine. A multilevel posterior decompression is noted. The central canal and jcarlos ral foramen are suboptimally assessed by CT as well as streak artifact from the surgical hardware. Pa ravertebral soft tissues are unremarkable. There is no acute lumbar spine fracture. Sacroiliac joints are intact. There is a 2 mm right renal calculus. The L2 fracture shown on exam of October 05, 2018 ramirez s healed. IMPRESSION: 1. Partial visualization of a thoracolumbar spine fusion. Visualized portions of the hardware is inta ct. 2. No acute lumbar spine fracture or subluxation. Healed L2 fracture. 3. Suboptimal evaluation of the central canal and neural foramen, particularly within the upper lumba r spine given streak artifact from hardware. Electronically signed by: Zenon Drummond M.D. 12/28/2018 7:00 AM
[2018-12-28 07:15] LABS: Basophils # (auto) 0.02 K/uL (0-0.2); Basophils % (auto) 0.2 %; Eosinophils # (auto) 0.01 K/uL (0-0.5); Eosinophils % (auto) 0.1 %; Immature Granulocytes # (auto) 0.03 K/uL (0.00-0.02); Immature Granulocytes % (auto) 0.3 %; Lymphocytes # (auto) 2.15 K/uL (1.2-3.4); Lymphocytes % (auto) 19.8 %; Mean Corpuscular Hemoglobin 30.6 pg (25-34); Mean Corpuscular Hgb Conc 34.1 g/dL (32-36); Mean Corpuscular Volume 89.7 fL (80-100); Mean Platelet Volume 9.6 fL (7.4-10.4); Monocytes # (auto) 0.97 K/uL (0.11-0.59); Monocytes % (auto) 8.9 %; Neutrophils # (auto) 7.69 K/uL (1.4-6.5); Neutrophils % (auto) 70.7 %; Platelet Count 210 K/uL (130-400); RDW Coefficient of Variation 13.2 % (11.5-14.5); RDW Standard Deviation 42.9 fL (36.4-46.3); Red Blood Count 4.57 M/uL (4.2-5.4); White Blood Count 10.87 K/uL (4.8-10.8)
[2018-12-28 08:01] LABS: Albumin Level 3.3 gm/dl (3.4-5.0); BUN Creatinine Ratio 18.1 (10-20); Calcium 8.3 mg/dl (8.5-10.1); Creatinine Clr Calc Pharmacy 87.4 ml/min; Est GFR (African American) 111.9; Est GFR (Non-African American) 96.6; Potassium 3.8 mmol/L (3.5-5.1)
[2018-12-28 08:12] LABS: Albumin Globulin Ratio 1.2 (0.9-2); Bilirubin,Total 0.8 mg/dl (0.2-1); Globulin 2.7 gm/dl (2.5-4.0)
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
[2018-12-28] MEDS ORDERED: AMPICILLIN/SULBACTAM CONSULT ACTIVE PRN (09:00)
[2018-12-28] MEDS: ENOXAPARIN INJ 30 MG/0.3 ML SYR SQ SCH (09:30)
[2018-12-28] MEDS: FOLIC ACID 1 MG TAB PO SCH (09:30)
[2018-12-28] MEDS: THIAMINE HCL 100 MG TAB PO SCH (09:31)
[2018-12-28] MEDS: MULTIVITAMIN TAB PO SCH (09:31)
--- NOTE | 2018-12-28 12:21 | Hospitalist Progress Note ---
Date of Service December 28, 2018 Assessment & Plan (1) Intentional drug overdose: She was found unresponsive by family member at home received 2 dose of Narcan with no effect Patient admitted after taking multiple medications" several Cymbaltas Empty bottles found near the patient were reportedly labeled as trazodone, baclofen, tizanidine, and Ambien Patient also left a suicide note addressed to her 17 yo son 302 warrant was completed by [employer] police, and petitioning statement is on chart. Patient treated in medical telemetry floor with conservative approach with IV fluids For possible aspiration pneumonia Patient is awake this morning, still groggy Occasional slurred speech Wants to leave hospital right now, Multiple counseling provided by myself, psychiatrically has been and patient's family sister and mother Patient willing to stay Appreciate input from psychiatry Patient will need inpatient psychiatric admission after medically stable Patient had one admission at 3 . 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 Partial visualization of a thoracolumbar spine fusion. Visualized portions of the hardware is intact. 2. No acute lumbar spine fracture or subluxation. Healed L2 fracture. 3. Suboptimal evaluation of the central canal and neural foramen, particularly within the upper lumbar spine given streak artifact from hardware. She will continue to follow-up with orthopedics as an outpatient for her ongoing back pain LEFT MIDDLE LOBE PNEUMONIA: Chest x-ray shows left middle lobe infiltrate concerning for aspiration No evidence of sepsis, normal lactic acid patient is afebrile, vitals stable Started on IV Unasyn Patient developed diffuse drug rash Antibiotic changed to doxycycline/Unasyn added to patient's allergy list CODE STATUS: Full code DVT prophylaxis: Subcu Lovenox Disposition: Continue to monitor medical surgical floor Discharge to 3 S. inpatient psych unit when medically stable Subjective Patient still remains confused, having word finding difficulties, awake, very irritated , agitated wants to leave right now-wants to sign out AMA She is completed, a 302 patient was placed by police in the ER on admission attempt suicide,/self-harm Will not be able to sign out AMA Has been afebrile with stable vitals, no cough Family members, mother and sister present at bedside, She has been very combative accusing them of spreading rumors that she "wanted to commit suicide" apparently that is not the truth, She just took all those medications to stop the pain Psychiatry team asked to come and provide counseling to the patient Physical Exam Constitutional: WD/WN, vitals as above + intoxicated appearing (Confused, repeating words, word finding difficulty) Eyes: + anicteric sclerae ENMT: external ear and nose normal, oropharynx normal Neck: trachea midline, no thyromegaly Respiratory: no respiratory distress and no cough Auscultation: no crackles, no rales and no wheezes Cardiovascular: RRR, no murmur, no edema Gastrointestinal (Abdomen): Percussion/Palpation: abdomen soft; abdomen nontender Musculoskeletal: no cyanosis or clubbing, extremities motor strength 5/5 Skin: + rash (Diffuse maculopapular rash noted on arms and torso-started since administration of IV Unasyn) Neurologic: PERRL, EOMI, accommodation nl, no face palsy, no dysarthria Psychiatric: Orientation: alert Affect: + anxious affect Mood: + irritable mood Insight: + poor insight Judgement: + poor judgement Results & Data Vital Signs (Past 12 Hours) Vital Signs Temp Pulse Pulse Pulse Resp BP BP 12/28/18 11:21 36.7 C 80 18 144/95 H 12/28/18 10:57 60 12/28/18 07:00 36.8 C 60 20 149/83 H 12/28/18 04:45 60 146/94 H 12/28/18 04:36 91 H 12/28/18 04:10 150/98 H 12/28/18 03:25 36.3 C L 82 20 153/90 H 12/28/18 00:30 36.4 C L 77 14 136/91 Pulse Ox 12/28/18 11:21 100 12/28/18 10:57 12/28/18 07:00 100 12/28/18 04:45 12/28/18 04:36 12/28/18 04:10 12/28/18 03:25 100 12/28/18 00:30 100 (1) Opioid dependence Substance use status: with unspecified opioid-induced disorder Qualified Code(s): F11.29 - Opioid dependence with unspecified opioid-induced disorder (2) Intentional drug overdose Encounter type: initial encounter Qualified Code(s): T50.902A - Poisoning by unspecified drugs, medicaments and biological substances, intentional self-harm, initial encounter
[2018-12-28] MEDS: ACETAMINOPHEN 325 MG TAB PO PRN (14:33)
[2018-12-28] MEDS: KETOROLAC TROMETHAMINE 15 MG/ML VIAL IV PRN ×2 (16:23→23:33)
[2018-12-28] MEDS ORDERED: predniSONE 20 MG TAB PO ONE (19:00)
[2018-12-28] MEDS: DOXYCYCLINE HYCLATE 100 MG CAP PO SCH (20:28)
[2018-12-28] MEDS: hydrOXYzine HCl 10 MG TAB PO PRN (23:32)
[2018-12-29] MEDS ORDERED: MAGNESIUM HYDROXIDE SUSP 30 ML UDC PO ONE (04:00)
[2018-12-29] MEDS: DOXYCYCLINE HYCLATE 100 MG CAP PO SCH ×2 (08:11→22:34)
[2018-12-29] MEDS: MULTIVITAMIN TAB PO SCH (08:13)
[2018-12-29] MEDS: LIDOCAINE 5% 1 PATCH TD SCH (08:13)
[2018-12-29] MEDS: THIAMINE HCL 100 MG TAB PO SCH (08:13)
[2018-12-29] MEDS: ENOXAPARIN INJ 30 MG/0.3 ML SYR SQ SCH (08:13)
[2018-12-29] MEDS: FOLIC ACID 1 MG TAB PO SCH (08:13)
[2018-12-29] MEDS: LACTATED RINGER'S 1,000 ML IV SCH ×3 (10:26→19:34)
[2018-12-29 11:00] LABS: Hematocrit (blood only) 38.4 % (37-47); Hemoglobin 13.3 g/dL (12.0-16.0); Mean Corpuscular Hemoglobin 30.6 pg (25-34); Mean Corpuscular Hgb Conc 34.6 g/dL (32-36); Mean Corpuscular Volume 88.3 fL (80-100); Mean Platelet Volume 9.4 fL (7.4-10.4); Platelet Count 216 K/uL (130-400); RDW Coefficient of Variation 13.2 % (11.5-14.5); RDW Standard Deviation 42.3 fL (36.4-46.3); Red Blood Count 4.35 M/uL (4.2-5.4)
--- NOTE | 2018-12-29 11:12 | XRay Report ---
XR chest 1V portable CLINICAL HISTORY: LEFT MIDDLE LOBE PNEUMONIA COMPARISON STUDY: No previous studies for comparison. FINDINGS: The cardiac and mediastinal contours remain stable. There is increased density at both lung bases, finding in part secondary to overlying breast implants. Left lung pulmonary consolidation can not be excluded. A lateral study would be of benefit in follow-up. There are no significant pleural e ffusions[ IMPRESSION: 1. Difficult study to interpret due to overlying breast implants. 2. Left lower lung zone airspace opacities versus artifact from overlying breast prosthesis. A latera l view of the chest would be of benefit in follow-up Electronically signed by: Jamie Dougherty M.D. 12/29/2018 11:11 AM
--- NOTE | 2018-12-29 11:21 | Hospitalist Progress Note ---
Date of Service December 29, 2018 Assessment & Plan (1) Intentional drug overdose: She was found unresponsive by family members at home received 2 dose of Narcan by EMT with no effect Patient admits of taking multiple medications" several Cymbaltas " multiple Empty bottles found near the patient were reportedly labeled as trazodone, baclofen, tizanidine, and Ambien Patient also left a suicide note addressed to her 15 yo son 302 warrant was completed by [place] police, and petitioning statement is on chart. Patient treated in medical telemetry floor with IV fluids antibiotic For possible aspiration pneumonia Change to p.o. doxycycline, as patient developed a rash with IV Unasyn To complete total 5 days of treatment No evidence of sepsis, Has been afebrile, no cough no fever or chills Morning patient again demanded to leave AMA ( has 302 in effect ) After extensive counseling by myself and psychiatry team, She is willing to stay and seek help at psychiatry unit Appreciate input from psychiatry Patient will be discharged to inpatient psychiatric unit in next 24-48 hours She was admitted in past at [facility] [address] [facility] unit in [facility] on 07/2012: Intentional overdose of alcohol, Percocet and Ativan Recent ER visit on 10/05/2018: For intentional overdose with oxycodone Very high risk for self harm, suicide attempt, impulsive fatigue, poor judgment and insight 302 is effective pt can not leave AMA/security will be called patient is not cooperative plan to discharge to in patient Psych unit in next 24-48 hrs when medically stable , (2) Opioid dependence: fpc hx of Narcotic pain meds abuse /dependency requesting pain meds repeatedly for her back pain Ordered for Toradol as needed, heating pad Pain management consulted avoid all form of narcotics and sedative -ingestion of multiple psycotropics and muscle relaxant this admission Patient is updated, (3) History of spinal surgery: Status post posterior thoracic spinal surgery on 02/17/2019 at [place] Patient has been complaining of increased pain discomfort post back surgery CT of lumbar spine on admission: IMPRESSION: 1. Partial visualization of a thoracolumbar spine fusion. Visualized portions of the hardware is intact. 2. No acute lumbar spine fracture or subluxation. Healed L2 fracture. 3. Suboptimal evaluation of the central canal and neural foramen, particularly within the upper lumbar spine given streak artifact from hardware. No complication noted from prior spinal surgery She will continue to follow-up with orthopedics as an outpatient for her ongoing back pain LEFT MIDDLE LOBE PNEUMONIA: Chest x-ray shows left middle lobe infiltrate concerning for aspiration No evidence of sepsis, normal lactic acid patient is afebrile, vitals stable Started on IV Unasyn Patient developed diffuse drug rash Antibiotic changed to doxycycline-complete 5 days of treatment Unasyn added to patient's allergy list CODE STATUS: Full code DVT prophylaxis: Subcu Lovenox DISPOSITION: Discharge to [address] [place] [address] inpatient psychiatric unit possible tomorrow Subjective pt refused AM labs , IV fluid , took heplock off got dressed up , patient's boyfriend was present, wants to leave hospital right away pt has 302 petition active can not leave AMA , Notified psychiatric: Psych liason came to talk to pt came and spoke with pt and her Boyfriend after lot of counselling pt is willing to stay in hospital willing to take her medications and allow Lab drawn Pain management consulted as per pt's request plan is to send her to [address] [place] [address] on discharge from Medicine service Physical Exam Constitutional: WD/WN, vitals as above no acute distress awake and alert Eyes: + anicteric sclerae ENMT: external ear and nose normal, oropharynx normal Neck: trachea midline, no thyromegaly Respiratory: no respiratory distress and no cough Auscultation: no crackles, no rales and no wheezes Cardiovascular: RRR, no murmur, no edema Gastrointestinal (Abdomen): Percussion/Palpation: abdomen soft; abdomen nontender Musculoskeletal: no cyanosis or clubbing, extremities motor strength 5/5 Skin: + rash (Diffuse maculopapular rash on arms and torso-improved ) Neurologic: PERRL, EOMI, accommodation nl, no face palsy, no dysarthria Psychiatric: Orientation: alert and oriented x 3 Affect: + anxious affect Mood: + irritable mood Insight: + poor insight Judgement: + poor judgement Results & Data Vital Signs (Past 12 Hours) Vital Signs Temp Pulse Pulse Resp BP Pulse Ox 12/29/18 09:42 89 12/29/18 04:00 36.4 C L 86 18 114/79 98 (1) Intentional drug overdose Encounter type: initial encounter Qualified Code(s): T50.902A - Poisoning by unspecified drugs, medicaments and biological substances, intentional self-harm, initial encounter (2) Opioid dependence Substance use status: with unspecified opioid-induced disorder Qualified Code(s): F11.29 - Opioid dependence with unspecified opioid-induced disorder
[2018-12-29 11:26] LABS: Albumin Level 3.3 gm/dl (3.4-5.0); BUN Creatinine Ratio 15.2 (10-20); Bilirubin Direct 0.2 mg/dl (0-0.2); Calcium 8.8 mg/dl (8.5-10.1); Creatinine Clr Calc Pharmacy 90.9 ml/min; Est GFR (African American) 117.5; Est GFR (Non-African American) 101.3; Potassium 3.3 mmol/L (3.5-5.1)
[2018-12-29 11:41] LABS: Albumin Globulin Ratio 1.1 (0.9-2); Bilirubin,Total 0.5 mg/dl (0.2-1); Globulin 2.9 gm/dl (2.5-4.0); Total Protein 6.2 gm/dl (6.4-8.2)
[2018-12-29] MEDS ORDERED: RIZATRIPTAN BENZOATE MLT 10 MG TAB PO PRN (12:12)
[2018-12-29] MEDS ORDERED: POTASSIUM CHLORIDE 20 MEQ TABCR PO STA (12:13)
[2018-12-29] MEDS: KETOROLAC TROMETHAMINE 10 MG TABLET PO PRN ×2 (12:41→19:33)
[2018-12-29] MEDS ORDERED: predniSONE 20 MG TAB PO STA (15:33)
[2018-12-29] MEDS: ACETAMINOPHEN 325 MG TAB PO PRN (16:10)
[2018-12-29] MEDS: hydrOXYzine HCl 10 MG TAB PO PRN (23:19)
[2018-12-30] MEDS: LACTATED RINGER'S 1,000 ML IV SCH ×3 (01:38→09:01)
[2018-12-30] MEDS ORDERED: TRIAMCINOLONE ACET 40 MG/ML VIAL ONE (08:33)
[2018-12-30] MEDS ORDERED: predniSONE 10 MG TABLET PO SCH (09:00)
[2018-12-30] MEDS: LIDOCAINE 5% 1 PATCH TD SCH (09:00)
[2018-12-30] MEDS: THIAMINE HCL 100 MG TAB PO SCH (09:01)
[2018-12-30] MEDS: FOLIC ACID 1 MG TAB PO SCH (09:01)
[2018-12-30] MEDS: MULTIVITAMIN TAB PO SCH (09:01)
[2018-12-30] MEDS: DOXYCYCLINE HYCLATE 100 MG CAP PO SCH (09:01)
--- NOTE | 2018-12-30 09:33 | Pain Management Consultation ---
Date of Consultation December 30, 2018 Assessment & Plan (1) Myofascial pain: TRIGGER POINT INJECTION Diagnosis: Myofascial Pain Injection Site: Left Paravertebral - 2 sites Right Paravertebral - 2 sites Performed By: Marina Nguyen PA-C Prior to starting, the diagnosis and the procedure was reviewed with the patient in detail. Possible risks and complications including infection, bleeding, damage to surrounding structures and increased pain were discussed. Alternative therapies were also reviewed. All questions were answered and they agreed to proceed. Informed consent was obtained. Allergies and medication list was reviewed. The patient was placed in sitting position. Immediately prior to starting the procedure, a time out was conducted with the staff and the patient where the patient was identified, proposed procedure was verified, consent was reviewed and the proper site for the planned procedure was identified. Patient was not given any intravenous sedation and constant verbal contact was maintained throughout the procedure. On examination, no signs of skin breakdown or infection were noted at the injection site. The site was cleansed with Alcohol. Sterile technique was used throughout the procedure. After identifying skeletal landmarks, 1.5 cc was injected into each site with a solution containing 5 cc of 0.5% Ropivacaine MPF and 40 mg Kenalog. Aspiration was negative. Hemostasis noted. Patient tolerated the procedure uneventfully without complications. (2) Chronic back pain: Do not recommend opioids given recent suicide attempt. Continue Tylenol, Toradol, and Lidocaine patches. Trigger point injections were given into the paravertebral musculature for possible pain relief. Risks and benefits were reviewed. Consent was obtained. No further interventional procedures to offer at this time. Thank you for the consultation. History of Present Illness Attending Physician: Miranda Nguyen MD History of Present Illness This is a 38 year old white female that has been seen at the [facility] for chronic low back pain. Patient is currently admitted for a suicide attempt by drug overdose, aspiration pneumonia, and rhabdomyolysis. She will be at inpatient psychiatry once medically cleared. She does have a history of scoliosis and did receive a scoliosis corrective surgery which is possibly from T2-L1? (patient is unsure) by Tenisha Elder. She has continued to require opioids including Morphine and Oxycodone since the back surgery (Dr. Graham). She was taking Ms Contin 15mg BID and Oxycodone 30mg x 6 hours hours. Morphine has been discontinued and Oxycodone has been weaned down. Most recent Oxycodone prescription was 5mg #60 on 12/14. Given recent suicide attempt, she is taking Tylenol and Toradol for pain relief. She does not find Lidocaine patches to be effective. The pain is located throughout the thoracic region. The pain is described as an aching and spasming sensation. No radiation of pain. No other complaints at this time. Case discussed with Dr. Viviana Mcdonald Pain Assessment [facility] Combined Pain Scale: 8-Debilitating - Impairs activity. Can't maintain a conversation. Allergies Allergy/AdvReac Type Severity Reaction Status Date / Time cefixime Allergy Severe ANAPHYLAXIS Verified 12/27/18 22:57 erythromycin base Allergy Severe HIVES Verified 12/27/18 22:57 sodium benzoate Allergy Severe ANAPHYLAXIS Verified 12/27/18 22:57 Sulfa (Sulfonamide Allergy Intermediate ITCHY Verified 12/27/18 22:57 Antibiotics) ampicillin [From Unasyn] Allergy Rash Verified 12/28/18 18:35 sulbactam [From Unasyn] Allergy Rash Verified 12/28/18 18:35 procaine AdvReac Severe RAPID Verified 12/27/18 22:57 HEART BEAT Home Medications Home Medications Medication Instructions Recorded Confirmed Type Mirena 20 mcg INTRAUTERINE DIRECTED 03/11/18 12/27/18 History duloxetine 60 mg PO QAM 03/11/18 12/27/18 History rizatriptan 10 mg PO DIRECTED PRN 03/11/18 12/27/18 History topiramate 50 mg PO BID 03/11/18 12/27/18 History trazodone 300 mg PO HS 03/11/18 12/27/18 History amoxapine 25 mg PO QAM 08/09/18 12/27/18 History morphine 15 mg PO BID PRN 08/09/18 12/27/18 History ondansetron 4 mg TRANSLINGUAL Q8H PRN 08/09/18 12/27/18 History promethazine 25 mg PO Q6H PRN 08/09/18 12/27/18 History tizanidine 6 mg PO Q6H PRN 08/09/18 12/27/18 History naloxone [Narcan] 1 spray INTRANASAL DIRECTED PRN 10/04/18 12/27/18 History Patient History Medical History Intentional drug overdose Rhabdomyolysis (Acute) Aspiration into airway (Acute) Opioid dependence (Chronic) Chronic constipation (Chronic) Migraine (Chronic) Chronic back pain Depression (Chronic) Anxiety (Chronic) Neck pain (Chronic) Surgical History History of appendectomy (Resolved) History of spinal surgery (Chronic) 02/17/2018 - Arthrodesis spine posterior thoracic. Posterior spinal segmental instrumentation 7 to 12 PSF Social History Preferred Language: Serbian Communication Ability: Effective Hand Folder Required: No Beliefs That Will Affect Care: Spiritual marital status: Single Current Living Situation: Alone Feels Safe at Home: Yes Smoking Status: Current every day smoker Hx Alcohol Use: Yes Hx Substance Use: Yes substance use type: other Substance Use Type Other:: see chart/lab results Last Used Substance: Just Prior to Arrival Physical Exam Physical Exam: GENERAL: 38 year old white female. She is on a one and one with staff member. Speech and cognition is intact. Mood and affect is appropriate. Does not appear in acute distress. BACK: There is a large well healed surgical incision along the upper thoracic to the mid lumbar region. There is moderate spasm and trigger points along the paravertebral muscles that are exquisitely tender to palpation. No midline tenderness. NEURO: Ambulates well. Awake, alert, and oriented x 3.
--- NOTE | 2018-12-30 11:21 | Discharge Summary ---
Date of Service December 30, 2018 Admission HPI Per Admitting Provider 38-year-old female admitted medically on 12/27/2018 status post intentional overdose of multiple unknown substances. Patient was found by family to be unresponsive at home, and remained obtunded after receiving 2 doses of Narcan in the field. 302 warrant was completed by [employer], and petitioning statement is on chart. A suicide note addressed to the patient's son was also found. It was reported that the patient was found with multiple empty pill bottles surrounding her, and some noted emesis. She was admitted medically for treatment of sepsis, likely secondary to aspiration pneumonia related to intentional drug overdose. She was also found to have rhabdomyolysis as well. Psychiatric consultation is requested to evaluate patient status post intentional overdose. Patient's case was reviewed with psychiatric nurse liaison and supervising psychiatrist. 302 Warrant was completed by [employer] reporting findings of scene on arrival. Statement reads: "On 12/28/18, I responded to [address] [place] [id number] for an overdose. I arrived on scene and observed Nay passed out on the sofa. There were 2 prescription pill bottles next to Nay on the sofa. I found another pill bottle on her bed and one on the floor next to her bed. 3 of 4 bottles were empty. I am unsure how many pills and exactly what Nay took. I found a suicide note at the foot of Pauline bed. A copy of that note is attached to this petition. Nay was given Narcan that provided no effect." Empty bottles found near the patient were reportedly labeled as trazodone, baclofen, tizanidine, and Ambien. It is reportedly unclear what the patient actually ingested. Police also reported finding a "suicide note" addressed to the patient's son. It reads "Please don't be mad. I just couldn't stand the pain anymore. I don't understand how one person can cause so much pain for someone but this doctor did this to me. It hurts to breath. It hurts to walk. I can't sleep well or even eat. I don't want to be anyone's problem anymore. I can't begin to tell you how sorry I am. I love you." Patient is cooperative with psychiatric evaluation, and is initially found to have multiple visitors in her room. Patient introduces this provider to her mother, Tanja, sister, Esther, and father, Orlando. Patient verbalizes permission for visitors to remain in room during evaluation, but was encouraged to inform this provider if she would like to get us to leave. After several minutes of the interview, and input from family that was clearly upsetting to the patient, this provider stated she would prefer to complete the rest of the assessment one-on-one. Patient requested that her family leave the room at this time. One-to-one sitter remained in room with patient's permission. While family was present, the patient's mother verbalized that the patient had a suicide attempt, left a suicide note, and is "very belgica that we found you or you would have ." The patient's mother states that they have been noticing the patient sleeping "all day." And that they have been concerned about her. When a friend was unable to reach the patient, the family grew concerned and made attempts to visit her. The patient's apartment was locked, which required them getting in touch with the patient's 17-year-old son for the guidry. After gaining entry into the apartment, the patient's mother and sister verbalize that they found the patient unresponsive on her living room floor. They state "the television was still on, the lights were on in the apartment. She was just laying there with pill bottles everywhere." When discussing history of diagnoses, the patient's mother states that the patient has been diagnosed with borderline personality disorder. The patient becomes angry after this statement, telling her mother this is not the case, that the diagnosis is not anywhere in her psychiatric records, and that she needs to "just sit there and shut your mouth." It was at this point that this provider prompted the family to leave the room. Patient verbalizes that the overdose was not an attempt to end her life; however, just an attempt to "get a relief from the pain." Patient states that she has taken multiple medications at a time in the past," this is never happened before, I never before." The patient denies anything significant about the ingestion of medications yesterday, stating it was not an unusual amount or an unusual combination. The patient was queried about the note she admits to leaving for her son, but states this was written several weeks ago. Patient adamantly denies that this was a suicide note, stating she had just written it to express to her son the pain that she had been in. According to the patient she had taken "several Cymbalta and maybe 3 or 4 anxiety medications [tablets]", but otherwise is unable to recall exactly what was ingested. According to the patient, her mood and anxiety have been responding well to her current medications. She states that the pain she is in is her primary concern, and does not feel that she needs specific mental health interventions. The patient does state that her PCP was cross titrating her from duloxetine to bupropion on an outpatient basis. The patient states she had not yet started the bupropion, her toxicology screen is positive for MDMA. Patient does admit to experiencing suicidal ideation about 6 months ago, again related to her level of pain. She denies suicide attempt at that time, and is now stating "if I really wanted to end my life, I would have done it much sooner than this." Patient states that she has an outpatient therapy appointment scheduled on "Thursday" and will be willing to continue outpatient psychiatric treatment. At this time, the patient is not willing for inpatient psychiatric admission. The likely recommendation for inpatient psychiatric admission was explained to the patient at time of evaluation. Going up Pt denies current SI, HI, SIB, A/V hallucinations, paranoia, gabriel/hypomania, other symptoms more suggestive of a bipolar presentation, OCD, PTSD, eating disorder, and other specific psychiatric symptoms. Principal Diagnosis Intentional drug overdose Narcotic pain medication dependency Pneumonia Discharge Exam Constitutional WD/WN, vitals as above no acute distress Eyes + anicteric sclerae ENMT external ear and nose normal, oropharynx normal Neck trachea midline, no thyromegaly Respiratory no respiratory distress and no cough Auscultation: no crackles, no rales and no wheezes Cardiovascular RRR, no murmur, no edema Gastrointestinal (Abdomen) Percussion/Palpation: abdomen soft; abdomen nontender Musculoskeletal no cyanosis or clubbing, extremities motor strength 5/5 Skin + rash (Diffuse maculopapular rash on arms and torso-improved ) Neurologic PERRL, EOMI, accommodation nl, no face palsy, no dysarthria Psychiatric Orientation: alert and oriented x 3 Discharge Data Allergies Allergy/AdvReac Type Severity Reaction Status Date / Time cefixime Allergy Severe ANAPHYLAXIS Verified 12/27/18 22:57 erythromycin base Allergy Severe HIVES Verified 12/27/18 22:57 sodium benzoate Allergy Severe ANAPHYLAXIS Verified 12/27/18 22:57 Sulfa (Sulfonamide Allergy Intermediate ITCHY Verified 12/27/18 22:57 Antibiotics) ampicillin [From Unasyn] Allergy Rash Verified 12/28/18 18:35 sulbactam [From Unasyn] Allergy Rash Verified 12/28/18 18:35 procaine AdvReac Severe RAPID Verified 12/27/18 22:57 HEART BEAT Consultations 12/27/18 22:10 ED Decision to Admit Stat 12/28/18 00:29 Consult Case Management - Discharge Planning Routine Consult Psychiatry Routine 12/29/18 10:13 Consult Pain Management Routine Ordered Studies 12/27/18 20:47 CT head/brain wo con Stat CT head/brain wo con CLINICAL HISTORY: Acute change in mental status. Unconsciousness. Possible drug overdose. COMPARISON STUDY: 10/05/2018 TECHNIQUE: Axial CT of the brain is performed from the vertex to the skull base. IV contrast was not administered for this examination. A dose lowering technique was utilized adhering to the principles of ALARA. CT DOSE: 614.27 mGy.cm FINDINGS: No intra or extra-axial mass lesions are visualized. There is no CT evidence of acute cortical infarction. There is no evidence of midline shift. There is no acute hemorrhage. No calvarial fractures are visualized. There is no evidence of pathologic ventricular dilatation. There is no evidence of acute sinusitis IMPRESSION: No acute intracranial findings 12/27/18 23:32 CT lumbar spine w con Urgent CT OF THE LUMBAR SPINE WITH CONTRAST CLINICAL HISTORY: sepsis, worsening back pain COMPARISON STUDY: CT of the abdomen and pelvis October 05, 2018. TECHNIQUE: Axial images of the lumbar spine were obtained following intravenous injection of 93 cc of Optiray 320 IV. Sagittal and coronal reconstructions were viewed. Study was performed utilizing automated exposure control for dose reduction and according to ALARA principles. FINDINGS: Thoracolumbar spine fusion is partially imaged on this examination with pedicles screws visualized at the L1 and L2 levels. Visualized portions of the hardware are intact. There is mild levoscoliosis of the lumbar spine. A multilevel posterior decompression is noted. The central canal and neural foramen are suboptimally assessed by CT as well as streak artifact from the surgical hardware. Paravertebral soft tissues are unremarkable. There is no acute lumbar spine fracture. Sacroiliac joints are intact. There is a 2 mm right renal calculus. The L2 fracture shown on exam of October 05, 2018 has healed. IMPRESSION: 1. Partial visualization of a thoracolumbar spine fusion. Visualized portions of the hardware is intact. 2. No acute lumbar spine fracture or subluxation. Healed L2 fracture. 3. Suboptimal evaluation of the central canal and neural foramen, particularly within the upper lumbar spine given streak artifact from hardware. Hospital Course (1) Intentional drug overdose: Awake and alert, patient is very cooperative and pleasant today Mentions she had a good night sleep She was found unresponsive by family members at home received 2 dose of Narcan by EMT with no effect Patient admits of taking multiple medications" several Cymbalta " multiple Empty bottles found near the patient were reportedly labeled as trazodone, baclofen, tizanidine, and Ambien Patient also left a suicide note addressed to her 17 yo son 302 warrant was completed by [employer], and petitioning statement is on chart. Patient treated in medical telemetry floor with IV fluids antibiotic For possible aspiration pneumonia Change to p.o. doxycycline, as patient developed a rash with IV Unasyn To complete total 5 days of treatment No evidence of sepsis, Has been afebrile, no cough no fever or chills Morning patient again demanded to leave AMA ( has 302 in effect ) After extensive counseling by myself and psychiatry team, She is willing to stay and seek help at psychiatry unit Appreciate input from psychiatry Patient will be discharged to inpatient psychiatric unit in next 24-48 hours She was admitted in past at [facility] unit in [facility] on 07/2012: Intentional overdose of alcohol, Percocet and Ativan Recent ER visit on 10/05/2018: For intentional overdose with oxycodone Very high risk for self harm, suicide attempt, impulsive fatigue, poor judgment and insight 302 is effective pt can not leave AMA/security will be called patient is not cooperative plan to discharge to in patient Psych unit in next 24-48 hrs when medically sta ble , (2) Opioid dependence: [facility] hx of Narcotic pain meds abuse /dependency requesting pain meds repeatedly for her back pain Ordered for Toradol as needed, heating pad Pain management consulted avoid all form of narcotics and sedative -ingestion of multiple psycotropics and muscle relaxant this admission Patient is updated, (3) History of spinal surgery: Status post posterior thoracic spinal surgery on 02/17/2019 at [place] Patient has been complaining of increased pain discomfort post back surgery CT of lumbar spine on admission: IMPRESSION: 1. Partial visualization of a thoracolumbar spine fusion. Visualized portions of the hardware is intact. 2. No acute lumbar spine fracture or subluxation. Healed L2 fracture. 3. Suboptimal evaluation of the central canal and neural foramen, particularly within the upper lumbar spine given streak artifact from hardware. No complication noted from prior spinal surgery She will continue to follow-up with orthopedics as an outpatient for her ongoing back pain LEFT MIDDLE LOBE PNEUMONIA: Chest x-ray shows left middle lobe infiltrate concerning for aspiration No evidence of sepsis, normal lactic acid patient is afebrile, vitals stable Started on IV Unasyn Patient developed diffuse drug rash Antibiotic changed to doxycycline-complete 5 days of treatment Unasyn added to patient's allergy list CODE STATUS: Full code DVT prophylaxis: Subcu Lovenox DISPOSITION: Stable to be discharged to [facility]. inpatient psychiatric unit today Total Time Total Time Spent Total Time Spent (In Minutes): Approximately 50 minutes Total Time Includes: Examination of the Patient, Discharge Planning, Medication Reconciliation and Communication With Other Providers Discharge Plan Discharge Items Patient Disposition: Transfer Behavioral Health Fac Reason For Visit: SEPSIS Discharge Diagnosis: Intentional drug overdose Narcotic pain medication dependency Pneumonia Activity: Resume your previous activity Non-emergency contact: Primary Care Provider Call non-emergency contact if: you have any medication questions Follow-up/Referrals: Viviana Mcdonald DO [Physician] - (PAIN MANAGEMENT CLINIC FOLLOW UP FOR CHRONIC BACK PAIN ) Kaleb Aviles DO [Primary Care Provider] - Diet: Regular Addtl Attending Provider Instructions: Follow-up with family physician after discharge from mental health unit Please avoid narcotic pain medications -will lead to addiction with minimal benefit to chronic back pain you received trigger point steroid injection on your back by pain management team today May need to have a repeat procedure in 3 to 6 months pain symptoms return Follow up at Pain management clinic with Dr Viviana Mcdonald for chronic back pain Please follow-up with your orthopedics Dr Clark Graham at [facility]-for continued management of back surgery Scheduled with rheumatology appointment with Miladys Winn PA-C at rheumatology clinic at [facility] on 02/17/2019 at 9 AM YOUR ANTIDEPRESSANTS AND MUSCLE RELAXANT MEDS ARE KEPT ON HOLD FOR RECENT OVERDOSE PLEASE HAVE THE PSYCHIATRY TEAM EVALUATE YOUR MEDICATION LIST AND ADJUST /RESUME MEDICATIONS NEEDED COMPLETE 5 DAYS OF DOXYCYCLINE 1 TAB TWICE DAILY -ANTIBIOTIC FOR PNEUMONIA Pending Studies at Discharge: No Stand-Alone Forms: My [facility] [employer], Suicide Prevention Resources Skilled Items DNR: No Lines: None Urinary Catheter: No Medications and DC Order Prescriptions: New doxycycline hyclate 100 mg Capsule 100 mg PO BID 5 Days Qty: 10 RF: 0 ketorolac 10 mg Tablet 10 mg PO Q6H PRN (Reason: oain) Qty: 30 RF: 0 diphenhydramine HCl [Benadryl] 25 mg Capsule 25 mg PO Q6 PRN (Reason: itching /rash) Qty: 30 RF: 0 Continued Mirena 20 mcg/24 hr (5 years) Intrauterine Device 20 mcg Intrauterine DIRECTED RF: 0 rizatriptan 10 mg tablet,disintegrating 10 mg PO DIRECTED PRN (Reason: Migraine Headache) RF: 0 topiramate 50 mg tablet 50 mg PO BID RF: 0 ondansetron 4 mg tablet,disintegrating 4 mg translingual Q8H PRN (Reason: Nausea) RF: 0 promethazine 25 mg tablet 25 mg PO Q6H PRN (Reason: Nausea) RF: 0 Discontinued Narcan 4 mg/actuation spray,non-aerosol 1 spray intranasal DIRECTED PRN (Reason: Opioid Overdose) RF: 0 trazodone 300 mg tablet 300 mg PO HS RF: 0 duloxetine 60 mg capsule,delayed release(DR/EC) 60 mg PO QAM RF: 0 tizanidine 2 mg tablet 6 mg PO Q6H PRN (Reason: Muscle Spasm) RF: 0 morphine 15 mg tablet extended release 15 mg PO BID PRN (Reason: Pain) RF: 0 amoxapine 25 mg tablet 25 mg PO QAM RF: 0 Discharge Orders: Discharge Order (Routine); Ordered 12/30/18 Ordered By: Miranda Nguyen Admission Data Admit Date/Time: 12/27/18 23:32 Attending Provider: Miranda Nguyen Admit Provider: Charlie Carrion Primary Care Provider: Kaleb Aviles Other Providers: Charlie Carrion ; Vanessa Serrano Jennifer L Other Interventions: Discharge Summary Assessment (RN) Last Done: 12/30/18 11:18 DC Date/Time DO NOT enter until pt leaves facility: 12/30/18 14:42
[2018-12-30] MEDS ORDERED: MAGNESIUM HYDROXIDE SUSP 30 ML UDC PO PRN (11:28)
[2018-12-30] MEDS ORDERED: MAGNESIUM HYDROXIDE SUSP 30 ML UDC ONE (11:31)
== END 2018-12-30 14:42 | DRG 917 ==
LOC: ED 20:35 → 2W 23:32

== ENCOUNTER 2018-12-30 13:38 | Inpatient (IN) ==
[2018-12-30] MEDS ORDERED: SODIUM CHLORIDE 0.65% NA SOLN 45 ML (OCEAN) PRN (15:39)
[2018-12-30] MEDS ORDERED: ACETAMINOPHEN 325 MG TAB PO PRN (15:39)
[2018-12-30] MEDS ORDERED: ALUMINUM/MAGNESIUM SUSP 30 ML UDC PO PRN (15:39)
[2018-12-30] MEDS ORDERED: PROMETHAZINE HCL 25 MG TAB PO PRN (15:55)
[2018-12-30] MEDS ORDERED: RIZATRIPTAN BENZOATE MLT 10 MG TAB PO PRN (15:55)
[2018-12-30] MEDS ORDERED: NON-FORMULARY MEDICATION (Levonorgestrel [Mirena] 20 MCG) IU SCH (16:00)
[2018-12-30] MEDS: TOPIRAMATE 50 MG TAB PO SCH (21:17)
[2018-12-30] MEDS: DOXYCYCLINE HYCLATE 100 MG CAP PO SCH (21:17)
[2018-12-30] MEDS: KETOROLAC TROMETHAMINE 10 MG TABLET PO PRN (21:54)
[2018-12-30] MEDS ORDERED: LIDOCAINE 5% 1 PATCH TD PRN (22:10)
[2018-12-31] MEDS: DOXYCYCLINE HYCLATE 100 MG CAP PO SCH (07:22)
[2018-12-31] MEDS: KETOROLAC TROMETHAMINE 10 MG TABLET PO PRN (07:22)
[2018-12-31] MEDS: TOPIRAMATE 50 MG TAB PO SCH (07:22)
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
[2018-12-31] MEDS ORDERED: DESTROY THIS MEDICATION ONE (17:43)
--- NOTE | 2018-12-31 18:47 | Discharge Summary ---
Date of Service December 31, 2018 History of Present Illness The patient is a 38-year-old woman who reports that she has a history of recurrent major depression. The patient's mother tells us, with the patient's objection, that the patient has a primary diagnosis of borderline personality disorder. She had been admitted to the hospital through the emergency room on 12/27/2018 following what she initially claimed was an accidental overdose of multiple different psychiatric medications, but what she is now acknowledging was a deliberate drug overdose of a number of prescription medications. Patient was found by family to be unresponsive at home, and remained obtunded after receiving 2 doses of Narcan in the field. 302 warrant was completed by [employer], and petitioning statement is on chart. A suicide note addressed to the patient's son was also found. It was reported that the patient was found with multiple empty pill bottles surrounding her, and some noted emesis. She was admitted medically for treatment of sepsis, likely secondary to aspiration pneumonia related to intentional drug overdose. She was also found to have rhabdomyolysis as well. Psychiatric consultation is requested to evaluate patient status post intentional overdose. Patient's case was reviewed with psychiatric nurse liaison and supervising psychiatrist. 302 Warrant was completed by [employer] reporting findings of scene on arrival. Statement reads: "On 12/28/18 [sic], I responded to [address] for an overdose. I arrived on scene and observed Nay passed out on the sofa. There were 2 prescription pill bottles next to Nay on the sofa. I found another pill bottle on her bed and one on the floor next to her bed. 3 of 4 bottles were empty. I am unsure how many pills and exactly what Nay took. I found a suicide note at the foot of Pauline bed. A copy of that note is attached to this petition. Nay was given Narcan that provided no effect." Empty bottles found near the patient were reportedly labeled as trazodone, baclofen, tizanidine, and Ambien." It is reportedly unclear what the patient actually ingested. Police also reported finding a "suicide note" addressed to the patient's son. It reads "Please don't be mad. I just couldn't stand the pain anymore. I don't un derstand how one person can cause so much pain for someone but this doctor did this to me. It hurts to breath. It hurts to walk. I can't sleep well or even eat. I don't want to be anyone's problem anymore. I can't begin to tell you how sorry I am. I love you." On admission to the behavioral health unit the patient continued to asserts that her overdose had been accidental. However, following further evaluation and in the face of information provided by the patient's mother the patient acknowledges that, in fact, she had taken an overdose deliberately with the intent of committing suicide. She explains that she initially started out by taking a number of muscle relaxants and other pills in order to achieve pain relief. As the pills that she was taking began to have an effect, she became "kind of confused" and finally reportedly said to herself, "oh, what the hell," and she decided to take more pills with the intent of dying. Complicating the clinical picture is the fact that the patient has been taking large amounts of opioid-based pain medications because of which she refers to as "botched" surgery in January 2018 for scoliosis. Subsequent to that surgery she has had excruciating back pain that only became worse following a surgical revision of the original surgery at the beginning of the summer 2018. According to the PDMP, beginning on 08/05/2018 the patient has been issued 382 tablets of oxycodone 30 mg. There were a number of additional prescriptions during the same time. For morphine and other opioid-based pain medications. Also, the state database shows that she had many prescriptions for opioid-based pain medications prior to 08/05/2018. Unfortunately, the patient's veracity is questions and she is not necessarily considered to be a reliable digital court reporter. For example, on 12/31/2018 in a interview with the patient's mother it was revealed that the patient had been telling her family for the past 9 months that she had AIDSevidently as part of a plan to get him to support herand the patient admitted that she had fabricated the reported diagnosis of AIDS for that purpose. Physical Exam Psychiatric Orientation: alert, oriented x 3 and cooperative Apperance: appropriately dressed, appropriately groomed and appeared stated age Eye Contact: good eye contact Motor Behavior: steady gait and station Speech: normal rate/rhythm/volume of speech Affect: euthymic affect "A little anxious about going home. Better." Thought Process: goal directed thought process, linear/logical thought process and clear/coherent thought process Thought Content: reality based without delusions Suicidal Thoughts: denies suicidal thoughts Homicidal Thoughts: denies homicidal thoughts Hallucinations: no auditory hallucinations Cognition: recent memory grossly intact, remote memory grossly intact, attention grossly intact and language grossly intact Insight: + fair insight Judgement: good judgement Vital Signs (Past 24 Hours) Last Vital Signs Temp 36.3 C L 12/31/18 17:57 Pulse 82 12/31/18 17:57 Resp 18 12/31/18 17:57 BP 132/86 12/31/18 17:57 Pulse Ox 98 12/31/18 17:57 Principal Diagnosis Depression, NOS Psychiatric Data During the brief course of hospitalization the patient was offered various modalities of psychiatric treatment and education. The patient remained heavily focused on her pain and repeatedly ask for various pain management medications, including opioid-based pain medications and muscle relaxants. Pain management was consulted and made specific recommendations and interventions. These recommendations and interventions did not include opioid-based pain medications, nor do they include muscle relaxants, and was explained to the patient that we would be disinclined to provide these medications without a recommendation in this regard from the paint factory worker. We also talked at some length with her about her history of use of opioid-based pain medications. We pointed out to her, and with her permission, to her family that she had been prescribed and filled over 380 OxyContin 30 mg tablets since 08/05/2018, and, in addition, had been given several additional filled prescriptions for morphine and Suboxone. According to the state database, the most recent prescription for OxyContin had been #60 30 mg tablets on 12/14/2018, and she tells us that while she did not overdose on these medications she was out of them when she took the overdose that led to the admission. We told the patient was suspected that she may have been experiencing opioid withdrawal, and she acknowledged that this might of been possible. In group therapies, the patient focused heavily on her desire for analgesic medications and her chronic pain. The patient's family understandably stressed her need for pain management, but today indicated when it was explained to them that large quantities of opioids, and multiple psychiatric medications can have adverse effects, including reduced impulse control and worsening depression --without necessarily providing the pain relief desired. We are encouraging the patient to follow through on pain management strategies that have already been recommended, and she indicates that she plans to consult with a specialist in [place] in the near future. She was advised to restart duloxetine 60 mg as her antidepressant. At our request, the patient's mother went to the patient's apartment, collected her medication bottles (including several empty medication bottles), and brought them to the hospital so that, with the patient's permission, we could destroy those medicines that she is not to continue to take and sent home with her those medications that she may continue to take on an as-needed basis. We also asked the patient to take the initiative to set up aftercare appointments, and with staff assistance she was able to secure an appointment with a psychiatrist as well as an appointment with an individual therapist. The patient made a commitment to continue treatment on an outpatient basis. She also formulated a plan for safety in the community. She agrees that seeking medications from multiple different physicians can be dangerous, and she agreed that she will advise each physician that she has a history of opioid medication dependence, and that opioids had been discontinued successfully during her current hospital stay. Patient also says that if suicidal thoughts reemerge she will contact her boyfriend or her mother, and if those individuals are not available she will come to the local emergency room for further help. Day of Discharge Assessment The patient fully cooperative with the discharge interview. She was found to be appropriately dressed and groomed. Her speech was delivered at a normal rate and volume. The patient's thought processes demonstrated tight associations. She reports that her mood is "much better," and "a little nervous because of the pain, but I am okay." The patient's affect is bright, and she tells us that she is excited about the prospects of going home and "starting over." The patient's thought processes demonstrate tight associations. Her thought content is devoid of any psychotic features. She tells me that she recognizes that it will be important for her to simplify her medication regimen and she says that she is eager to avoid returning to the use of opioids and other medications that can potentially cause cognitive impairment, impulse control reduction, and worsening depression. Transition of Care Transition Of Care Record: was reviewed with the patient Advance Directives Advance Directives Information Provided: Yes Advance Directives: No Mental Health Advance Directive: No Advance Directives on File: No Living Will: No Power of Angiography Technologist: No Advance Directives Reason:: Declines as Mental Health Visit. Risk Factors Assessment History of suicide attempts. Depression. Difficulty with mood regulation. Chronic pain. Opioid medication dependence. Mitigating factors include motivation to recovery and supportive family/friends. Male: No : Yes Do You Have Access To A Gun?: No Health Problems: Yes Mental Health Diagnoses: Yes Substance Use Disorders: Yes Previous Attempt: Yes Previous Attempt; Highly Lethal: No Previous Attempt; Planned: No Previous Attempt; Didn't Tell Anyone: No Family History of Suicide: No Previous Psychiatric Hospitalization: Yes Hopelessness: No Smoker: No Protective Factors Assessment Mormonism Beliefs: Yes (Islam.) : Yes (Patient reports that, technically, she is still . However, she has been from her for approximately 10 years. Her hope is that perhaps she and her will eventually reconciled.) Responsible for Young Children: No Employed: No Stable Relationships: Yes Supportive Family: Yes Good Rapport with Provider: Yes Absence of Any Risk Factors Above: No Tobacco Cessation at Discharge Tobacco Cessation Medication Prescribed at Discharge: Not Applicable/Non-Smoker Total Time Total Time Spent: Greater Than 30 Minutes Total Time Includes: Examination of the patient, Discharge Planning, Medication Reconciliation and Communication with other providers Hospital Course (1) Suicidal ideation: 12/31/18 -Today, the patient acknowledges that, in fact, the overdose of prescription medications that she took at the beginning of the week was a deliberate suicide attempt. (She had previously been asserting that it had been accidental.) -The patient continues to report that she is not having any thoughts of suicide. She explains that the thoughts of suicide that occurred were fairly impulsive. She notes that she had not started taking the overdose with the intent to kill herself and, initially, the intent was to achieve pain relief. However, as the effect of the drugs began to take hold her impulse control diminished and she eventually decided to take a deliberate overdose with the intent to . She notes that she had not had suicidal intent prior to that time and has not had any suicidal thoughts subsequent to regaining consciousness following the suicide attempt. (2) Depression: 12/31 -Patient reports that she has a history of recurrent depression and is supposed to be taking several antidepressant medications, although she also acknowledges that she has been nonadherent. -She does indicate that she sometimes has difficulty regulating her mood. As noted above, the patient's mother has advised us that, in fact, the patient's real primary diagnosis is borderline personality disorder. However, the patient objects to this characterization and notes that it is not true. -Objectively, the patient does not appear to be depressed. Her affect is fairly bright and animated. Although she reports that she is experiencing chronic pain, she is fairly actively on the unit. Her appetite is been good, and she seems to be sleeping well at this point. -We are planning to restart duloxetine 60 mg today. Mental Health & Subst Abuse Tx Psychiatrist Name of Psychiatrist: Braulio Stokes Psychiatrist's Date of Appointment with Psychiatrist: 01/31/19 Time of Appointment with Psychiatrist: 09 Therapist Name of Therapist: Laxmi @ [facility] Date of Therapist Appointment: 01/04/19 Time of Therapist Appointment: 1000 Rope Twisting Machine Operator Name of Rope Twisting Machine Operator: Denies Post Discharge Appointments Primary Care Physician Name Of Family Doctor: Kaleb Aviles Smoking Cessation Counseling Tobacco Cessation Medication Prescribed at Discharge: Not Applicable/Non-Smoker Discharge Plan Discharge Items Patient Disposition: Home - Self-Care Reason For Visit: DEPRESSION NOS Discharge Diagnosis: Depression, NOS Activity: Resume your previous activity Non-emergency contact: Primary Care Provider, Psychiatrist and Therapist Call non-emergency contact if: you have any medication questions and your symptoms worsen Follow-up/Referrals: Kaleb Aviles, DO [Primary Care Provider] - Diet: Regular Addtl Attending Provider Instructions: Use coping strategies. Remember narcotic medications can worsen judgement, contribute to impulsivity, and worsen depression/mood regulation. Pending Studies at Discharge: No Stand-Alone Forms: My [facility], Smoking Cessation Medications and DC Order Prescriptions: New lidocaine 5 % Adhesive Patch,Medicated 1 patch transdermal DAILY Qty: 30 RF: 0 Continued duloxetine 60 mg capsule,delayed release(DR/EC) 60 mg PO DAILY RF: 0 hydroxyzine HCl 25 mg Tablet 25 mg PO HS RF: 0 doxycycline hyclate 100 mg Capsule 100 mg PO BID 5 Days Qty: 9 RF: 0 Mirena 20 mcg/24 hr (5 years) Intrauterine Device 20 mcg Intrauterine DIRECTED RF: 0 rizatriptan 10 mg tablet,disintegrating 10 mg PO DIRECTED PRN (Reason: Migraine Headache) RF: 0 topiramate 50 mg tablet 50 mg PO BID RF: 0 ketorolac 10 mg Tablet 10 mg PO Q6H PRN (Reason: oain) Qty: 30 RF: 0 diphenhydramine HCl [Benadryl] 25 mg Capsule 25 mg PO Q6 PRN (Reason: itching /rash) Qty: 30 RF: 0 Discontinued amoxapine 25 mg tablet 25 mg PO DAILY RF: 0 buspirone 10 mg Tablet 10 mg PO BID RF: 0 bupropion HCl [Wellbutrin SR] 100 mg Tablet Sustained-Release 12 Hr 100 mg PO DAILY RF: 0 trazodone 300 mg Tablet 300 mg PO HS RF: 0 Discharge Orders: Discharge Order (Routine); Ordered 12/31/18 Ordered By: Clark Mcneill Admission Data Admit Date/Time: 12/30/18 14:42 Attending Provider: Vanessa Serrano Admit Provider: Vanessa Serrano Primary Care Provider: Kaleb Aviles Other Interventions: Discharge Summary Assessment (RN) Last Done: 12/31/18 17:57 PSY Interdisciplinary Discharge Planning Last Done: 12/31/18 17:01 DC Date/Time DO NOT enter until pt leaves facility: 12/31/18 18:20 C[place] [address] D/C day mgmt > 30 min Patient Type Established Medical Decision Making Moderate Complexity Diagnoses Suicidal ideation R45.851 Depression F32.9 Depression Type: unspecified Time Spent (min) 60
== END 2018-12-31 18:20 | disposition home or self-care (01) | DRG 881 ==
LOC: 3S 14:42